=== PATIENT | female | born 1985 | race African-American/Black ===

== ENCOUNTER 2023-07-28 01:54 | Emergency (ER) | payer OTHER, MEDICAID, SELFPAY ==
[2023-07-28] VITALS (7 sets, daily range): BP systolic 102–127; BP diastolic 48–76; PULSE 58–95; RESP 14–16; TEMP 36.1–36.7; O2SAT 97–99; BMI 33.8
--- NOTE | 2023-07-28 | ECG_ITS ---
Test Reason : CHEST PAIN Blood Pressure : / mmHG Vent. Rate : 074 BPM Atrial Rate : 074 BPM P-R Int : 162 ms QRS Dur : 078 ms QT Int : 360 ms P-R-T Axes : 026 006 041 degrees QTc Int : 399 ms Normal sinus rhythm with sinus arrhythmia Cannot rule out Anterior infarct , age undetermined Abnormal ECG No previous ECGs available Referred By: Britt Lei Electronically Signed By:DANO MONTES
--- NOTE | ~2023-07-28 | XR_ITS ---
EXAMINATION: XR CHEST CLINICAL INFORMATION: Chest pain, shortness of breath COMPARISON: None available. TECHNIQUE: Frontal view of the chest was obtained. FINDINGS: The lungs are clear with no focal consolidation. No evidence of pneumothorax, pulmonary edema, or pleural effusions. The cardiomediastinal silhouette is unremarkable. No acute osseous findings. XR/XR chest 1V IMPRESSION: No acute cardiopulmonary findings.
--- OUTSIDE RECORDS SUMMARY | 2023-07-28 03:55 | XMS_ITS | Continuity of Care Document ---
Author Name Unknown Organization [facility] Adult Address [address] [place] [address]- Care Team Providers Care Heavy Equipment Sales Manager Name Role Phone Katie NOVOA, Alanis Primary Care Physician Encounter [facility] [place] Date(s): 06/07/21 - 07/07/[address] [address]- Allergies, Adverse Reactions, Alerts Substance Reaction Severity Status vancomycin pruritus Active RisperDAL Active Immunizations Given and Recorded Vaccine Date Status Refusal Reason SARS-CoV-2 (COVID-19) mRNA BNT-162b2 vac 04/15/21 Recorded SARS-CoV-2 (COVID-19) mRNA BNT-162b2 vac 03/25/21 Recorded influenza virus vaccine, inactivated 06/22/20 Francisco J rded influenza virus vaccine, inactivated 06/18/18 Francisco J rded influenza virus vaccine, inactivated 1 06/08/17 Gi kinsey influenza virus vaccine, inactivated 06/06/17 Francisco J rded influenza virus vaccine, inactivated 2 07/26/16 Gi kinsey influenza virus vaccine, inactivated 3 08/21/15 Re corded influenza virus vaccine, inactivated 4 05/25/14 Gi kinsey Influenza Virus Vaccine (oldterm) 06/08/20 Recorde d tetanus/diphtheria/pertussis, acel(Tdap) 09/03/17 Given hepatitis B adult vaccine 11/22/11 Recorded Hepatitis A Adult Vaccine 11/22/11 Recorded Human Papillomavirus Vaccine 07/27/08 Recorded tetanus-diphtheria toxoids (Td) 5 08/04/07 Given tetanus-diphtheria toxoids (Td) 6 07/28/98 Given hepatitis B pediatric vaccine 7 02/16/03 Given hepatitis B pediatric vaccine 8 07/22/00 Given hepatitis B pediatric vaccine 9 07/28/98 Given 1Admin Note: work 2[facility] Note: [facility] 3Result Comment: [09/18/2015] work 4Result Comment: wrong pt/tm 5Admin Note: VIS 6Admin Note: Given by nurse 7Admin Note: given by another practices. 8Admin Note: given by another practices. 9Admin Note: given by another practices. Medications ibuprofen 400 mg oral tablet 1, tablet, By Mouth, 2 times a day, PRN, # 60 tablet, Refills 1, Tot. Refills 0, Acute, NEEDED FOR MODERATE PAIN, 02/26/21 11:05:00 EDT, Route to Pharmacy Electronically, [facility], 162.5, cm, 01/15/21 9:10:00 EDT, Height Start Date: 02/26/21 Status: Ordered pantoprazole 40 mg oral delayed release tablet 1 tablet = 40 mg, By Mouth, Daily, # 30 tablet, 1 Refills, Maintenance, 05/03/21 15:46:00 EDT, EC Tablet, 162.5, cm, 05/03/21 13:05:00 EDT, Height Start Date: 05/03/21 Status: Ordered ZyrTEC 10 mg oral tablet 1 tablet = 10 mg, By Mouth, Daily, # 90 tablet, 3 Refills, Maintenance, 09/13/20 13:21:00 EST, Tablet, [facility] [place] [place] - [id number], 162.5, cm, 09/01/20 7:39:00 EST, Height, 109.5, kg, 10/20/18 21:30:00 EST, Dry Weight Start Date: 09/13/20 Stop Date: 09/08/21 Status: Ordered Problem List Condition Effective Dates Status Health Status Inform ant Bipolar disorder(Confirmed) Active Migraine headache(Confirmed) Active PCOS - Polycystic ovarian syndrome(Confirmed) 05/02/09 Active Prediabetes(Confirmed) Active Social History Social History Type Response Smoking Status 5-9 cigarettes (betw een 1/4 to 1/2 pack)/day in last 30 days entered on: 12/05/20 Sex
--- OUTSIDE RECORDS SUMMARY | 2023-07-28 03:55 | XMS_ITS | Continuity of Care Document ---
Author Name Unknown Organization [facility] ter Address [address] [place] [address]- Care Team Providers Care Chili Maker Name Role Phone Katie NOVOA, Alanis Primary Care Physician Encounter [facility] [place] Date(s): 06/07/21 - 06/07/[address] [address]- Discharge Disposition: A-D/C Home Attending Physician: Kris Quinn MD Admitting Physician: Kris Quinn MD Referring Physician: Not on Staff, Referring MD Allergies, Adverse Reactions, Alerts Substance Reaction Severity [...] Given 1Admin Note: work 2Admin Note: [facility] 3Result Comment: [09/18/2015] work 4Result Comment: wrong pt/tm 5Admin Note: VIS 6Admin Note: Given by nurse 7Admin Note: given by another practices. 8Admin Note: given by another practices. 9Admin Note: given by another practices. Medications hydrOXYzine pamoate 25 mg oral capsule 1 capsule = 25 mg, By Mouth, 3 times a day, PRN for anxiety, for 14 days, # 42 capsule, 0 Refills, Acute 06/18/21 11:15:00 EDT, 06/04/21 11:15:00 EDT, Capsule, [id number], Partial fill upon patient request if the prescription is for a... Start Date: 06/04/21 Stop Date: 06/18/21 Status: Ordered ibuprofen 400 mg oral tablet 1, tablet, By Mouth, 2 times a day, PRN, # 60 tablet, Refills 1, Tot. Refills 0, Acute, NEEDED FOR MODERATE PAIN, 02/26/21 11:05:00 EDT, Route to Pharmacy Electronically, [facility], 162.5, cm, 01/15/21 9:10:00 EDT, Height Start [...] 3 Refills, Maintenance, 09/13/20 13:21:00 EST, Tablet, [facility] [place], [place] - [phone], 162.5, cm, 09/01/20 7:39:00 EST, Height, 109.5, kg, 10/20/18 21:30:00 EST, Dry Weight Start Date: 09/13/20 Stop Date: 09/08/21 Status: Ordered Problem List Condition Effective Dates Status Health Status Inform ant Bipolar disorder(Confirmed) Active Migraine headache(Confirmed) Active PCOS - Polycystic ovarian syndrome(Confirmed) 05/02/09 Active Prediabetes(Confirmed) Active Vital Signs Most recent to oldest [Reference Range]: 1 2 3 Oxygen Saturation [94-100 %] 98 % (06/07/21 12:04 PM) 99 % (06/07/21 10:11 AM) 97 % (06/07/21 10:05 AM) Pulse Rate [55-90 bpm] 71 bpm (06/07/21 12:04 PM) 85 bpm (06/07/21 10:11 AM) 87 bpm (06/07/21 10:05 AM) Blood Pressure [90-138/55-84 mm Hg] 114/55mm Hg (06/07/21 12:04 PM) 176/73mm Hg *H* (06/07/21 10:11 AM) Respiratory Rate [16-30 br/min] 19 br/min (06/07/21 12:04 PM) 18 br/min (06/07/21 10:11 AM) Temperature [96.8-100.4 DegF] 97.4 DegF (06/07/21 10:11 AM) Mode of Delivery (Oxygen) Room air (06/07/21 12:04 PM) Room air (06/07/21 10:11 AM) Room air (06/07/21 10:05 AM) Temperature Route Oral (06/07/21 10:11 AM) Social History Social History Type Response Smoking Status 5-9 cigarettes (betw een 1/4 to 1/2 pack)/day in last 30 days entered on: 12/05/20 Sex
--- OUTSIDE RECORDS SUMMARY | 2023-07-28 03:55 | XMS_ITS | Continuity of Care Document ---
Author Name Unknown Organization [facility] Adult Address [address] [place] [address]- Care Team Providers Care Roller Skater Name Role Phone Alanis Wilson MD Primary Care Physician Encounter [facility] [place] Date(s): 10/14/19 - 02/11/20 [facility] [address] [place] [phone]- [facility] Attending Physician: Alanis Wilson MD Allergies, Adverse Reactions, Alerts Substance Reaction Severity Status vancomycin pruritus Active RisperDAL Active Immunizations Given and Recorded Vaccine Date Status Refusal Reason tetanus/diphtheria/pertussis, acel(Tdap) 09/03/17 Given influenza virus vaccine, inactivated 1 06/08/17 Gi kinsey influenza virus vaccine, inactivated 2 07/26/16 Gi kinsey influenza virus vaccine, inactivated 3 08/21/15 Re corded influenza virus vaccine, inactivated 4 05/25/14 Gi kinsey tetanus-diphtheria toxoids (Td) 5 08/04/07 Given tetanus-diphtheria [...] 9Admin Note: given by another practices. Medications Ativan 0.5 mg oral tablet 1 tablet = 0.5 mg, By Mouth, Daily, PRN as needed for anxiety, # 30 tablet, 0 Refills, Maintenance,04/01/20 12:57:00 EDT, [place], [place] -, 162.5, cm, 10/07/19 14:20:00 EST, Height, 109.5, kg, 10/20/18 21:30:00 EST, Dry Weight Start Date: 11/24/19 Stop Date: 12/24/19 Status: Ordered busPIRone 10 mg oral tablet 10 mg, 1, tablet, By Mouth, 2 times a day, # 60 tablet, Refills 11, Tot. Refills 11, Maintenance, 12/11/18 17:10:41 EDT, Route to Pharmacy Electronically, [id number], [facility] Start Date: 12/11/18 Stop Date: 12/06/19 Status: Ordered cholecalciferol 1000 intl units oral capsule 1 capsule = 1,000 International_Units, By Mouth, Daily, # 30 capsule, 11 Refills, Maintenance, 12/16/17 12:10:54 EDT, Capsule Start Date: 12/16/17 Status: Ordered famotidine 20 mg oral tablet 20 mg, 1, tablet, By Mouth, 2 times a day, # 60 tablet, Refills 2, Tot. Refills 2, Maintenance, 08/10/19 13:50:44 EST, Route to Pharmacy Electronically, [place], [place] -, 162.5, cm, 04/07/19 11:09:30 EDT, Height, 109.5, kg, 10/20/18... Start Date: 08/10/19 Status: Ordered ibuprofen 400 mg oral tablet 400 mg, 1, tablet, By Mouth, 2 times a day, PRN, # 90 tablet, Refills 1, Tot. Refills 1, Maintenance, Pain , Moderate, 02/09/20 11:30:00 EDT, Route to Pharmacy Electronically, [place], [place] -, 162.5, cm, 01/24/20 9:06:00 EDT, [facility]... Start Date: 02/09/20 Status: Ordered MetFORMIN (Eqv-Glucophage XR) 500 mg oral tablet, extended release 1 tablet = 500 mg, By Mouth, Daily, # 90 tablet, 3 Refills, Maintenance, 01/26/20 22:25:00 EDT, [place], [place] -, 162.5, cm, 01/24/20 9:06:00 EDT, Height, 109.5, kg, 10/20/18 21:30:00 EST, Dry Weight Start Date: 01/26/20 Status: Ordered metFORMIN 500 mg oral tablet 1 tablet = 500 mg, By Mouth, 2 times a day, # 60 tablet, 11 Refills, Maintenance, 12/16/17 12:12:09EDT, Tablet Start Date: 12/16/17 Stop Date: 12/11/18 Status: Ordered metFORMIN 500 mg oral tablet, extended release 1 tablet = 500 mg, By Mouth, Daily, # 90 tablet, 3 Refills, Maintenance, 01/26/20 22:22:00 EDT, ER Tablet, [place], [place] -, 162.5, cm, 01/24/20 9:06:00 EDT, Height, 109.5, kg, 10/20/18 21:30:00 EST, Dry Weight Start Date: 01/26/20 Status: Ordered omeprazole 20 mg oral enteric coated capsule 1 capsule = 20 mg, By Mouth, Daily, # 30 capsule, 2 Refills, Maintenance, 01/21/20 11:11:00 EDT, ECCapsule, [place], [place] -, 162.5, cm, 01/13/20 11:04:00 EDT, Height, 109.5, kg, 10/20/18 21:30:00 EST, Dry Weight Start Date: 01/21/20 Status: Ordered Wellbutrin SR 150 mg/12 hours oral tablet, extended release 1 tablet = 150 mg, By Mouth, 2 times a day, # 60 tablet, 3 Refills, Maintenance, 10/21/18 15:03:19 EST, ER Tablet Start Date: 10/21/18 Stop Date: 02/18/19 Status: Ordered ZyrTEC 10 mg oral tablet 1 tablet = 10 mg, By Mouth, Daily, # 30 tablet, 0 Refills, Maintenance, 04/07/19 15:46:52 EDT, Tablet Start Date: 04/07/19 Status: Ordered Problem List Condition Effective Dates Status Health Status Inform ant Bipolar disorder, curr episo de depressed, severe, w/psychotic features(Confirmed) 05/10/09 Active Migraine headache(Confirmed) Active PCOS - Polycystic ovarian syndrome(Confirmed) 05/02/09 Active Severe obesity(Confirmed) Active Social History Social History Type Response Smoking Status Former smoker; Type: Cigarettes; Other: quit 4 years ago; entered on: 10/28/17 Sex
--- OUTSIDE RECORDS SUMMARY | 2023-07-28 03:55 | XMS_ITS | Continuity of Care Document ---
Author Name Unknown Organization [facility] Adult Address [address] [place] [address]- Care Team Providers Care Spraying Machine Operator Name Role Phone Katie NOVOA, Alanis Primary Care Physician Encounter [facility] Date(s): 06/07/21 - 07/07/[address] [address]- Allergies, Adverse Reactions, Alerts Substance Reaction Severity [...] 02/26/21 11:05:00 EDT, Route to Pharmacy Electronically, [facility], 162.5, cm, 01/15/21 9:10:00 EDT, Height [...] 3 Refills, Maintenance, 09/13/20 13:21:00 EST, Tablet, [facility] [place], [place] - [id number], 162.5, cm, 09/01/20 7:39:00 EST, Height, 109.5, [...]
--- OUTSIDE RECORDS SUMMARY | 2023-07-28 03:55 | XMS_ITS | Continuity of Care Document ---
Author Name Unknown Organization [facility] ter Address [address] [place] [address]- Care Team Providers Care Behavior Analyst Name Role Phone Alanis Wilson MD Primary Care Physician [phone] Encounter [facility] [place] Date(s): 01/06/21 - 01/07/[address] [address]- Encounter Diagnosis Chest pain(Final) - 01/07/21 Discharge Disposition: A-D/C Home Attending Physician: Kory Carroll MD Admitting Physician: Kory Carroll MD Referring Physician: Not on Staff, Referring MD Allergies, Adverse Reactions, Alerts Substance Reaction Severity Status vancomycin pruritus Active RisperDAL Active Immunizations Given and Recorded Vaccine Date Status Refusal Reason Influenza Virus Vaccine (oldterm) 06/08/20 Recorde d tetanus/diphtheria/pertussis, acel(Tdap) 09/03/17 Given influenza virus vaccine, [...] for anxiety, # 30 tablet, 0 Refills, Maintenance,08/24/20 17:36:00 EST, [facility] #[id number], 162.5, cm, 08/01/20 15:54:00 EST, Height, 109.5, kg, 10/20/18 21:30:00 EST, Dry Weight Start Date: 08/24/20 Status: Ordered ibuprofen 400 mg oral tablet 400 mg, 1, tablet, By Mouth, 2 times a day, PRN, # 90 tablet, Refills 1, Tot. Refills 1, Maintenance, Pain , Moderate, 02/09/20 11:30:00 EDT, Route to Pharmacy Electronically, [place], [place] -, 162.5, cm, 01/24/20 9:06:00 EDT, [facility]... Start Date: 02/09/20 Status: Ordered omeprazole 20 mg oral enteric coated capsule 1 capsule = 20 mg, By Mouth, Daily, # 30 capsule, 2 Refills, Maintenance, 12/21/20 15:26:00 EDT, ECCapsule, [facility] #[id number], 162.5, cm, 12/05/20 12:55:00 EDT, Height Start Date: 12/21/20 Status: Ordered ZyrTEC 10 mg oral tablet 1 tablet = 10 mg, By Mouth, Daily, # 90 tablet, 3 Refills, Maintenance, 09/13/20 13:21:00 EST, Tablet, [place], [place] - [phone], 162.5, cm, 09/01/20 7:39:00 EST, Height, 109.5, kg, 10/20/18 21:30:00 EST, Dry Weight Start Date: 09/13/20 Stop Date: 09/08/21 Status: Ordered Problem List Condition Effective Dates Status Health Status Inform ant Bipolar disorder(Confirmed) Active Migraine headache(Confirmed) Active PCOS - Polycystic ovarian syndrome(Confirmed) 05/02/09 Active Vital Signs Most recent to oldest [Reference Range]: 1 2 Oxygen Saturation [94-100 %] 96 % (01/07/21 12:58 AM) 100 % (01/06/21 9:15 PM) Pulse Rate [55-90 bpm] 81 bpm (01/07/21 12:58 AM) 105 bpm *H* (01/06/21 9:15 PM) Blood Pressure [90-138/55-84 mm Hg] 115/ 71mm Hg (01/07/21 12:58 AM) 127/83mm Hg (01/06/21 9:15 PM) Respiratory Rate [16-30 br/min] 16 br/mi n (01/07/21 12:58 AM) 19 br/min (01/06/21 9:15 PM) Temperature [96.8-100.4 DegF] 98.1 DegF (01/07/21 12:58 AM) 99.3 DegF (01/06/21 9:15 PM) Mode of Delivery (Oxygen) Room air (01/07/21 12:58 AM) Room air (01/06/21 9:15 PM) Blood pressure sites Arm, left (01/07/21 12:58 AM) Arm, right (01/06/21 9:15 PM) Temperature Route Oral (01/07/21 12:58 AM) Oral (01/06/21 9:15 PM) Social History Social History Type Response Smoking Status 5-9 cigarettes (betw een 1/4 to 1/2 pack)/day in last 30 days entered on: 12/05/20 Sex
--- OUTSIDE RECORDS SUMMARY | 2023-07-28 03:55 | XMS_ITS | Continuity of Care Document ---
Author Name Unknown Organization [facility] Adult Address [address] [place] [address]- Care Team Providers Care Animal Laboratory Technician Name Role Phone Katie NOVOA, Alanis Primary Care Physician En[place] [facility] [place] Date(s): 12/05/20 - 12/12/20 [facility] [address] [place] [address]- Encounter Diagnosis Well adult exam(Discharge Diagnosis) - 12/05/20 Medicare annual wellness visit, subsequent(Discharge Diagnosis) - 12/05/20 Bipolar disorder(Discharge Diagnosis) - 12/06/20 Migraine headache(Discharge Diagnosis) - 12/06/20 Attending Physician: Alanis Wilson MD Allergies, Adverse [...] 30 tablet, 0 Refills, Maintenance,08/24/20 17:36:00 EST, [id number], 162.5, cm, 08/01/20 15:54:00 EST, Height, 109.5, kg, 10/20/18 21:30:00 EST, Dry Weight Start Date: 08/24/20 Status: Ordered ibuprofen 400 mg oral tablet 400 mg, 1, tablet, By Mouth, 2 times a day, PRN, # 90 tablet, Refills 1, Tot. Refills 1, Maintenance, Pain , Moderate, 02/09/20 11:30:00 EDT, Route to Pharmacy Electronically, [place], [place] -, 162.5, cm, 01/24/20 9:06:00 EDT, Joy... Start Date: 02/09/20 Status: Ordered omeprazole 20 mg oral enteric coated capsule 1 capsule = 20 mg, By Mouth, Daily, # 30 capsule, 2 Refills, Maintenance, 10/04/20 14:06:00 EST, ECCapsule, [facility][id number], 162.5, cm, 09/01/20 7:39:00 EST, Height, 109.5, kg, 10/20/18 21:30:00 EST, Dry Weight Start Date: 10/04/20 Status: Ordered ZyrTEC 10 mg oral tablet 1 tablet = 10 mg, By Mouth, Daily, # 90 tablet, 3 Refills, Maintenance, 09/13/20 13:21:00 EST, Tablet, [place], [place] - [id number], 162.5, cm, 09/01/20 7:39:00 EST, Height, 109.5, kg, 10/20/18 21:30:00 EST, Dry Weight Start Date: 09/13/20 Stop Date: 09/08/21 Status: Ordered Problem List Condition Effective Dates Status Health Status Inform ant Bipolar disorder(Confirmed) Active Migraine headache(Confirmed) Active PCOS - Polycystic ovarian syndrome(Confirmed) 05/02/09 Active Diagnosis Diagnosis Type Effective Dates Health Status Clinical Service Informant Well adult exam Discharge Diagnosis 12/05/20 Medicare annual wellness visit, subsequent Discharge Diagnosis 12/05/20 Bipolar disorder Discharge Diagnosis 12/06/20 Migraine headache Discharge Diagnosis 12/06/20 Vital Signs Most recent to oldest [Reference Range]: 1 Height 162.5 cm (12/05/20 12:55 PM) Weight 103.2 kg (12/05/20 12:55 PM) Oxygen Saturation [94-100 %] 97 % (12/05/20 12:55 PM) Pulse Rate [55-90 bpm] 95 bpm *H* (12/05/20 12:55 PM) Body Mass Index [18.5-24.99] 39.08 *>HHI* (12/05/20 12:55 PM) Blood Pressure [90-138/55-84 mm Hg] 92/6 2mm Hg (12/05/20 12:55 PM) Mode of Delivery (Oxygen) Room air (12/05/20 12:55 PM) Blood pressure sites Arm, left (12/05/20 12:55 PM) Weight Obtained Via Standing scale (12/05/20 12:55 PM) Social History Social History Type Response Smoking Status 5-9 cigarettes (betw een 1/4 to 1/2 pack)/day in last 30 days entered on: 12/05/20 Sex
--- OUTSIDE RECORDS SUMMARY | 2023-07-28 03:55 | XMS_ITS | Continuity of Care Document ---
Author Name Unknown Organization [facility] Adult Address [address] [place] [address]- Care Team Providers Care Small Business Sales Representative Name Role Phone Katie NOVOA, Alanis Primary Care Physician [phone] En[place] [facility] [place] 11/10/20 - 11/17/20 [facility] [address] [place] [address]- Encounter Diagnosis Migraine headache(Discharge Diagnosis) - 11/10/20 Dizziness(Discharge Diagnosis) - 11/10/20 Attending Physician: Gabriela Kumar NP Allergies, Adverse Reactions, Alerts Substance Reaction Severity [...] 30 tablet, 0 Refills, Maintenance,08/24/20 17:36:00 EST, [facility] #[id number], 162.5, cm, 08/01/20 15:54:00 EST, Height, 109.5, kg, 10/20/18 21:30:00 EST, Dry Weight Start Date: 08/24/20 Status: Ordered ibuprofen 400 mg oral tablet 400 mg, 1, tablet, By Mouth, 2 times a day, PRN, # 90 tablet, Refills 1, Tot. Refills 1, Maintenance, Pain , Moderate, 02/09/20 11:30:00 EDT, Route to Pharmacy Electronically, [place], [place] -, 162.5, cm, 01/24/20 9:06:00 EDT, Joy... Start Date: 02/09/20 Status: Ordered omeprazole 20 mg oral enteric coated capsule 1 capsule = 20 mg, By Mouth, Daily, # 30 capsule, 2 Refills, Maintenance, 10/04/20 14:06:00 EST, ECCapsule, [facility] #[id number], 162.5, cm, 09/01/20 7:39:00 EST, Height, 109.5, kg, 10/20/18 21:30:00 EST, Dry Weight Start Date: 10/04/20 Status: Ordered ZyrTEC 10 mg oral tablet 1 tablet = 10 mg, By Mouth, Daily, # 90 tablet, 3 Refills, Maintenance, 09/13/20 13:21:00 EST, Tablet, [place], [place] - [id number], 162.5, cm, 09/01/20 7:39:00 EST, Height, 109.5, kg, 10/20/18 21:30:00 EST, Dry Weight Start Date: 09/13/20 Stop Date: 09/08/21 Status: Ordered Problem List Condition Effective Dates Status Health Status Inform ant Bipolar disorder(Confirmed) Active Migraine headache(Confirmed) Active PCOS - Polycystic ovarian syndrome(Confirmed) 05/02/09 Active Diagnosis Diagnosis Type Effective Dates Health Status Cl inical Service Informant Migraine headache Discharge Diagnosis 11/10/20 Dizziness Discharge Diagnosis 11/10/20 Vital Signs Most recent to oldest [Reference Range]: 1 Height 162.5 cm (11/10/20 9:40 AM) Weight 102.2 kg (11/10/20 9:40 AM) Body Mass Index [18.5-24.99] 38.7 *>HHI* (11/10/20 9:40 AM) Weight Obtained Via Patient/family state d (11/10/20 9:40 AM) Social History Social History Type Response Smoking Status Former smoker; Type: Cigarettes; Other: quit 4 years ago; entered on: 10/28/17 Sex
--- OUTSIDE RECORDS SUMMARY | 2023-07-28 03:55 | XMS_ITS | Continuity of Care Document ---
Author Name Unknown Organization [facility] Adult Address [address] [place] [address]- Care Team Providers Care Representative Personal Service Name Role Phone Alanis Wilson MD Primary Care Physician En[place] [facility] [place](s): 11/11/20 - 12/11/20 [facility] [address] [place] [address]- Allergies, Adverse Reactions, Alerts Substance Reaction Severity [...] 30 tablet, 0 Refills, Maintenance,08/24/20 17:36:00 EST, [facility] #[id number], 162.5, cm, 08/01/20 15:54:00 EST, Height, 109.5, kg, 10/20/18 21:30:00 EST, Dry Weight Start Date: 08/24/20 Status: Ordered ibuprofen 400 mg oral tablet 400 mg, 1, tablet, By Mouth, 2 times a day, PRN, # 90 tablet, Refills 1, Tot. Refills 1, Maintenance, Pain , Moderate, 02/09/20 11:30:00 EDT, Route to Pharmacy Electronically, [place], [place] -, 162.5, cm, 01/24/20 9:06:00 EDT, .. Start Date: 02/09/20 Status: Ordered omeprazole 20 mg oral enteric coated capsule 1 capsule = 20 mg, By Mouth, Daily, # 30 capsule, 2 Refills, Maintenance, 10/04/20 14:06:00 EST, ECCapsule, [facility] #[id number], 162.5, cm, 09/01/20 7:39:00 EST, Height, 109.5, kg, 10/20/18 21:30:00 EST, Dry Weight Start Date: 10/04/20 Status: Ordered ZyrTEC 10 mg oral tablet 1 tablet = 10 mg, By Mouth, Daily, # 90 tablet, 3 Refills, Maintenance, 09/13/20 13:21:00 EST, Tablet, [place], [place] - [id number], 162.5, cm, 09/01/20 7:39:00 EST, Height, 109.5, kg, 10/20/18 21:30:00 EST, Dry Weight Start Date: 09/13/20 Stop Date: 09/08/21 Status: Ordered Problem List Condition Effective Dates Status Health Status Inform ant Bipolar disorder(Confirmed) Active Migraine headache(Confirmed) Active PCOS - Polycystic ovarian syndrome(Confirmed) 05/02/09 Active Social History Social History Type Response Smoking Status 5-9 cigarettes (betw een 1/4 to 1/2 pack)/day in last 30 days entered on: 12/05/20 Sex
--- OUTSIDE RECORDS SUMMARY | 2023-07-28 03:55 | XMS_ITS | Continuity of Care Document ---
Author Name Unknown Organization [facility] Adult Address [address] [place] [address]- Care Team Providers Care Physical Design Engineer Name Role Phone Alanis Wilson MD Primary Care Physician Encounter [facility] [place] Date(s): 09/01/20 - 10/01/20 [facility] Adult [address] [place] [address]- Attending Physician: Danish Harris Admitting Physician: AdmtrDanish Referring Physician: Admtr, Danish Allergies, Adverse Reactions, Alerts Substance Reaction Severity [...] 30 tablet, 0 Refills, Maintenance,08/24/20 17:36:00 EST, [facility] #[id number], 162.5, cm, 08/01/20 15:54:00 EST, Height, 109.5, kg, 10/20/18 21:30:00 EST, Dry Weight Start Date: 08/24/20 Status: Ordered ibuprofen 400 mg oral tablet 400 mg, 1, tablet, By Mouth, 2 times a day, PRN, # 90 tablet, Refills 1, Tot. Refills 1, Maintenance, Pain , Moderate, 02/09/20 11:30:00 EDT, Route to Pharmacy Electronically, [place], [place] -, 162.5, cm, 01/24/20 9:06:00 EDT, [facility]... Start Date: 02/09/20 Status: Ordered omeprazole 20 mg oral enteric coated capsule 1 capsule = 20 mg, By Mouth, Daily, # 30 capsule, 2 Refills, Maintenance, 05/04/20 9:38:00 EDT, EC Capsule, [facility] #[id number], 162.5, cm, 04/27/20 11:13:00 EDT, Height, 109.5, kg, 10/20/18 21:30:00 EST, Dry Weight Start Date: 05/04/20 Status: Ordered ZyrTEC 10 mg oral tablet 1 tablet = 10 mg, By Mouth, Daily, # 90 tablet, 3 Refills, Maintenance, 09/13/20 13:21:00 EST, Tablet, [place], [place] - [id number], 162.5, cm, 09/01/20 7:39:00 EST, Height, 109.5, [...]
--- OUTSIDE RECORDS SUMMARY | 2023-07-28 03:55 | XMS_ITS | Continuity of Care Document ---
Author Name Unknown Organization [facility] Address [address] [place] [address]- Care Team Providers Care Eyeletter Name Role Phone Alanis Wilson MD Primary Care Physician [phone] Encounter [facility] [place] Date(s): 05/24/21 - 07/07/21 [facility] [address] [place] [address]- Attending Physician: Gino Mcgrath MD Admitting Physician: Gino Mcgrath MD Referring Physician: Alanis Wilson MD Allergies, Adverse Reactions, [...] 02/26/21 11:05:00 EDT, Route to Pharmacy Electronically, [facility], 162.5, cm, 01/15/21 9:10:00 EDT, [...] 3 Refills, Maintenance, 09/13/20 13:21:00 EST, Tablet, [facility] - [place], [place] - [id number], 162.5, cm, 09/01/20 7:39:00 EST, Height, 109.5, [...]
--- OUTSIDE RECORDS SUMMARY | 2023-07-28 03:55 | XMS_ITS | Continuity of Care Document ---
Author Name Unknown Organization [facility] Adult Address [address] [place] [address]- Care Team Providers Care Restoration Silversmith Name Role Phone Alanis Wilson MD Primary Care Physician Encounter [facility] [place] Date(s): 09/01/20 - 09/08/20 [facility] Adult [address] [place] [address]- Encounter Diagnosis High creatinine(Discharge Diagnosis) - 09/01/20 Bipolar disorder(Discharge Diagnosis) - 09/01/20 Attending Physician: Alanis Wilson MD Allergies, Adverse [...] 30 tablet, 0 Refills, Maintenance,08/24/20 17:36:00 EST, [facility] #[id number], 162.5, cm, 08/01/20 15:54:00 EST, Height, 109.5, kg, 10/20/18 21:30:00 EST, Dry Weight Start Date: 08/24/20 Status: Ordered ibuprofen 400 mg oral tablet 400 mg, 1, tablet, By Mouth, 2 times a day, PRN, # 90 tablet, Refills 1, Tot. Refills 1, Maintenance, Pain , Moderate, 02/09/20 11:30:00 EDT, Route to Pharmacy Electronically, [place], [place] -, 162.5, cm, 01/24/20 9:06:00 EDT, [facility]... Start Date: 02/09/20 Status: Ordered omeprazole 20 mg oral enteric coated capsule 1 capsule = 20 mg, By Mouth, Daily, # 30 capsule, 2 Refills, Maintenance, 05/04/20 9:38:00 EDT, EC Capsule, [facility] #[id number], 162.5, cm, 04/27/20 11:13:00 EDT, Height, 109.5, kg, 10/20/18 21:30:00 EST, Dry Weight Start Date: 05/04/20 Status: Ordered Problem List Condition Effective Dates Status Health Status Inform ant Bipolar disorder(Confirmed) Active Migraine headache(Confirmed) Active PCOS - Polycystic ovarian syndrome(Confirmed) 05/02/09 Active Diagnosis Diagnosis Type Effective Dates Health Status Clinical Service Informant High creatinine Discharge Diagnosis 09/01/20 Bipolar disorder Discharge Diagnosis 09/01/20 Vital Signs Most recent to oldest [Reference Range]: 1 Height 162.5 cm (09/01/20 7:39 AM) Social History Social History Type Response Smoking Status Former smoker; Type: Cigarettes; Other: quit 4 years ago; entered on: 10/28/17 Sex
--- OUTSIDE RECORDS SUMMARY | 2023-07-28 03:55 | XMS_ITS | Continuity of Care Document ---
Author Name Unknown Organization [facility] Adult Address [address] [place] [address]- Care Team Providers Care International Representative Name Role Phone Alanis Wilson MD Primary Care Physician En[place] [facility] [place] Date(s): 08/24/20 - 09/23/20 [facility] [address] [place] [address]- Allergies, Adverse Reactions, Alerts Substance Reaction Severity [...] 30 tablet, 0 Refills, Maintenance,08/24/20 17:36:00 EST, [id number], 162.5, cm, 08/01/20 15:54:00 EST, Height, 109.5, kg, 10/20/18 21:30:00 EST, Dry Weight Start Date: 08/24/20 Status: Ordered ibuprofen 400 mg oral tablet 400 mg, 1, tablet, By Mouth, 2 times a day, PRN, # 90 tablet, Refills 1, Tot. Refills 1, Maintenance, Pain , Moderate, 02/09/20 11:30:00 EDT, Route to Pharmacy Electronically, [place], [place] -, 162.5, cm, 01/24/20 9:06:00 EDT, [facility]... Start Date: 02/09/20 Status: Ordered omeprazole 20 mg oral enteric coated capsule 1 capsule = 20 mg, By Mouth, Daily, # 30 capsule, 2 Refills, Maintenance, 05/04/20 9:38:00 EDT, EC Capsule, [facility] #[id number], 162.5, cm, 04/27/20 11:13:00 EDT, Height, 109.5, kg, 10/20/18 21:30:00 EST, Dry Weight Start Date: 05/04/20 Status: Ordered ZyrTEC 10 mg oral tablet 1 tablet = 10 mg, By Mouth, Daily, # 90 tablet, 3 Refills, Maintenance, 09/13/20 13:21:00 EST, Tablet, [place], [place] - [id number], 162.5, cm, 09/01/20 7:39:00 EST, Height, 109.5, [...]
--- OUTSIDE RECORDS SUMMARY | 2023-07-28 03:55 | XMS_ITS | Continuity of Care Document ---
Author Name Unknown Organization [facility] Adult Address [address] [place] [address]- Care Team Providers Care Dinkey Locomotive Operator Name Role Phone Alanis Wilson MD Primary Care Physician [place] [facility] [place]10[place] - 06/09/20 [facility] Adult [address] [place] [address]- [facility] Allergies, Adverse Reactions, Alerts Substance Reaction Severity [...] for anxiety, # 30 tablet, 0 Refills, Maintenance,11/24/19 12:57:00 EDT, [place], [place] -, 162.5, cm, 10/07/19 14:20:00 EST, Height, 109.5, kg, 10/20/18 21:30:00 EST, Dry Weight Start Date: 11/24/19 Stop Date: 12/24/19 Status: Ordered cholecalciferol 1000 intl units oral capsule 1 capsule = 1,000 International_Units, By Mouth, Daily, # 30 capsule, 11 Refills, Maintenance, 12/16/17 12:10:54 EDT, Capsule Start Date: 12/16/17 Status: Ordered famotidine 20 mg oral tablet 20 mg, 1, tablet, By Mouth, 2 times a day, # 60 tablet, Refills 2, Tot. Refills 2, Maintenance, 08/10/19 13:50:44 EST, Route to Pharmacy Electronically, [place], [place] -, 162.5, cm, 04/07/19 11:09:30 EDT, Height, 109.5, kg, 10/20/18... Start Date: 08/10/19 Status: Ordered ibuprofen 400 mg oral tablet 400 mg, 1, tablet, By Mouth, 2 times a day, PRN, # 90 tablet, Refills 1, Tot. Refills 1, Maintenance, Pain , Moderate, 02/09/20 11:30:00 EDT, Route to Pharmacy Electronically, [place], [place] -, 162.5, cm, 01/24/20 9:06:00 EDT, Joy... Start Date: 02/09/20 Status: Ordered MetFORMIN (Eqv-Glucophage XR) 500 mg oral tablet, extended release 1 tablet = 500 mg, By Mouth, Daily, # 90 tablet, 3 Refills, Maintenance, 01/26/20 22:25:00 EDT, [place], [place] -, 162.5, cm, 01/24/20 9:06:00 EDT, [...] Refills, Maintenance, 01/26/20 22:22:00 EDT, ER Tablet, [place], [place] -, 162.5, cm, 01/24/20 9:06:00 EDT, Height, 109.5, kg, 10/20/18 21:30:00 EST, Dry Weight Start Date: 01/26/20 Status: Ordered omeprazole 20 mg oral enteric coated capsule 1 capsule = 20 mg, By Mouth, Daily, # 30 capsule, 2 Refills, Maintenance, 05/04/20 9:38:00 EDT, EC Capsule, [facility] #[id number], 162.5, cm, 04/27/20 11:13:00 EDT, Height, 109.5, kg, 10/20/18 21:30:00 EST, Dry Weight Start Date: 05/04/20 Status: Ordered sertraline 100 mg oral tablet 1 tablet = 100 mg, By Mouth, Daily, # 7 tablet, 0 Refills, Maintenance, 04/07/20 13:06:00 EDT, [facility] #[id number], 162.5, cm, 04/07/20 10:29:00 EDT, Height, 109.5, kg, 10/20/18 21:30:00 EST,Dry Weight Start Date: 04/07/20 Stop Date: 04/14/20 Status: Ordered sertraline 100 mg oral tablet 1.5 tablet = 150 mg, By Mouth, Daily, # 45 tablet, 0 Refills, Maintenance, 04/14/20 13:10:00 EDT, [facility] #[id number], 162.5, cm, 04/07/20 10:29:00 EDT, Height, 109.5, kg, 10/20/18 21:30:00 EST, Dry Weight Start Date: 04/14/20 Stop Date: 05/14/20 Status: Ordered ZyrTEC 10 mg oral tablet [...]
--- OUTSIDE RECORDS SUMMARY | 2023-07-28 03:55 | XMS_ITS | Continuity of Care Document ---
Author Name Unknown Organization [facility] Adult Address [address] [place] [address]- Care Team Providers Care Contact Lens Assistant Name Role Phone Katie NOVOA, Alanis Primary Care Physician [place] [facility] [place] - 07/07/[address] [address]- Attending Physician: Alanis Wilson MD Allergies, Adverse [...] 02/26/21 11:05:00 EDT, Route to Pharmacy Electronically, [facility], 162.5, cm, 01/15/21 9:10:00 EDT, [...] 3 Refills, Maintenance, 09/13/20 13:21:00 EST, Tablet, [facility] - [place], [place] - [id number], 162.5, cm, 09/01/20 7:39:00 EST, Height, 109.5, kg, 10/20/18 21:30:00 EST, Dry Weight Start Date: 09/13/20 Stop Date: 09/08/21 Status: Ordered Problem List Condition Effective Dates Status Health Status Inform ant Bipolar disorder(Confirmed) Active Migraine headache(Confirmed) Active PCOS - Polycystic ovarian syndrome(Confirmed) 05/02/09 Active Prediabetes(Confirmed) Active Vital Signs Most recent to oldest [Reference Range]: 1 Height 162 cm (06/07/21 8:36 AM) Weight 97.52 kg (06/07/21 8:36 AM) Body Mass Index [18.5-24.99] 37.16 *>HHI* (06/07/21 8:36 AM) Weight Obtained Via Patient/family state d (06/07/21 8:36 AM) Social History Social History Type Response Smoking Status 5-9 cigarettes (kerryw een 1/4 to 1/2 pack)/day in last 30 days entered on: 12/05/20 Sex
--- OUTSIDE RECORDS SUMMARY | 2023-07-28 03:55 | XMS_ITS | Continuity of Care Document ---
Author Name Unknown Organization [facility] Adult Address [address] [place] [address]- Care Team Providers Care Energy Efficiency Finance Manager Name Role Phone Katie NOVOA, Alanis Primary Care Physician Encounter [facility] Date(s): 05/16/21 - 06/15/[address] [address]- Allergies, Adverse Reactions, Alerts Substance Reaction Severity [...] 06/18/21 11:15:00 EDT, 06/04/21 11:15:00 EDT, Capsule, [facility] #[id number], Partial fill upon patient request if the prescription is for a... Start Date: 06/04/21 Stop Date: 06/18/21 Status: Ordered ibuprofen 400 mg oral tablet 1, tablet, By Mouth, 2 times a day, PRN, # 60 tablet, Refills 1, Tot. Refills 0, Acute, NEEDED FOR MODERATE PAIN, 02/26/21 11:05:00 EDT, Route to Pharmacy Electronically, [facility], 162.5, cm, 01/15/21 9:10:00 EDT, [...] 3 Refills, Maintenance, 09/13/20 13:21:00 EST, Tablet, [facility] - [place], [place] - [id number], 162.5, cm, 09/01/20 7:39:00 EST, Height, 109.5, [...]
--- OUTSIDE RECORDS SUMMARY | 2023-07-28 03:55 | XMS_ITS | Continuity of Care Document ---
Author Name Unknown Organization [facility] Adult Address [address] [place] [address]- Care Team Providers Care Mems Process Engineer Name Role Phone Katie NOVOA, Alanis Primary Care Physician [place] [facility] [place] 04/24[place] - 05/24/21 [facility] [address] [place] [address]- Attending Physician: Gabriela Kumar NP Allergies, Adverse [...] 02/16/03 Given hepatitis B pediatric vaccine 8 11/28/00 Given hepatitis B pediatric vaccine 9 07/28/98 [...] Daily, PRN as needed for anxiety, # 15 tablet, 0 Refills, Maintenance,05/04/21 9:36:00 EDT, [facility] [id number], 162.5, cm, 05/03/21 13:05:00 EDT, Height Start Date: 05/04/21 Status: Ordered ibuprofen 400 mg oral tablet 1, tablet, By Mouth, 2 times a day, PRN, # 60 tablet, Refills 1, Tot. Refills 0, Acute, NEEDED FOR MODERATE PAIN, 02/26/21 11:05:00 EDT, Route to Pharmacy Electronically, [facility], 162.5, cm, 01/15/21 9:10:00 EDT, Height [...] 3 Refills, Maintenance, 09/13/20 13:21:00 EST, Tablet, [facility], [place] - [id number], 162.5, cm, 09/01/20 7:39:00 EST, Height, 109.5, [...]
--- OUTSIDE RECORDS SUMMARY | 2023-07-28 03:55 | XMS_ITS | Continuity of Care Document ---
Author Name Unknown Organization [facility] Adult Address [address] [place] [address]- Care Team Providers Care Flat Lock Machine Operator Name Role Phone Katie NOVOA, Alanis Primary Care Physician Encounter [facility] [place] Date(s): 09/06/21 - 10/06/[address] [address]- Allergies, Adverse Reactions, Alerts Substance Reaction Severity Status vancomycin pruritus Active RisperDAL Active Immunizations Given and Recorded Vaccine Date Status Refusal Reason influenza virus vaccine, inactivated 06/20/21 Francisco J rded influenza virus vaccine, inactivated 06/22/20 Francisco J rded influenza virus vaccine, inactivated 06/18/18 Francisco J rded influenza virus vaccine, inactivated 1 06/08/17 Gi kinsey influenza virus vaccine, inactivated 06/06/17 Francisco J rded influenza virus vaccine, inactivated 2 07/26/16 Gi kinsey influenza virus vaccine, inactivated 3 08/21/15 Re corded influenza virus vaccine, inactivated 4 05/25/14 Gi kinsey SARS-CoV-2 (COVID-19) mRNA BNT-162b2 vac 04/15/21 Recorded SARS-CoV-2 (COVID-19) mRNA BNT-162b2 vac 03/25/21 Recorded Influenza Virus Vaccine (oldterm) 06/08/20 Recorde d tetanus/diphtheria/pertussis, acel(Tdap) 09/03/17 Given hepatitis B adult vaccine 11/22/11 Recorded Hepatitis A Adult Vaccine 11/22/11 Recorded Human Papillomavirus Vaccine 07/27/08 Recorded tetanus-diphtheria toxoids (Td) 5 08/04/07 Given tetanus-diphtheria toxoids (Td) 6 07/28/98 Given hepatitis B pediatric vaccine 7 6/25/03 Given hepatitis B pediatric vaccine 8 07/22/00 [...] 02/26/21 11:05:00 EDT, Route to Pharmacy Electronically, [facility], 162.5, cm, 01/15/21 9:10:00 EDT, [...] 3 Refills, Maintenance, 09/13/20 13:21:00 EST, Tablet, [facility] [place], [place] - [id number], 162.5, cm, 09/01/20 7:39:00 EST, Height, 109.5, [...]
--- OUTSIDE RECORDS SUMMARY | 2023-07-28 03:55 | XMS_ITS | Continuity of Care Document ---
Author Name Unknown Organization [facility] Address [address] [place] [address]- Care Team Providers Care Cytology Supervisor Name Role Phone Katie NOVOA, Alanis Primary Care Physician Encounter [facility] Date(s): 02/13/21 - 03/25/[address] [address] Attending Physician: Gabriela Kumar NP Admitting Physician: Gabriela Kumar NP Referring Physician: Gabriela Kumar NP Allergies, Adverse Reactions, [...] 30 tablet, 0 Refills, Maintenance,08/24/20 17:36:00 EST, [facility] #[id number], 162.5, cm, 08/01/20 15:54:00 EST, Height, 109.5, kg, 10/20/18 21:30:00 EST, Dry Weight Start Date: 08/24/20 Status: Ordered ibuprofen 400 mg oral tablet 1, tablet, By Mouth, 2 times a day, PRN, # 60 tablet, Refills 1, Tot. Refills 0, Acute, NEEDED FOR MODERATE PAIN, 02/26/21 11:05:00 EDT, Route to Pharmacy Electronically, [facility], 162.5, cm, 01/15/21 9:10:00 EDT, Height Start Date: 02/26/21 Status: Ordered omeprazole 20 mg oral enteric coated capsule 1 capsule, By Mouth, Daily, # 30 capsule, 2 Refills, Maintenance, 02/26/21 11:05:00 EDT, [facility], 162.5, cm, 01/15/21 9:10:00 EDT, Height Start Date: 02/26/21 Status: Ordered ZyrTEC 10 mg oral tablet 1 tablet = 10 mg, By Mouth, Daily, # 90 tablet, 3 Refills, Maintenance, 09/13/20 13:21:00 EST, Tablet, [place], [place] - [id number], 162.5, cm, 09/01/20 7:39:00 EST, Height, 109.5, [...]
--- OUTSIDE RECORDS SUMMARY | 2023-07-28 03:55 | XMS_ITS | Continuity of Care Document ---
Author Name Unknown Organization [facility] Adult Address [address] [place] [address]- Care Team Providers Care Director Trade Name Role Phone Not on Staff, PCP Primary Care Physician Unavail able Encounter [facility] Date(s): 11/16/21 - 12/16/21 [facility] [address] [place] [id number] Attending Physician: Danish Harris Admitting Physician: AdmDanish hudson Referring Physician: AdmtrDanish Allergies, Adverse Reactions, Alerts Substance Reaction Severity [...] 02/26/21 11:05:00 EDT, Route to Pharmacy Electronically, [facility], 162.5, cm, 01/15/21 9:10:00 EDT, [...] 3 Refills, Maintenance, 09/13/20 13:21:00 EST, Tablet, [facility] [place], [place] - [id number], 162.5, cm, 09/01/20 7:39:00 EST, Height, 109.5, [...]
--- OUTSIDE RECORDS SUMMARY | 2023-07-28 03:55 | XMS_ITS | Continuity of Care Document ---
Author Name Unknown Organization [facility] Adult Address [address] [place] [address]- Care Team Providers Care Health And Wellness Instructor Name Role Phone Alanis Wilson MD Primary Care Physician [phone] [place] [facility] [place] 05/30/20 - 06/29/[address] [facility] Adult [address] [place] [address]- Allergies, Adverse Reactions, Alerts Substance Reaction Severity [...] 30 tablet, 0 Refills, Maintenance,11/24/19 12:57:00 EDT, [place], [place] -, 162.5, cm, 10/07/19 14:20:00 EST, [...] 08/10/19 13:50:44 EST, Route to Pharmacy Electronically, [place], [place] -, 162.5, cm, 04/07/19 11:09:30 EDT, Height, 109.5, kg, 10/20/18... Start Date: 08/10/19 Status: Ordered ibuprofen 400 mg oral tablet 400 mg, 1, tablet, By Mouth, 2 times a day, PRN, # 90 tablet, Refills 1, Tot. Refills 1, Maintenance, Pain , Moderate, 02/09/20 11:30:00 EDT, Route to Pharmacy Electronically, [place], [place] -, 162.5, cm, 01/24/20 9:06:00 EDT, Joy... Start Date: 02/09/20 Status: Ordered MetFORMIN (Eqv-Glucophage XR) 500 mg oral tablet, extended release 1 tablet = 500 mg, By Mouth, Daily, # 90 tablet, 3 Refills, Maintenance, 01/26/20 22:25:00 EDT, [place], [place] -, 162.5, cm, 01/24/20 9:06:00 EDT, [...] Refills, Maintenance, 01/26/20 22:22:00 EDT, ER Tablet, [place], [place] -, 162.5, cm, 01/24/20 9:06:00 EDT, Height, 109.5, kg, 10/20/18 21:30:00 EST, Dry Weight Start Date: 01/26/20 Status: Ordered omeprazole 20 mg oral enteric coated capsule 1 capsule = 20 mg, By Mouth, Daily, # 30 capsule, 2 Refills, Maintenance, 05/04/20 9:38:00 EDT, EC Capsule, [facility] #[id number], 162.5, cm, 04/27/20 11:13:00 EDT, Height, 109.5, kg, 10/20/18 21:30:00 EST, Dry Weight Start Date: 05/04/20 Status: Ordered sertraline 100 mg oral tablet 1 tablet = 100 mg, By Mouth, Daily, # 7 tablet, 0 Refills, Maintenance, 04/07/20 13:06:00 EDT, [facility] #[id number], 162.5, cm, 04/07/20 10:29:00 EDT, Height, 109.5, kg, 10/20/18 21:30:00 EST,Dry Weight Start Date: 04/07/20 Stop Date: 04/14/20 Status: Ordered sertraline 100 mg oral tablet 1.5 tablet = 150 mg, By Mouth, Daily, # 45 tablet, 0 Refills, Maintenance, 04/14/20 13:10:00 EDT, [facility] #[id number], 162.5, cm, 04/07/20 10:29:00 EDT, Height, 109.5, [...]
--- OUTSIDE RECORDS SUMMARY | 2023-07-28 03:55 | XMS_ITS | Continuity of Care Document ---
Author Name Unknown Organization [facility] Address [address] [place] [address]- Care Team Providers Care Financial Analyst Accountant Name Role Phone Katie NOVOA, Alanis Primary Care Physician [facility] Date(s): 06/18/21 - 07/18/21 [facility] [address] [place], [place] [address] Allergies, Adverse Reactions, Alerts Substance Reaction Severity [...] 02/26/21 11:05:00 EDT, Route to Pharmacy Electronically, [facility], 162.5, cm, 01/15/21 9:10:00 EDT, Height [...] 3 Refills, Maintenance, 09/13/20 13:21:00 EST, Tablet, [facility] - [place], [place] - [id number], 162.5, cm, 09/01/20 7:39:00 EST, Height, 109.5, [...]
--- OUTSIDE RECORDS SUMMARY | 2023-07-28 03:55 | XMS_ITS | Continuity of Care Document ---
Author Name Unknown Organization [facility] Adult Address [address] [place] [address]- Care Team Providers Care Communication Spec Name Role Phone Alanis Wilson MD Primary Care Physician [phone] Encounter [facility] [place] Date(s): 05/03/21 - 06/02/21 [facility] Adult [address] [place] [address]- Attending Physician: Danish Harris Admitting Physician: AdmDanish hudson Referring Physician: Admtr, Danish Allergies, Adverse Reactions, [...] 15 tablet, 0 Refills, Maintenance,05/04/21 9:36:00 EDT, [place], [place] - [id number], 162.5, cm, 05/03/21 13:05:00 EDT, Height Start Date: 05/04/21 Status: Ordered ibuprofen 400 mg oral tablet 1, tablet, By Mouth, 2 times a day, PRN, # 60 tablet, Refills 1, Tot. Refills 0, Acute, NEEDED FOR MODERATE PAIN, 02/26/21 11:05:00 EDT, Route to Pharmacy Electronically, [facility], 162.5, cm, 01/15/21 9:10:00 EDT, Height Start [...] 3 Refills, Maintenance, 09/13/20 13:21:00 EST, Tablet, [place], [place] - [id number], 162.5, cm, 09/01/20 7:39:00 EST, Height, 109.5, [...]
--- OUTSIDE RECORDS SUMMARY | 2023-07-28 03:56 | XMS_ITS | Continuity of Care Document ---
Author Name Unknown Organization [facility] Adult Address [address] [place] [address]- Care Team Providers Care Software Packager Name Role Phone Not on Staff, PCP Primary Care Physician Unavail able Encounter [facility] Date(s): 11/06/21 - 12/06/21 [facility] Adult [address] [place] [id number] Allergies, Adverse Reactions, Alerts Substance Reaction Severity [...] 02/26/21 11:05:00 EDT, Route to Pharmacy Electronically, [facility], 162.5, cm, 01/15/21 9:10:00 EDT, [...] 3 Refills, Maintenance, 09/13/20 13:21:00 EST, Tablet, [facility] - [place], [place] - [id number], 162.5, cm, 09/01/20 7:39:00 EST, Height, 109.5, [...]
--- OUTSIDE RECORDS SUMMARY | 2023-07-28 03:56 | XMS_ITS | Continuity of Care Document ---
Author Name Unknown Organization [facility] Adult Address [address] [place] [address]- Care Team Providers Care Bingo Usher Name Role Phone Katie NOVOA, Alanis Primary Care Physician Encounter [facility] [place] Date(s): 02/01/21 - 03/03/21 [facility] Adult [address] [place] [id number]- Allergies, Adverse Reactions, Alerts Substance Reaction Severity [...] 30 tablet, 0 Refills, Maintenance,08/24/20 17:36:00 EST, [facility][id number], 162.5, cm, 08/01/20 15:54:00 EST, Height, 109.5, kg, 10/20/18 21:30:00 EST, Dry Weight Start Date: 08/24/20 Status: Ordered ibuprofen 400 mg oral tablet 1, tablet, By Mouth, 2 times a day, PRN, # 60 tablet, Refills 1, Tot. Refills 0, Acute, NEEDED FOR MODERATE PAIN, 02/26/21 11:05:00 EDT, Route to Pharmacy Electronically, [facility], 162.5, cm, 01/15/21 9:10:00 EDT, Height Start Date: 02/26/21 Status: Ordered omeprazole 20 mg oral enteric coated capsule 1 capsule, By Mouth, Daily, # 30 capsule, 2 Refills, Maintenance, 02/26/21 11:05:00 EDT, [facility], 162.5, cm, 01/15/21 9:10:00 EDT, Height Start Date: 02/26/21 Status: Ordered ZyrTEC 10 mg oral tablet 1 tablet = 10 mg, By Mouth, Daily, # 90 tablet, 3 Refills, Maintenance, 09/13/20 13:21:00 EST, Tablet, [facility] [place], [place] - [id number], 162.5, cm, 09/01/20 7:39:00 EST, Height, 109.5, [...]
--- OUTSIDE RECORDS SUMMARY | 2023-07-28 03:56 | XMS_ITS | Continuity of Care Document ---
Author Name Unknown Organization [facility] ter Address [address] [place] [id number]- Care Team Providers Care Beet Topper Name Role Phone Franco Beard MD Primary Care Physician [place] [facility] [place] - 12/27/[address] [address]- Discharge Disposition: A-D/C Home Attending Physician: Arthur Blake DO Admitting Physician: Arthur Blake DO Referring Physician: Not on Staff, Referring MD [...] a day, PRN, # 60 tablet, Refills 0, NEEDED FOR MODERATE PAIN, [facility] Electronically, [facility], 162, cm, 10/02/21 11:18:00 EST, Height Start Date: 02/01/22 Status: Ordered LORazepam 0.5 mg oral tablet 1 tablet = 0.5 mg, By Mouth, Daily, PRN as needed for anxiety, # 15 tablet, 0 Refills, Maintenance,02/11/22 9:03:00 EDT, [place], [place] - [id number], 162, cm, 10/02/21 11:18:00 EST, Height Start Date: 02/11/22 Status: Ordered pantoprazole 40 mg oral delayed release tablet 1 tablet, By Mouth, Daily, # 30 tablet, 0 Refills, 162, cm, 10/02/21 11:18:00 EST, Height Start Date: 02/01/22 Status: Ordered propranolol 10 mg oral tablet 1, tablet, By Mouth, 2 times a day, PRN, # 60 tablet, Refills 0, Maintenance, NEEDED FOR PALPITATIONS, 10/24/22 13:13:00 EST, Route to Pharmacy Electronically, [id number], 162, cm, 09/25/22 8:57:00 EST, Height Start Date: 10/24/22 Status: Ordered sertraline 25 mg oral tablet 1 tablet = 25 mg, By Mouth, Daily, # 30 tablet, 2 Refills, Maintenance, 12/27/21 12:18:00 EDT, Tablet, [facility] #[id number], 162, cm, 10/02/21 11:18:00 EST, Height Start Date: 12/27/21 Status: Ordered ZyrTEC 10 mg oral tablet 1 tablet = 10 mg, By Mouth, Daily, # 90 tablet, 3 Refills, Maintenance, 09/13/20 13:21:00 EST, Tablet, [facility] [place], [place] - [id number], 162.5, cm, 09/01/20 7:39:00 EST, Height, 109.5, kg, 10/20/18 21:30:00 EST, Dry Weight Start Date: 09/13/20 Stop Date: 09/08/21 Status: Ordered Problem List Condition Confirmation Course Effective Dates Status Health St [facility] Informant Bipolar disorder Confirmed Active Dizziness Confirmed Active Generalized anxiety disorder with panic attacks Confirmed Active Menorrhagia Confirmed Active Delayed menses Confirmed Active Migraine headache Confirmed Active PCOS - Polycystic ovarian syndrome Confirmed 05/02/09 Active Prediabetes Confirmed Active Premenstrual dysphoric syndrome Confirmed Active Elevated serum creatinine Confirmed Active Severe obesity (BMI 35.0-39.9) with comorbidity Confirmed Active Results Radiology Reports * Exam Date Time Procedure Performing Provider Status 12/26/22 8:27 PM Chest 2 Views Frontal and Lat Kris Hernandez; Madan (Verified) Notes: (Chest 2 Views Frontal and Lat) Reason For Exam: Chest Pain;Other: RESULT: Chest 2 Views Frontal and Lat Chest 2 Views Frontal and Lat Hx of Present Illness: left sided chest discomfort radiaiting to upper back started 30 mins ago, ongoing frequently since 3 weeks, dizziness lightheadedness. left side sore to touch- at times chest feels lumpy- symtpoms will subsided in a couple hours. takes propanolol prn; Reason: Other:; Chest Sana n; Clinical Question(s): Other: COMPARISON: x-ray 10/20/2018. FINDINGS: LINES AND TUBES: None. LUNGS AND PLEURA: Clear lungs. Normal pulmonary vascularity. No pleural effusion. No pneumothorax. HEART, MEDIASTINUM AND ISABELLA: Heart is normal in size. Normal mediastinal and hilar contour. BONES AND SOFT TISSUES: No acute abnormality. IMPRESSION: No radiographic evidence of acute cardiopulmonary pathology. WSN: [id number] Ordering Physician: Maged Barton MD Dictated By: Pasha Santiago MD Dictated Date/Time: 12/26/22 8:37 pm Reviewed By: Pasha Santiago MD Signed By: Pasha Santiago MD Signed Date/Time: 12/26/22 8:37 pm Transcribed By: RORY Transcribed Date/Time: 12/26/22 8:33 pm Vital Signs Most recent to oldest [Reference Range]: 1 2 3 Oxygen Saturation [94-100 %] 98 % (12/26/22 11:13 PM) 100 % (12/26/22 9:08 PM) 100 % (12/26/22 7:29 PM) Pulse Rate [55-90 bpm] 56 bpm (12/26/22 11:13 PM) 74 bpm (12/26/22 9:08 PM) 66 bpm (12/26/22 7:29 PM) Blood Pressure [90-138/55-84 mm Hg] 117/71mm Hg (12/26/22 11:13 PM) 130/82mm Hg (12/26/22 9:08 PM) 143/83mm Hg *H* (12/26/22 7:29 PM) Respiratory Rate [16-30 br/min] 20 br/min (12/26/22 9:08 PM) 20 br/min (12/26/22 7:29 PM) Temperature [96.8-100.4 DegF] 97.7 DegF (12/26/22 11:13 PM) 97.5 DegF (12/26/22 7:29 PM) Mode of Delivery (Oxygen) Room air (12/26/22 11:13 PM) Room air (12/26/22 9:08 PM) Room air (12/26/22 7:29 PM) Blood pressure sites Arm, right (12/26/22 11:13 PM) Arm, left (12/26/22 9:08 PM) Arm, left (12/26/22 7:29 PM) Temperature Route Oral (12/26/22 11:13 PM) Oral (12/26/22 7:29 PM) Social History Social History Type Response Smoking Status Former smoker, quit more than 30 days ago; Other: Quit 2020; entered on: 09/19/22 Sex EKG study * Event Display: EKG Authored Date: [id number] Note * Arthur Blake DO: SIGN, VERIFY, PERFORM Event Display: Patient Education Handout Authored Date: [id number] * Arthur Blake DO: PERFORM Event Display: Patient Education Leaflets Authored Date: [id number] Heart Palpitations ?? [id number] Heart Palpitations Palpitations are the feeling that your heart is beating hard, fast, or irregular. Some describe it as pounding, flip-flopping in the chest, or skipped beats. Palpitations may occur in someone with heart disease. But they can also occur in a healthy person. Heart-related causes: ??? Heart rhythm problem (arrhythmia) ??? Heart valve disease ??? Disease of the heart muscle (cardiomyopathy) ??? Coronary artery disease ??? High blood pressure [facility]-arqpy-bagvejr causes: ??? Certain medicines such as asthma inhalers and decongestants ??? Some herbal supplements, energydrinks and pills, and weight loss pills ??? Illegal stimulant drugs such as cocaine, crank, methamphetamine, PCP, and ecstasy ??? Caffeine, alcohol, and tobacco ??? Health conditions such as thyroid disease, anemia, anxiety, and panic disorder Sometimes the cause can't be found. Home care Follow these home care tips: ??? Don't use too much caffeine, alcohol, or tobacco, or any stimulantdrugs. ??? Tell your doctor about any prescription or xomc-bqg-aulnxik or herbal medicines you take. ?? Follow-up care ??? Follow up with your doctor, or as advised. ?? Call 911 This is the fastest and safest way to get to the emergency department. The paramedics can also start treatment on the way to the hospital, if needed. Don't wait until your symptoms are severe to call 911. These are reasons to call 911: ??? Chest pain ??? Shortness of breath ??? Feeling lightheaded, faint, or dizzy, or losing consciousness ??? Veryirregular heartbeat ??? Rapid heartbeat that makes you uncomfortable ??? Slower than usual heart rate along with symptoms ??? Chest pain with weakness, dizziness,??heavy sweating, nausea, or vomiting??? Extreme drowsiness, confusion, or weakness ??? Weakness of an arm or leg, or on one side of theface ??? Trouble with speech or vision ?? When to seek medical advice Call your healthcare provider right away if you have palpitations that last longer than normal, or are different from your past palpitations. ?? Last Reviewed Date: 2021 ?? [id number] [employer]. All rights reserved. This information is not intended as a substitute for professional medical care. Always follow your healthcare professional's instructions. ?? Laboratory * [facility] , [facility] S: TRANSCRIBE Pasha Santiago MD: VERIFY Event Display: Result: Authored Date: Chest 2 Views Frontal and Lat Hx of Present Illness: left sided chest discomfort radiaiting to upper back started 30 mins ago, ongoing frequently since 3 weeks, dizziness lightheadedness. left side sore to touch- at times chest feels lumpy- symtpoms will subsided in a couple hours. takes propanolol prn; Reason: Other:; Chest Sana n; Clinical Question(s): Other: COMPARISON: x-ray 10/20/2018. FINDINGS: LINES AND TUBES: None. LUNGS AND PLEURA: Clear lungs. Normal pulmonary vascularity. No pleural effusion. No pneumothorax. HEART, MEDIASTINUM AND ISABELLA: Heart is normal in size. Normal mediastinal and hilar contour. BONES AND SOFT TISSUES: No acute abnormality. IMPRESSION: No radiographic evidence of acute cardiopulmonary pathology. WSN: [id number] Ordering Physician: Maged Barton MD Dictated By: Pasha Santiago MD Dictated Date/Time: 12/26/22 8:37 pm Reviewed By: Pasha Santiago MD Signed By: Pasha Santiago MD Signed Date/Time: 12/26/22 8:37 pm Transcribed By: RORY Transcribed Date/Time: 12/26/22 8:33 pm Patient Care team information Care Team Personnel Name: Svetlana Akhtar MD Position: [facility] MACHINE TECH Member Role: Lifetime MACHINE TECH Physician Address: Address: [address] [place] [address] [address]- Name: Franco Beard MD Position: [facility] Primary Care Physician Member Role: PCP Address: Address: [address] [place] [address], [address] [place] [address]- Name: Arthur Blake DO Position: [facility] ED Medicine MD Member Role: ED Attending Physician Address: Address: [address] [place] [address] [place] [address]- Care Team Related Persons Name: SENG ARSH Address: [place] [address] Name: TAMERA SPENCER Address: home [address] [place] [address] Name: MELISSA EDWARDS Address: home [address] [place] [id number]
--- OUTSIDE RECORDS SUMMARY | 2023-07-28 03:56 | XMS_ITS | Continuity of Care Document ---
Author Name Unknown Organization [facility] Adult Address [address] [place] [address]- Care Team Providers Care Top Polisher Name Role Phone Alanis Wilson MD Primary Care Physician [place] [facility] [place]20 [facility] [address] [place] [address]- [facility] Allergies, Adverse Reactions, Alerts Substance Reaction [...] 30 tablet, 0 Refills, Maintenance,11/24/19 12:57:00 EDT, [place], [place] -, 162.5, cm, 10/07/19 14:20:00 EST, [...] 08/10/19 13:50:44 EST, Route to Pharmacy Electronically, [place], [place] -, 162.5, cm, 04/07/19 11:09:30 EDT, Height, 109.5, kg, 10/20/18... Start Date: 08/10/19 Status: Ordered ibuprofen 400 mg oral tablet 400 mg, 1, tablet, By Mouth, 2 times a day, PRN, # 90 tablet, Refills 1, Tot. Refills 1, Maintenance, Pain , Moderate, 02/09/20 11:30:00 EDT, Route to Pharmacy Electronically, [place], [place] -, 162.5, cm, 01/24/20 9:06:00 EDT, [facility]... Start Date: 02/09/20 Status: Ordered MetFORMIN (Eqv-Glucophage XR) 500 mg oral tablet, extended release 1 tablet = 500 mg, By Mouth, Daily, # 90 tablet, 3 Refills, Maintenance, 01/26/20 22:25:00 EDT, [place], [place] -, 162.5, cm, 01/24/20 9:06:00 EDT, [...] Refills, Maintenance, 01/26/20 22:22:00 EDT, ER Tablet, [place], [place] -, 162.5, cm, 01/24/20 9:06:00 EDT, Height, 109.5, kg, 10/20/18 21:30:00 EST, Dry Weight Start Date: 01/26/20 Status: Ordered omeprazole 20 mg oral enteric coated capsule 1 capsule = 20 mg, By Mouth, Daily, # 30 capsule, 2 Refills, Maintenance, 05/04/20 9:38:00 EDT, EC Capsule, [facility] #[id number], 162.5, cm, 04/27/20 11:13:00 EDT, Height, 109.5, kg, 10/20/18 21:30:00 EST, Dry Weight Start Date: 05/04/20 Status: Ordered sertraline 100 mg oral tablet 1 tablet = 100 mg, By Mouth, Daily, # 7 tablet, 0 Refills, Maintenance, 04/07/20 13:06:00 EDT, [facility] #[id number], 162.5, cm, 04/07/20 10:29:00 EDT, Height, 109.5, kg, 10/20/18 21:30:00 EST,Dry Weight Start Date: 04/07/20 Stop Date: 04/14/20 Status: Ordered sertraline 100 mg oral tablet 1.5 tablet = 150 mg, By Mouth, Daily, # 45 tablet, 0 Refills, Maintenance, 04/14/20 13:10:00 EDT, [facility] #[id number], 162.5, cm, 04/07/20 10:29:00 EDT, Height, 109.5, [...]
--- OUTSIDE RECORDS SUMMARY | 2023-07-28 03:56 | XMS_ITS | Continuity of Care Document ---
Author Name Unknown Organization [facility] Adult Address [address] [place] [address]- Care Team Providers Care Active Directory Architect Name Role Phone Katie NOVOA, Alanis Primary Care Physician Encounter [facility] [place] Date(s): 06/06/21 - 07/06/[address] [address]- Allergies, Adverse Reactions, Alerts Substance Reaction Severity [...] Route to Pharmacy Electronically, [facility], 162.5, cm, 01/15/21 9:10:00 [...] 3 Refills, Maintenance, 09/13/20 13:21:00 EST, Tablet, [facility] [place], [place] - [id number], 162.5, cm, 09/01/20 7:39:00 EST, Height, 109.5, [...]
--- OUTSIDE RECORDS SUMMARY | 2023-07-28 03:56 | XMS_ITS | Continuity of Care Document ---
Author Name Unknown Organization [facility] ter Address [address] [place] [address]- Care Team Providers Care Food Service Substitute Name Role Phone Franco Beard MD Primary Care Physician [phone] Encounter [facility] Date(s): 06/12/23 - 06/12/[address] [address]- Discharge Disposition: A-D/C Home Attending Physician: José Miguel Hagan MD Admitting Physician: José Miguel Hagan MD Referring Physician: Not on Staff, Referring MD Allergies, Adverse Reactions, Alerts Substance Reaction Severity Status vancomycin pruritus Active morphine Active RisperDAL Active Immunizations Given and Recorded [...] virus vaccine, inactivated 3 08/21/15 Re corded SARS-CoV-2 (COVID-19) mRNA BNT-162b2 vac 04/15/21 Recorded SARS-CoV-2 (COVID-19) mRNA BNT-162b2 vac 03/25/21 Recorded Influenza Virus Vaccine (oldterm) 06/08/20 Recorde d tetanus/diphtheria/pertussis, acel(Tdap) 09/03/17 Given hepatitis B adult vaccine 11/22/11 Recorded Hepatitis A Adult Vaccine 11/22/11 Recorded Human Papillomavirus Vaccine 07/27/08 Recorded tetanus-diphtheria toxoids (Td) 4 08/04/07 Given tetanus-diphtheria toxoids (Td) 5 07/28/98 Given hepatitis B pediatric vaccine 6 02/16/03 Given hepatitis B pediatric vaccine 7 07/22/00 Given hepatitis B pediatric vaccine 8 07/28/98 Given 1Admin Note: work 2Admin Note: pérez cuevas 3Result Comment: [09/18/2015] work 4Admin Note: VIS 5Admin Note: Given by nurse 6Admin Note: given by another practices. 7Admin Note: given by another practices. 8Admin Note: given by another practices. Medications ibuprofen 400 mg oral tablet 1, tablet, By Mouth, 2 times a day, PRN, # 60 tablet, Refills 0, NEEDED FOR MODERATE PAIN, [facility], [facility], 162, cm, 10/02/21 11:18:00 EST, Height Start Date: 02/01/22 Status: Ordered LORazepam 0.5 mg oral tablet 1 tablet = 0.5 mg, By Mouth, Daily, PRN as needed for anxiety, # 15 tablet, 0 Refills, Maintenance,02/11/22 9:03:00 EDT, [place], [place] - [id number], 162, cm, 10/02/21 11:18:00 EST, Height Start [...] 10/24/22 13:13:00 EST, Route to Pharmacy Electronically, [id number], 162, cm, 09/25/22 8:57:00 EST, Height Start Date: 10/24/22 Status: Ordered sertraline 25 mg oral tablet 1 tablet = 25 mg, By Mouth, Daily, # 30 tablet, 2 Refills, Maintenance, 12/27/21 12:18:00 EDT, Tablet, [facility] #[id number], 162, cm, 10/02/21 11:18:00 EST, Height Start Date: 12/27/21 Status: Ordered ZyrTEC 10 mg oral tablet 1 tablet = 10 mg, By Mouth, Daily, # 90 tablet, 3 Refills, Maintenance, 09/13/20 13:21:00 EST, Tablet, [facility] [place] [place] - [id number], 162.5, cm, 09/01/20 7:39:00 EST, Height, 109.5, [...] Exam Date Time Procedure Performing Provider Status 06/12/23 4:[address] Head/Brain W/O Contrast Kalyani Garcia; Auth (Verified) Notes: (CT Head/Brain W/O Contrast) Reason For Exam: Headache(s) RESULT: CT Head/Brain W/O Contrast CT Head/Brain W/O Contrast INDICATION: Hx of Present Illness: Pt. reports dizziness since 1030 am today.; Reason: Headache(s);Clinical Question(s): Subarachnoid Hemorrhage; Order Comment: TECHNIQUE: Noncontrast head CT using axial technique and reconstructed in axial and coronal planes.Iterative reconstruction techniques are used to optimize dose and image quality. CTDIvol Head: 48.10 mGy, DLP Head: 773 mGy*cm. COMPARISON: None. FINDINGS: Patient Registration Manager view findings, lines and tubes: None. BRAIN AND EXTRA-AXIAL SPACES: No parenchymal hemorrhage, midline shift, or mass effect. Lin-white matter differentiation is wellpreserved. No acute infarct. Negative insular ribbon and hyperdense vessel signs. Ventricles, sulci, and basilar cisterns are normal. No white matter lesions. No subarachnoid hemorrhage. No subdural or epidural collection. CALVARIUM, SKULL BASE, AND SOFT TISSUES: No fractures or suspicious bony lesions. The paranasal sinuses and mastoid air cells are clear. Visualized orbits and globes are intact. The extracranial soft tissues are unremarkable. IMPRESSION: No acute intracranial pathology. WSN: [id number] Ordering Physician: José Miguel Hagan Dictated By: Pasha Holland MD Dictated Date/Time: 06/12/23 5:01 pm Reviewed By: Pasha Holland MD Signed By: Pasha Holland MD Signed Date/Time: 06/12/23 5:01 pm Transcribed By: RORY Transcribed Date/Time: 06/12/23 4:59 pm * Exam Date Time Procedure Performing Provider Status 06/12/23 12:53 PM Chest 2 Views Frontal and Lat Brant Irwin; Auth (Verified) Notes: (Chest 2 Views Frontal and Lat) Reason For Exam: Chest Pain;Other: RESULT: Chest 2 Views Frontal and Lat Chest 2 Views Frontal and Lat Hx of Present Illness: Pt. reports dizziness since 1030 am today.; Reason: Other:; Chest Pain; Clinical Question(s): Other: COMPARISON: Multiple prior chest radiographs with the most recent dated 12/26/2022. FINDINGS: LINES AND TUBES: None. LUNGS AND PLEURA: Clear lungs. Normal pulmonary vascularity. No pleural effusion. No pneumothorax. HEART, MEDIASTINUM AND ISABELLA: Heart is normal in size. Normal mediastinal and hilar contour. BONES AND SOFT TISSUES: No acute abnormality. IMPRESSION: No acute abnormality. WSN: [id number] Ordering Physician: Meek Mcgill Dictated By: Mohsen Junior MD, V Dictated Date/Time: 06/12/23 12:58 p Reviewed By: Mohsen Junior MD, V Signed By: Mohsen Junior MD, V Signed Date/Time: 06/12/23 12:58 pm Transcribed By: RORY Transcribed Date/Time: 06/12/23 12:57 pm Vital Signs Most recent to oldest [Reference Range]: 1 2 3 Height 165 cm (06/12/23 11:58 AM) 165 cm (06/12/23 11:53 AM) Weight 85 kg (06/12/23 11:58 AM) Oxygen Saturation [94-100 %] 98 % (06/12/23 4:44 PM) 99 % (06/12/23 2:22 PM) 100 % (06/12/23 12:52 PM) Pulse Rate [55-90 bpm] 88 bpm (06/12/23 4:44 PM) 97 bpm *H* (06/12/23 2:22 PM) 87 bpm (06/12/23 12:52 PM) Blood Pressure [90-138/55-84 mm Hg] 122/82mm Hg (06/12/23 4:44 PM) 123/76mm Hg (06/12/23 2:22 PM) 126/81mm Hg (06/12/23 12:52 PM) Respiratory Rate [16-30 br/min] 17 br/min (06/12/23 4:44 PM) 18 br/min (06/12/23 2:22 PM) 18 br/min (06/12/23 12:52 PM) Temperature [96.8-100.4 DegF] 98.2 DegF (06/12/23 4:44 PM) 97.7 DegF (06/12/23 2:22 PM) 97.7 DegF (06/12/23 12:52 PM) Mode of Delivery (Oxygen) Room air (06/12/23 4:44 PM) Room air (06/12/23 2:22 PM) Room air (06/12/23 12:52 PM) Blood pressure sites Arm, right (06/12/23 4:44 PM) Arm, right (06/12/23 2:22 PM) Arm, right (06/12/23 12:52 PM) Temperature Route Oral (06/12/23 4:44 PM) Oral (06/12/23 2:22 PM) Oral (06/12/23 12:52 PM) Dry Weight 85 kg (06/12/23 11:58 AM) 85 kg (06/12/23 11:53 AM) Social History Social History Type Response Smoking Status Former smoker, quit more than 30 days ago; Other: Quit 2020; entered on: 09/19/22 Sex EKG study * Event Display: ECG 12-Lead Authored Date: Please click on pdf link to open report * Event Display: ECG 12-Lead Authored Date: Ventricular Rate: 96 BPM Atrial Rate: 96 BPM P-R Interval: 156 ms QRS Duration: 80 ms Q-T Interval: 342 ms QTC Calculation(Bazett): 432 ms P [place]: 54 degrees R [place]: 50 degrees T [place]: 63 degrees Normal sinus rhythm Probably normal ekg When compared with ECG of 26-DEC-2022 19:49, No significant change was found Confirmed by DIANNE YBARRA ([id number]) on 06/12/2023 3:07:48 PM [place]: DIANNE YBARRA Note * Jessica Tenorio: PERFORM Event Display: Patient Education Leaflets Authored Date: [id number] Headache, Unspecified ?? [id number] Headache, Unspecified A number of things can cause headaches. The cause of your headache isn???t clear. But it doesn???t seem to be a sign of any serious illness. Headache affects almost everyone at some time. It's the most common reason people miss days from work or school. A physical and nervous system exam can help rule out any serious causes of headache. Sometimes you may need more testing. This could include blood work or imaging tests of the head, such as a CAT scan or MRI. You could have a tension headache or a migraine headache. Stress can cause a tension headache. This can happen if you tense the muscles of your shoulders, neck, and scalp without knowing it. If this stress lasts long enough, you may develop a tension headache. It's not clear why migraines occur, but certain things called triggers can raise the risk of havinga migraine attack. Migraine triggers may include emotional stress or depression, or by hormone changes during the menstrual cycle. Other triggers include control pills and other medicines, alcohol or caffeine, foods with tyramine, such as aged cheese or wine, eyestrain, weather changes, missed meals, and lack of sleep or oversleeping. Other causes of headache include: ??? Viral illness with high fever ??? Head injury with concussion ??? Sinus, ear, or throat infection ??? Dental pain and jaw joint (TMJ) pain More serious but less common causes of headache include stroke, brain hemorrhage, brain tumor, meningitis, and encephalitis. Home care Follow these tips when taking care of yourself at home: ??? Don???t drive yourself home if you weregiven pain medicine for your headache. Instead, have someone else drive you home. Try to sleep whenyou get home. You should feel much better when you wake up. ??? Apply heat to the back of your neckto ease a neck muscle spasm. Take care of a migraine headache by putting an ice pack on your forehead or at the base of your skull. ??? If you have nausea or vomiting, eat a light diet until your headache eases. ??? If you have a migraine headache, use sunglasses when in the daylight or around bright indoor lighting until your symptoms get better. Bright glaring light can make this type of headache worse. ?? Follow-up care Follow up with your healthcare provider, or as advised. Talk with your provider if you have frequent headaches. They can help figure out a treatment plan. By knowing the earliest signs of headache, and starting treatment right away, you may be able to stop the pain yourself. ?? When to get medical advice Call your healthcare provider right away??if any of the following occur: ??? Your head pain suddenly gets worse after sexual intercourse or strenuous activity ??? Your head pain doesn???t get better within 24 hours ??? You have new symptoms ??? You aren???t able to keep liquids down (repeated vomiting) ??? Fever of 100.4??F (38??C) or higher, or as directed by your healthcare provider ??? Stiff neck ??? Extreme drowsiness, confusion, or fainting ??? Dizziness or dizziness with spinning sensation (vertigo) ??? Weakness in an arm or leg or one side of your face ??? You have trouble talking or seeing ?? Last Reviewed Date: 2022 ?? [id number] [employer]. All rights reserved. This information is not intended as a substitute for professional medical care. Always follow your healthcare professional's instructions. ?? Patient Care team information Care Team Personnel Name: Svetlana Akhtar MD Position: [facility] WINK CUTTER OPERATOR MD Member Role: Lifetime WINK CUTTER OPERATOR Physician Address: Address: [address] [place] [address] [facility], [place] [address]- Name: Franco Beard MD Position: [facility] Physician - Primary Care Member Role: PCP Address: Address: [address] [place] [address], [address] [place] [address]- Name: Jessica Tenorio Position: [facility] Associate Professional Member Role: ED Physician Pants Maker Address: Address: [address] [place] [address]- Name: José Miguel Hagan MD R Position: [facility] ED Medicine MD Member Role: Admitting Physician Address: Address: [address] [place] [address] Name: Nova Contreras RN Position: [facility] ED RN W/OE and Tasks Member Role: Patient Care Provider Name: Sharona Roper Position: [facility] ED TA [facility] Care Team Related Persons Name: ELLSWORTH, ARSH Address: [place] [address] Name: TAMERA SPENCER Address: home [address] [place] [address] Name: MELISSA EDWARDS Address: home [address] [place] [id number]
--- OUTSIDE RECORDS SUMMARY | 2023-07-28 03:56 | XMS_ITS | Continuity of Care Document ---
Author Name Unknown Organization [facility] Adult Address [address] [place] [address]- Care Team Providers Care Medical Microbiologist Name Role Phone Alanis Wilson MD Primary Care Physician [phone] [place] [facility] [place] 04/[place]/20 [facility] Adult [address] [place] [address]- [facility] Allergies, Adverse Reactions, Alerts Substance Reaction Severity [...] 30 tablet, 0 Refills, Maintenance,11/24/19 12:57:00 EDT, [place], [place] -, 162.5, cm, 10/07/19 14:20:00 EST, [...] 08/10/19 13:50:44 EST, Route to Pharmacy Electronically, [place], [place] -, 162.5, cm, 04/07/19 11:09:30 EDT, Height, 109.5, kg, 10/20/18... Start Date: 08/10/19 Status: Ordered ibuprofen 400 mg oral tablet 400 mg, 1, tablet, By Mouth, 2 times a day, PRN, # 90 tablet, Refills 1, Tot. Refills 1, Maintenance, Pain , Moderate, 02/09/20 11:30:00 EDT, Route to Pharmacy Electronically, [place], [place] -, 162.5, cm, 01/24/20 9:06:00 EDT, [facility]... Start Date: 02/09/20 Status: Ordered MetFORMIN (Eqv-Glucophage XR) 500 mg oral tablet, extended release 1 tablet = 500 mg, By Mouth, Daily, # 90 tablet, 3 Refills, Maintenance, 01/26/20 22:25:00 EDT, [place], [place] -, 162.5, cm, 01/24/20 9:06:00 EDT, [...] Refills, Maintenance, 01/26/20 22:22:00 EDT, ER Tablet, [place], [place] -, 162.5, cm, 01/24/20 9:06:00 EDT, Height, 109.5, kg, 10/20/18 21:30:00 EST, Dry Weight Start Date: 01/26/20 Status: Ordered omeprazole 20 mg oral enteric coated capsule 1 capsule = 20 mg, By Mouth, Daily, # 30 capsule, 2 Refills, Maintenance, 01/21/20 11:11:00 EDT, [facility], [place], [place] -, 162.5, cm, 01/13/20 11:04:00 EDT, Height, 109.5, kg, 10/20/18 21:30:00 EST, Dry Weight Start Date: 01/21/20 Status: Ordered sertraline 100 mg oral tablet 1 tablet = 100 mg, By Mouth, Daily, # 7 tablet, 0 Refills, Maintenance, 04/07/20 13:06:00 EDT, [facility] #[id number], 162.5, cm, 04/07/20 10:29:00 EDT, Height, 109.5, kg, 10/20/18 21:30:00 EST,Dry Weight Start Date: 04/07/20 Stop Date: 04/14/20 Status: Ordered sertraline 100 mg oral tablet 1.5 tablet = 150 mg, By Mouth, Daily, # 45 tablet, 0 Refills, Maintenance, 04/14/20 13:10:00 EDT, [facility] #[id number], 162.5, cm, 04/07/20 10:29:00 EDT, Height, 109.5, [...]
--- OUTSIDE RECORDS SUMMARY | 2023-07-28 03:56 | XMS_ITS | Continuity of Care Document ---
Author Name Unknown Organization [facility] Adult Address [address] [place] [address]- Care Team Providers Care Tempering Oven Operator Name Role Phone Alanis Wilson MD Primary Care Physician [phone] Encounter [facility] [place] Date(s): 04/27/20 - 05/04/20 [facility] Adult [address] [place] [address]- [facility] Encounter Diagnosis Bipolar disorder, curr episode depressed, severe, w/psychotic features(Discharge Diagnosis) - 04/27/20 Attending Physician: Alanis Wilson MD Allergies, Adverse [...] 30 tablet, 0 Refills, Maintenance,11/24/19 12:57:00 EDT, [place], [place] -, 162.5, cm, 10/07/19 14:20:00 EST, [...] 08/10/19 13:50:44 EST, Route to Pharmacy Electronically, [place], [place] -, 162.5, cm, 04/07/19 11:09:30 EDT, Height, 109.5, kg, 10/20/18... Start Date: 08/10/19 Status: Ordered ibuprofen 400 mg oral tablet 400 mg, 1, tablet, By Mouth, 2 times a day, PRN, # 90 tablet, Refills 1, Tot. Refills 1, Maintenance, Pain , Moderate, 02/09/20 11:30:00 EDT, Route to Pharmacy Electronically, [place], [place] -, 162.5, cm, 01/24/20 9:06:00 EDT, [facility]... Start Date: 02/09/20 Status: Ordered MetFORMIN (Eqv-Glucophage XR) 500 mg oral tablet, extended release 1 tablet = 500 mg, By Mouth, Daily, # 90 tablet, 3 Refills, Maintenance, 01/26/20 22:25:00 EDT, [place], [place] -, 162.5, cm, 01/24/20 9:06:00 EDT, [...] Refills, Maintenance, 01/26/20 22:22:00 EDT, ER Tablet, [place], [place] -, 162.5, cm, 01/24/20 9:06:00 EDT, Height, 109.5, kg, 10/20/18 21:30:00 EST, Dry Weight Start Date: 01/26/20 Status: Ordered omeprazole 20 mg oral enteric coated capsule 1 capsule = 20 mg, By Mouth, Daily, # 30 capsule, 2 Refills, Maintenance, 05/04/20 9:38:00 EDT, EC Capsule, [facility] #[id number], 162.5, cm, 04/27/20 11:13:00 EDT, Height, 109.5, kg, 10/20/18 21:30:00 EST, Dry Weight Start Date: 05/04/20 Status: Ordered sertraline 100 mg oral tablet 1 tablet = 100 mg, By Mouth, Daily, # 7 tablet, 0 Refills, Maintenance, 04/07/20 13:06:00 EDT, [facility] #[id number], 162.5, cm, 04/07/20 10:29:00 EDT, Height, 109.5, kg, 10/20/18 21:30:00 EST,Dry Weight Start Date: 04/07/20 Stop Date: 04/14/20 Status: Ordered sertraline 100 mg oral tablet 1.5 tablet = 150 mg, By Mouth, Daily, # 45 tablet, 0 Refills, Maintenance, 04/14/20 13:10:00 EDT, [facility] #[id number], 162.5, cm, 04/07/20 10:29:00 EDT, Height, 109.5, [...] ovarian syndrome(Confirmed) 05/02/09 Active Severe obesity(Confirmed) Active Diagnosis Diagnosis Type Effective Dates Health Status Cl inical Service Informant Bipolar disorder, curr episode depressed, severe, w/psychotic features Discharge Diagnosis 04/27/20 Vital Signs Most recent to oldest [Reference Range]: 1 Height 162.5 cm (04/27/20 11:13 AM) Social History Social History Type Response Smoking Status Former smoker; Type: Cigarettes; Other: quit 4 years ago; entered on: 10/28/17 Sex
--- OUTSIDE RECORDS SUMMARY | 2023-07-28 03:56 | XMS_ITS | Continuity of Care Document ---
Author Name Unknown Organization [facility] Adult Address [address] [place] [address]- Care Team Providers Care Film Processing Utility Worker Name Role Phone Alanis Wilson MD Primary Care Physician [place] [facility] [place](s): 09/21/20 - 10/21/20 [facility] Adult [address] [place] [address]- Allergies, Adverse Reactions, Alerts Substance Reaction Severity [...] 30 tablet, 0 Refills, Maintenance,08/24/20 17:36:00 EST, [facility] #[id number], 162.5, cm, 08/01/20 15:54:00 EST, Height, 109.5, kg, 10/20/18 21:30:00 EST, Dry Weight Start Date: 08/24/20 Status: Ordered ibuprofen 400 mg oral tablet 400 mg, 1, tablet, By Mouth, 2 times a day, PRN, # 90 tablet, Refills 1, Tot. Refills 1, Maintenance, Pain , Moderate, 02/09/20 11:30:00 EDT, Route to Pharmacy Electronically, [place], [place] -, 162.5, cm, 01/24/20 9:06:00 EDT, [facility]. Start Date: 02/09/20 Status: Ordered omeprazole 20 mg oral enteric coated capsule 1 capsule = 20 mg, By Mouth, Daily, # 30 capsule, 2 Refills, Maintenance, 10/04/20 14:06:00 EST, ECCapsule, [facility] #[id number], 162.5, cm, 09/01/20 7:39:00 EST, Height, 109.5, kg, 10/20/18 21:30:00 EST, Dry Weight Start Date: 10/04/20 Status: Ordered ZyrTEC 10 mg oral tablet 1 tablet = 10 mg, By Mouth, Daily, # 90 tablet, 3 Refills, Maintenance, 09/13/20 13:21:00 EST, Tablet, [place], [place] - [id number], 162.5, cm, 09/01/20 7:39:00 EST, Height, 109.5, [...]
--- OUTSIDE RECORDS SUMMARY | 2023-07-28 03:56 | XMS_ITS | Continuity of Care Document ---
Author Name Unknown Organization [facility] Adult Address [address] [place] [address]- Care Team Providers Care Line Walker Name Role Phone Katie NOVOA, Alanis Primary Care Physician Encounter [facility] [place] Date(s): 03/07/21 - 07/05/[address] [address]- Attending Physician: Alanis Wilson MD Allergies, Adverse [...] 02/26/21 11:05:00 EDT, Route to Pharmacy Electronically, [facility], 162.5, cm, 01/15/21 9:10:00 [...] 3 Refills, Maintenance, 09/13/20 13:21:00 EST, Tablet, [facility] - [place], [place] - [id number], 162.5, cm, 09/01/20 7:39:00 EST, Height, 109.5, [...]
--- OUTSIDE RECORDS SUMMARY | 2023-07-28 03:56 | XMS_ITS | Continuity of Care Document ---
Author Name Unknown Organization [facility] Adult Address [address] [place] [address]- Care Team Providers Care Surgical Technology Instructor Name Role Phone Alanis Wilson MD Primary Care Physician [place] [facility] [place] 06/21/21 - 07/21/21 [facility] Adult [address] [place] [address]- Attending Physician: Danish Harris Admitting Physician: AdmDanish [...] 02/26/21 11:05:00 EDT, Route to Pharmacy Electronically, [facility], 162.5, cm, 01/15/21 9:10:00 EDT, Height [...] 3 Refills, Maintenance, 09/13/20 13:21:00 EST, Tablet, [facility] - [place], [place] - [id number], 162.5, cm, 09/01/20 7:39:00 EST, Height, 109.5, [...]
--- OUTSIDE RECORDS SUMMARY | 2023-07-28 03:56 | XMS_ITS | Continuity of Care Document ---
Author Name Unknown Organization [facility] Adult Address [address] [place] [address]- Care Team Providers Care Occupational Health Nursing Director Name Role Phone Katie NOVOA, Alanis Primary Care Physician [phone] Encounter [facility] Date(s): 02/14/21 - 03/16/[address] [facility] Adult [address] [place] [id number] Allergies, Adverse Reactions, Alerts Substance Reaction Severity [...] 30 tablet, 0 Refills, Maintenance,08/24/20 17:36:00 EST, [facility] #[id number], 162.5, cm, 08/01/20 15:54:00 EST, Height, 109.5, [...] capsule, 2 Refills, Maintenance, 02/26/21 11:05:00 EDT, [facility], 162.5, cm, 01/15/21 9:10:00 EDT, Height Start Date: 02/26/21 Status: Ordered ZyrTEC 10 mg oral tablet 1 tablet = 10 mg, By Mouth, Daily, # 90 tablet, 3 Refills, Maintenance, 09/13/20 13:21:00 EST, Tablet, [facility] - [place], [place] - [id number], 162.5, cm, 09/01/20 7:39:00 EST, Height, 109.5, [...]
--- OUTSIDE RECORDS SUMMARY | 2023-07-28 03:56 | XMS_ITS | Continuity of Care Document ---
Author Name Unknown Organization [facility] Adult Address [address] [place] [address]- Care Team Providers Care Human Resource Assistant Name Role Phone Alanis Wilson MD Primary Care Physician Encounter [facility] [place] Date(s): 11/14/20 - 11/21/20 [facility] Adult [address] [place] [address]- Encounter Diagnosis Migraine headache(Discharge Diagnosis) - 11/14/20 Attending Physician: Alanis Wilson MD Allergies, Adverse [...] 30 tablet, 0 Refills, Maintenance,08/24/20 17:36:00 EST, [id number], 162.5, cm, 08/01/20 15:54:00 EST, Height, 109.5, kg, 10/20/18 21:30:00 EST, Dry Weight Start Date: 08/24/20 Status: Ordered ibuprofen 400 mg oral tablet 400 mg, 1, tablet, By Mouth, 2 times a day, PRN, # 90 tablet, Refills 1, Tot. Refills 1, Maintenance, Pain , Moderate, 02/09/20 11:30:00 EDT, Route to Pharmacy Electronically, [place], [place] -, 162.5, cm, 01/24/20 9:06:00 EDT, [facility]... Start Date: 02/09/20 Status: Ordered omeprazole 20 mg oral enteric coated capsule 1 capsule = 20 mg, By Mouth, Daily, # 30 capsule, 2 Refills, Maintenance, 10/04/20 14:06:00 EST, ECCapsule, [facility] #[id number], 162.5, cm, 09/01/20 7:39:00 EST, Height, 109.5, kg, 10/20/18 21:30:00 EST, Dry Weight Start Date: 10/04/20 Status: Ordered ZyrTEC 10 mg oral tablet 1 tablet = 10 mg, By Mouth, Daily, # 90 tablet, 3 Refills, Maintenance, 09/13/20 13:21:00 EST, Tablet, [place], [place] - [id number], 162.5, cm, 09/01/20 7:39:00 EST, Height, 109.5, kg, 10/20/18 21:30:00 EST, Dry Weight Start Date: 09/13/20 Stop Date: 09/08/21 Status: Ordered Problem List Condition Effective Dates Status Health Status Inform ant Bipolar disorder(Confirmed) Active Migraine headache(Confirmed) Active PCOS - Polycystic ovarian syndrome(Confirmed) 05/02/09 Active Diagnosis Diagnosis Type Effective Dates Health Status Cl inical Service Informant Migraine headache Discharge Diagnosis 11/14/20 Vital Signs Most recent to oldest [Reference Range]: 1 Height 162.5 cm (11/14/20 3:25 PM) Weight 102.4 kg (11/14/20 3:25 PM) Oxygen Saturation [94-100 %] 97 % (11/14/20 3:25 PM) Pulse Rate [55-90 bpm] 102 bpm *H* (11/14/20 3:25 PM) Body Mass Index [18.5-24.99] 38.78 *>HHI* (11/14/20 3:25 PM) Blood Pressure [90-138/55-84 mm Hg] 104/ 70mm Hg (11/14/20 3:25 PM) Respiratory Rate [16-30 br/min] 18 br/mi n (11/14/20 3:25 PM) Mode of Delivery (Oxygen) Room air (11/14/20 3:25 PM) Blood pressure sites Arm, right (11/14/20 3:25 PM) Weight Obtained Via Standing scale (11/14/20 3:25 PM) Social History Social History Type Response Smoking Status Former smoker; Type: Cigarettes; Other: quit 4 years ago; entered on: 10/28/17 Sex
--- OUTSIDE RECORDS SUMMARY | 2023-07-28 03:56 | XMS_ITS | Continuity of Care Document ---
Author Name Unknown Organization [facility] Adult Address [address] [place] [address]- Care Team Providers Care Pot Builder Name Role Phone Katie NOVOA, Alanis Primary Care Physician [phone] Encounter [facility] Date(s): 10/10/21 - 11/09/21 [facility] Adult [address] [place] [address]- Allergies, Adverse Reactions, Alerts Substance Reaction Severity [...] 02/26/21 11:05:00 EDT, Route to Pharmacy Electronically, [facility], 162.5, cm, 01/15/21 9:10:00 EDT, [...] 3 Refills, Maintenance, 09/13/20 13:21:00 EST, Tablet, [facility] [place], [place] - [id number], 162.5, cm, 09/01/20 7:39:00 EST, Height, 109.5, [...]
--- OUTSIDE RECORDS SUMMARY | 2023-07-28 03:56 | XMS_ITS | Continuity of Care Document ---
Author Name Unknown Organization [facility] Adult Address [address] [place] [address]- Care Team Providers Care Boilermaker Apprentice Name Role Phone Alanis Wilson MD Primary Care Physician [phone] [place] [facility] Date(s): 08/28/20 - 09/04/20 [facility] Adult [address] [place] [address]- Encounter Diagnosis Chest pain, atypical(Discharge Diagnosis) - 08/28/20 Attending Physician: Alanis Wilson MD Allergies, Adverse [...] 30 tablet, 0 Refills, Maintenance,08/24/20 17:36:00 EST, [facility] #[id number], 162.5, cm, 08/01/20 15:54:00 EST, Height, 109.5, kg, 10/20/18 21:30:00 EST, Dry Weight Start Date: 08/24/20 Status: Ordered ibuprofen 400 mg oral tablet 400 mg, 1, tablet, By Mouth, 2 times a day, PRN, # 90 tablet, Refills 1, Tot. Refills 1, Maintenance, Pain , Moderate, 02/09/20 11:30:00 EDT, Route to Pharmacy Electronically, [facility] [place], [place] -, 162.5, cm, 01/24/20 9:06:00 EDT, Joy... Start Date: 02/09/20 Status: Ordered omeprazole 20 mg oral enteric coated capsule 1 capsule = 20 mg, By Mouth, Daily, # 30 capsule, 2 Refills, Maintenance, 05/04/20 9:38:00 EDT, EC Capsule, [facility] #[id number], 162.5, cm, 04/27/20 11:13:00 EDT, Height, 109.5, kg, 10/20/18 21:30:00 EST, Dry Weight Start Date: 05/04/20 Status: Ordered Problem List Condition Effective Dates Status Health Status Inform ant Bipolar disorder(Confirmed) Active Migraine headache(Confirmed) Active PCOS - Polycystic ovarian syndrome(Confirmed) 05/02/09 Active Diagnosis Diagnosis Type Effective Dates Health Status Cl inical Service Informant Chest pain, atypical Discharge Diagnosis 08/28/20 Vital Signs Most recent to oldest [Reference Range]: 1 Height 162.5 cm (08/28/20 11:43 AM) Weight 103.5 kg (08/28/20 11:43 AM) Oxygen Saturation [94-100 %] 98 % (08/28/20 11:43 AM) Pulse Rate [55-90 bpm] 95 bpm *H* (08/28/20 11:43 AM) Body Mass Index [18.5-24.99] 39.2 *>HHI* (08/28/20 11:43 AM) Blood Pressure [90-138/55-84 mm Hg] 102/ 66mm Hg (08/28/20 11:43 AM) Respiratory Rate [16-30 br/min] 18 br/mi n (08/28/20 11:43 AM) Mode of Delivery (Oxygen) Room air (08/28/20 11:43 AM) Blood pressure sites Arm, left (08/28/20 11:43 AM) Weight Obtained Via Standing scale (08/28/20 11:43 AM) Social History Social History Type Response Smoking Status Former smoker; Type: Cigarettes; Other: quit 4 years ago; entered on: 10/28/17 Sex
--- OUTSIDE RECORDS SUMMARY | 2023-07-28 03:56 | XMS_ITS | Continuity of Care Document ---
Author Name Unknown Organization [facility] Adult Address [address] [place] [address]- Care Team Providers Care Mill Operator Name Role Phone Alanis Wilson MD Primary Care Physician [phone] Encounter [facility] [place] Date(s): 04/04/20 - 05/04/20 [facility] Adult [address] [place] [address]- [facility] Allergies, Adverse Reactions, Alerts Substance Reaction Severity [...] 30 tablet, 0 Refills, Maintenance,11/24/19 12:57:00 EDT, [place], [place] -, 162.5, cm, 10/07/19 14:20:00 EST, [...] 08/10/19 13:50:44 EST, Route to Pharmacy Electronically, [place], [place] -, 162.5, cm, 04/07/19 11:09:30 EDT, Height, 109.5, kg, 10/20/18... Start Date: 08/10/19 Status: Ordered ibuprofen 400 mg oral tablet 400 mg, 1, tablet, By Mouth, 2 times a day, PRN, # 90 tablet, Refills 1, Tot. Refills 1, Maintenance, Pain , Moderate, 02/09/20 11:30:00 EDT, Route to Pharmacy Electronically, [place], [place] -, 162.5, cm, 01/24/20 9:06:00 EDT, Joy... Start Date: 02/09/20 Status: Ordered MetFORMIN (Eqv-Glucophage XR) 500 mg oral tablet, extended release 1 tablet = 500 mg, By Mouth, Daily, # 90 tablet, 3 Refills, Maintenance, 01/26/20 22:25:00 EDT, [place], [place] -, 162.5, cm, 01/24/20 9:06:00 EDT, [...] Refills, Maintenance, 01/26/20 22:22:00 EDT, ER Tablet, [place], [place] -, 162.5, cm, 01/24/20 9:06:00 EDT, Height, 109.5, kg, 10/20/18 21:30:00 EST, Dry Weight Start Date: 01/26/20 Status: Ordered omeprazole 20 mg oral enteric coated capsule 1 capsule = 20 mg, By Mouth, Daily, # 30 capsule, 2 Refills, Maintenance, 05/04/20 9:38:00 EDT, EC Capsule, [facility] #[id number], 162.5, cm, 04/27/20 11:13:00 EDT, Height, 109.5, kg, 10/20/18 21:30:00 EST, Dry Weight Start Date: 05/04/20 Status: Ordered sertraline 100 mg oral tablet 1 tablet = 100 mg, By Mouth, Daily, # 7 tablet, 0 Refills, Maintenance, 04/07/20 13:06:00 EDT, [facility] #[id number], 162.5, cm, 04/07/20 10:29:00 EDT, Height, 109.5, kg, 10/20/18 21:30:00 EST,Dry Weight Start Date: 04/07/20 Stop Date: 04/14/20 Status: Ordered sertraline 100 mg oral tablet 1.5 tablet = 150 mg, By Mouth, Daily, # 45 tablet, 0 Refills, Maintenance, 04/14/20 13:10:00 EDT, [facility] #[id number], 162.5, cm, 04/07/20 10:29:00 EDT, Height, 109.5, [...]
--- OUTSIDE RECORDS SUMMARY | 2023-07-28 03:56 | XMS_ITS | Continuity of Care Document ---
Author Name Unknown Organization [facility] Adult Address [address] [place] [address]- Care Team Providers Care Computer Forensics Investigator Name Role Phone Katie NOOVA, Alanis Primary Care Physician Encounter [facility] [place] Date(s): 01/15/21 - 02/14/21 [facility] Adult [address] [place] [address]- Attending Physician: Danish Harris Admitting Physician: Danish Harris Referring Physician: AdmtrDanish Allergies, Adverse Reactions, Alerts [...] 30 tablet, 0 Refills, Maintenance,08/24/20 17:36:00 EST, [id number], 162.5, cm, 08/01/20 15:54:00 EST, Height, 109.5, kg, 10/20/18 21:30:00 EST, Dry Weight Start Date: 08/24/20 Status: Ordered ibuprofen 400 mg oral tablet 400 mg, 1, tablet, By Mouth, 2 times a day, PRN, # 90 tablet, Refills 1, Tot. Refills 1, Maintenance, Pain , Moderate, 02/09/20 11:30:00 EDT, Route to Pharmacy Electronically, [place], [place] -, 162.5, cm, 01/24/20 9:06:00 EDT, Joy... Start Date: 02/09/20 Status: Ordered omeprazole 20 mg oral enteric coated capsule 1 capsule = 20 mg, By Mouth, Daily, # 30 capsule, 2 Refills, Maintenance, 12/21/20 15:26:00 EDT, ECCapsule, [facility] #[id number], 162.5, cm, 12/05/20 12:55:00 EDT, Height Start Date: 12/21/20 Status: Ordered ZyrTEC 10 mg oral tablet 1 tablet = 10 mg, By Mouth, Daily, # 90 tablet, 3 Refills, Maintenance, 09/13/20 13:21:00 EST, Tablet, [place], [place] - [id number], 162.5, cm, 09/01/20 7:39:00 EST, Height, 109.5, [...]
--- OUTSIDE RECORDS SUMMARY | 2023-07-28 03:56 | XMS_ITS | Continuity of Care Document ---
Author Name Unknown Organization [facility] Adult Address [address] [place] [address]- Care Team Providers Care In Class Special Education Teacher Name Role Phone Alanis Wilson MD Primary Care Physician Encounter [facility] [place] Date(s): 04/05/20 - 05/05/20 [facility] Adult [address] [place] [address]- [facility] Allergies, Adverse Reactions, Alerts Substance [...] 30 tablet, 0 Refills, Maintenance,11/24/19 12:57:00 EDT, [place], [place] -, 162.5, cm, 10/07/19 14:20:00 EST, [...] 08/10/19 13:50:44 EST, Route to Pharmacy Electronically, [place], [place] -, 162.5, cm, 04/07/19 11:09:30 EDT, Height, 109.5, kg, 10/20/18... Start Date: 08/10/19 Status: Ordered ibuprofen 400 mg oral tablet 400 mg, 1, tablet, By Mouth, 2 times a day, PRN, # 90 tablet, Refills 1, Tot. Refills 1, Maintenance, Pain , Moderate, 02/09/20 11:30:00 EDT, Route to Pharmacy Electronically, [place], [place] -, 162.5, cm, 01/24/20 9:06:00 EDT, Joy... Start Date: 02/09/20 Status: Ordered MetFORMIN (Eqv-Glucophage XR) 500 mg oral tablet, extended release 1 tablet = 500 mg, By Mouth, Daily, # 90 tablet, 3 Refills, Maintenance, 01/26/20 22:25:00 EDT, [place], [place] -, 162.5, cm, 01/24/20 9:06:00 EDT, [...] Refills, Maintenance, 01/26/20 22:22:00 EDT, ER Tablet, [place], [place] -, 162.5, cm, 01/24/20 9:06:00 EDT, Height, 109.5, kg, 10/20/18 21:30:00 EST, Dry Weight Start Date: 01/26/20 Status: Ordered omeprazole 20 mg oral enteric coated capsule 1 capsule = 20 mg, By Mouth, Daily, # 30 capsule, 2 Refills, Maintenance, 05/04/20 9:38:00 EDT, EC Capsule, [facility] #[id number], 162.5, cm, 04/27/20 11:13:00 EDT, Height, 109.5, kg, 10/20/18 21:30:00 EST, Dry Weight Start Date: 05/04/20 Status: Ordered sertraline 100 mg oral tablet 1 tablet = 100 mg, By Mouth, Daily, # 7 tablet, 0 Refills, Maintenance, 04/07/20 13:06:00 EDT, [facility] #[id number], 162.5, cm, 04/07/20 10:29:00 EDT, Height, 109.5, kg, 10/20/18 21:30:00 EST,Dry Weight Start Date: 04/07/20 Stop Date: 04/14/20 Status: Ordered sertraline 100 mg oral tablet 1.5 tablet = 150 mg, By Mouth, Daily, # 45 tablet, 0 Refills, Maintenance, 04/14/20 13:10:00 EDT, [facility] #[id number], 162.5, cm, 04/07/20 10:29:00 EDT, Height, 109.5, [...]
--- OUTSIDE RECORDS SUMMARY | 2023-07-28 03:56 | XMS_ITS | Continuity of Care Document ---
Author Name Unknown Organization [facility] Adult Address [address] [place] [address]- Care Team Providers Care Polishing Wheel Setter Name Role Phone Alanis Wilson MD Primary Care Physician [phone] Encounter [facility] [place] Date(s): 04/24/21 - 05/24/21 [facility] Adult [address] [place] [address]- Allergies, Adverse Reactions, Alerts Substance Reaction Severity [...] 07/22/00 Given hepatitis B pediatric vaccine 9 12/4/98 Given 1Admin Note: work 2Admin Note: rite [...] 15 tablet, 0 Refills, Maintenance,05/04/21 9:36:00 EDT, [facility] [id number], 162.5, cm, 05/03/21 13:05:00 EDT, Height Start Date: 05/04/21 Status: Ordered ibuprofen 400 mg oral tablet 1, tablet, By Mouth, 2 times a day, PRN, # 60 tablet, Refills 1, Tot. Refills 0, Acute, NEEDED FOR MODERATE PAIN, 02/26/21 11:05:00 EDT, Route to Pharmacy Electronically, [facility], 162.5, cm, 01/15/21 9:10:00 EDT, Height Start [...] 3 Refills, Maintenance, 09/13/20 13:21:00 EST, Tablet, [facility], [place] - [id number], 162.5, cm, 09/01/20 7:39:00 EST, Height, 109.5, [...]
--- OUTSIDE RECORDS SUMMARY | 2023-07-28 03:56 | XMS_ITS | Continuity of Care Document ---
Author Name Unknown Organization [facility] ter Address [address] [place] [address]- Care Team Providers Care Department Clerk Name Role Phone Katie NOVOA, Alanis Primary Care Physician [phone] Encounter [facility] Date(s): 01/21/21 - 03/02/[address] [address] Attending Physician: Gabriela Kumar NP [...] 30 tablet, 0 Refills, Maintenance,08/24/20 17:36:00 EST, [facility] #[id number], 162.5, cm, 08/01/20 15:54:00 EST, Height, 109.5, kg, 10/20/18 21:30:00 EST, Dry Weight Start Date: 08/24/20 Status: Ordered ibuprofen 400 mg oral tablet 1, tablet, By Mouth, 2 times a day, PRN, # 60 tablet, Refills 1, Tot. Refills 0, Acute, NEEDED FOR MODERATE PAIN, 02/26/21 11:05:00 EDT, Route to Pharmacy Electronically, [facility], 162.5, cm, 01/15/21 9:10:00 EDT, Height Start Date: 02/26/21 Status: Ordered omeprazole 20 mg oral enteric coated capsule 1 capsule, By Mouth, Daily, # 30 capsule, 2 Refills, Maintenance, 02/26/21 11:05:00 EDT, [facility], 162.5, cm, 01/15/21 9:10:00 EDT, Height Start Date: 02/26/21 Status: Ordered ZyrTEC 10 mg oral tablet 1 tablet = 10 mg, By Mouth, Daily, # 90 tablet, 3 Refills, Maintenance, 09/13/20 13:21:00 EST, Tablet, [facility] [place], [place] - [id number], 162.5, cm, 09/01/20 7:39:00 EST, Height, 109.5, [...]
--- OUTSIDE RECORDS SUMMARY | 2023-07-28 03:56 | XMS_ITS | Continuity of Care Document ---
Author Name Unknown Organization [facility] ter Address [address] [place] [address]- Care Team Providers Care Hydrochloric Area Supervisor Name Role Phone Alanis Wilson MD Primary Care Physician Encounter [facility] Date(s): 06/01/21 - 06/02/[address] [address]- Discharge Disposition: A-D/C Walkout Attending Physician: Not on Staff, Attending MD Admitting Physician: Not on Staff, Admitting MD Referring Physician: Not on Staff, Referring [...] 15 tablet, 0 Refills, Maintenance,05/04/21 9:36:00 EDT, [facility] [id number], 162.5, cm, 05/03/21 13:05:00 EDT, Height Start Date: 05/04/21 Status: Ordered ibuprofen 400 mg oral tablet 1, tablet, By Mouth, 2 times a day, PRN, # 60 tablet, Refills 1, Tot. Refills 0, Acute, NEEDED FOR MODERATE PAIN, 02/26/21 11:05:00 EDT, Route to Pharmacy Electronically, [facility], 162.5, cm, 01/15/21 9:10:00 EDT, Height [...] 3 Refills, Maintenance, 09/13/20 13:21:00 EST, Tablet, [facility] [id number], 162.5, cm, 09/01/20 7:39:00 EST, Height, 109.5, kg, 10/20/18 21:30:00 EST, Dry Weight Start Date: 09/13/20 Stop Date: 1/15/22 Status: Ordered Problem List Condition Effective Dates Status Health Status Inform ant Bipolar disorder(Confirmed) Active Migraine headache(Confirmed) Active PCOS - Polycystic ovarian syndrome(Confirmed) 05/02/09 Active Prediabetes(Confirmed) Active Vital Signs Most recent to oldest [Reference Range]: 1 Oxygen Saturation [94-100 %] 100 % (06/01/21 8:23 PM) Pulse Rate [55-90 bpm] 87 bpm (06/01/21 8:23 PM) Blood Pressure [90-138/55-84 mm Hg] 128/ 66mm Hg (06/01/21 8:23 PM) Respiratory Rate [16-30 br/min] 18 br/mi n (06/01/21 8:23 PM) Temperature [96.8-100.4 DegF] 98.4 DegF (06/01/21 8:23 PM) Mode of Delivery (Oxygen) Room air (06/01/21 8:23 PM) Blood pressure sites Arm, right (06/01/21 8:23 PM) Temperature Route Oral (06/01/21 8:23 PM) Social History Social History Type Response Smoking Status 5-9 cigarettes (betw een 1/4 to 1/2 pack)/day in last 30 days entered on: 12/05/20 Sex
--- OUTSIDE RECORDS SUMMARY | 2023-07-28 03:56 | XMS_ITS | Continuity of Care Document ---
Author Name Unknown Organization [facility] Adult Address [address] [place] [address]- Care Team Providers Care Packaging Clerk Name Role Phone Alanis Wilson MD Primary Care Physician Encounter [facility] [place] Date(s): 05/03/21 - 06/02/21 [facility] Adult [address] [place] [address]- Allergies, Adverse Reactions, Alerts Substance Reaction Severity [...] 15 tablet, 0 Refills, Maintenance,05/04/21 9:36:00 EDT, [facility] [id number], 162.5, cm, 05/03/21 13:05:00 EDT, Height Start Date: 05/04/21 Status: Ordered ibuprofen 400 mg oral tablet 1, tablet, By Mouth, 2 times a day, PRN, # 60 tablet, Refills 1, Tot. Refills 0, Acute, NEEDED FOR MODERATE PAIN, 02/26/21 11:05:00 EDT, Route to Pharmacy Electronically, [facility], 162.5, cm, 01/15/21 9:10:00 EDT, Height [...] Refills, Maintenance, 09/13/20 13:21:00 EST, Tablet, [facility], [place] - [id number], 162.5, cm, 09/01/20 7:39:00 EST, Height, 109.5, [...]
--- OUTSIDE RECORDS SUMMARY | 2023-07-28 03:56 | XMS_ITS | Continuity of Care Document ---
Author Name Unknown Organization [facility] Adult Address [address] [place] [address]- Care Team Providers Care Senior Chemical Engineer Name Role Phone Alanis Wilson MD Primary Care Physician [phone] Encounter [facility] [place] Date(s): 03/24/20 - 04/23/20 [facility] Adult [address] [place] [address]- [facility] Allergies, Adverse Reactions, Alerts Substance Reaction [...] 30 tablet, 0 Refills, Maintenance,11/24/19 12:57:00 EDT, [place], [place] -, 162.5, cm, 10/07/19 14:20:00 EST, [...] 08/10/19 13:50:44 EST, Route to Pharmacy Electronically, [place], [place] -, 162.5, cm, 04/07/19 11:09:30 EDT, Height, 109.5, kg, 10/20/18... Start Date: 08/10/19 Status: Ordered ibuprofen 400 mg oral tablet 400 mg, 1, tablet, By Mouth, 2 times a day, PRN, # 90 tablet, Refills 1, Tot. Refills 1, Maintenance, Pain , Moderate, 02/09/20 11:30:00 EDT, Route to Pharmacy Electronically, [place], [place] -, 162.5, cm, 01/24/20 9:06:00 EDT, Joy... Start Date: 02/09/20 Status: Ordered MetFORMIN (Eqv-Glucophage XR) 500 mg oral tablet, extended release 1 tablet = 500 mg, By Mouth, Daily, # 90 tablet, 3 Refills, Maintenance, 01/26/20 22:25:00 EDT, [place], [place] -, 162.5, cm, 01/24/20 9:06:00 EDT, [...] Refills, Maintenance, 01/26/20 22:22:00 EDT, ER Tablet, [place], [place] -, 162.5, cm, 01/24/20 9:06:00 EDT, Height, 109.5, kg, 10/20/18 21:30:00 EST, Dry Weight Start Date: 01/26/20 Status: Ordered omeprazole 20 mg oral enteric coated capsule 1 capsule = 20 mg, By Mouth, Daily, # 30 capsule, 2 Refills, Maintenance, 01/21/20 11:11:00 EDT, [facility]CCapsule, [place], [place] -, 162.5, cm, 01/13/20 11:04:00 EDT, Height, 109.5, kg, 10/20/18 21:30:00 EST, Dry Weight Start Date: 01/21/20 Status: Ordered sertraline 100 mg oral tablet 1 tablet = 100 mg, By Mouth, Daily, # 7 tablet, 0 Refills, Maintenance, 04/07/20 13:06:00 EDT, [facility] #[id number], 162.5, cm, 04/07/20 10:29:00 EDT, Height, 109.5, kg, 10/20/18 21:30:00 EST,Dry Weight Start Date: 04/07/20 Stop Date: 04/14/20 Status: Ordered sertraline 100 mg oral tablet 1.5 tablet = 150 mg, By Mouth, Daily, # 45 tablet, 0 Refills, Maintenance, 04/14/20 13:10:00 EDT, [facility] #[id number], 162.5, cm, 04/07/20 10:29:00 EDT, Height, 109.5, [...]
--- OUTSIDE RECORDS SUMMARY | 2023-07-28 03:56 | XMS_ITS | Continuity of Care Document ---
Author Name Unknown Organization [facility] Address [address] [place] [address]- Care Team Providers Care Pharmacy Teacher Name Role Phone Alanis Wilson MD Primary Care Physician [phone] [facility] Date(s): 05/04/21 - 06/03/21 [facility] [address] [place] [address]- [place] Allergies, Adverse Reactions, Alerts Substance Reaction Severity [...] 15 tablet, 0 Refills, Maintenance,05/04/21 9:36:00 EDT, [place], [place] - [id number], 162.5, cm, 05/03/21 13:05:00 EDT, Height Start Date: 05/04/21 Status: Ordered ibuprofen 400 mg oral tablet 1, tablet, By Mouth, 2 times a day, PRN, # 60 tablet, Refills 1, Tot. Refills 0, Acute, NEEDED FOR MODERATE PAIN, 02/26/21 11:05:00 EDT, Route to Pharmacy Electronically, [facility], 162.5, cm, 01/15/21 9:10:00 EDT, Height [...] 3 Refills, Maintenance, 09/13/20 13:21:00 EST, Tablet, [place], [place] - [id number], 162.5, cm, 09/01/20 7:39:00 EST, Height, 109.5, [...]
--- OUTSIDE RECORDS SUMMARY | 2023-07-28 03:57 | XMS_ITS | Continuity of Care Document ---
Author Name Unknown Organization [facility] Adult Address [address] [place] [address]- Care Team Providers Care Contract Associate Manager Name Role Phone Alanis Wilson MD Primary Care Physician En[place] [facility] [place] Date(s): 08/16/20 - 09/15/20 [facility] Adult [address] [place] [address]- Allergies, Adverse Reactions, Alerts Substance Reaction Severity [...] 30 tablet, 0 Refills, Maintenance,08/24/20 17:36:00 EST, [id number], 162.5, cm, 08/01/20 15:54:00 EST, Height, 109.5, kg, 10/20/18 21:30:00 EST, Dry Weight Start Date: 08/24/20 Status: Ordered ibuprofen 400 mg oral tablet 400 mg, 1, tablet, By Mouth, 2 times a day, PRN, # 90 tablet, Refills 1, Tot. Refills 1, Maintenance, Pain , Moderate, 02/09/20 11:30:00 EDT, Route to Pharmacy Electronically, [place], [place] -, 162.5, cm, 01/24/20 9:06:00 EDT, [facility]... Start Date: 02/09/20 Status: Ordered omeprazole 20 mg oral enteric coated capsule 1 capsule = 20 mg, By Mouth, Daily, # 30 capsule, 2 Refills, Maintenance, 05/04/20 9:38:00 EDT, EC Capsule, [facility] #[id number], 162.5, cm, 04/27/20 11:13:00 EDT, Height, 109.5, kg, 10/20/18 21:30:00 EST, Dry Weight Start Date: 05/04/20 Status: Ordered ZyrTEC 10 mg oral tablet 1 tablet = 10 mg, By Mouth, Daily, # 90 tablet, 3 Refills, Maintenance, 09/13/20 13:21:00 EST, Tablet, [place], [place] - [id number], 162.5, cm, 09/01/20 7:39:00 EST, Height, 109.5, [...]
--- OUTSIDE RECORDS SUMMARY | 2023-07-28 03:57 | XMS_ITS | Continuity of Care Document ---
Author Name Unknown Organization [facility] Adult Address [address] [place] [address]- Care Team Providers Care Pit Shovel Operator Name Role Phone Katie NOVOA, Alanis Primary Care Physician [phone] Encounter [facility] [place] Date(s): 01/15/21 - 01/22/21 [facility] Adult [address] [place] [address]- Encounter Diagnosis Migraine headache(Discharge Diagnosis) - 01/15/21 Attending Physician: Alanis Wilson MD Allergies, Adverse [...] 30 tablet, 0 Refills, Maintenance,08/24/20 17:36:00 EST, [id number], 162.5, cm, 08/01/20 15:54:00 EST, Height, 109.5, kg, 10/20/18 21:30:00 EST, Dry Weight Start Date: 08/24/20 Status: Ordered ibuprofen 400 mg oral tablet 400 mg, 1, tablet, By Mouth, 2 times a day, PRN, # 90 tablet, Refills 1, Tot. Refills 1, Maintenance, Pain , Moderate, 02/09/20 11:30:00 EDT, Route to Pharmacy Electronically, [place], [place] -, 162.5, cm, 01/24/20 9:06:00 EDT, Joy... Start Date: 02/09/20 Status: Ordered omeprazole 20 mg oral enteric coated capsule 1 capsule = 20 mg, By Mouth, Daily, # 30 capsule, 2 Refills, Maintenance, 12/21/20 15:26:00 EDT, ECCapsule, [facility] #[id number], 162.5, cm, 12/05/20 12:55:00 EDT, Height Start Date: 12/21/20 Status: Ordered ZyrTEC 10 mg oral tablet 1 tablet = 10 mg, By Mouth, Daily, # 90 tablet, 3 Refills, Maintenance, 09/13/20 13:21:00 EST, Tablet, [place], [place] - [id number], 162.5, cm, 09/01/20 7:39:00 EST, Height, 109.5, kg, 10/20/18 21:30:00 EST, Dry Weight Start Date: 09/13/20 Stop Date: 09/08/21 Status: Ordered Problem List Condition Effective Dates Status Health Status Inform ant Bipolar disorder(Confirmed) Active Migraine headache(Confirmed) Active PCOS - Polycystic ovarian syndrome(Confirmed) 05/02/09 Active Prediabetes(Confirmed) Active Diagnosis Diagnosis Type Effective Dates Health Status Cl inical Service Informant Migraine headache Discharge Diagnosis 01/15/21 Vital Signs Most recent to oldest [Reference Range]: 1 Height 162.5 cm (01/15/21 9:10 AM) Weight 102.05 kg (01/15/21 9:10 AM) Body Mass Index [18.5-24.99] 38.65 *>HHI* (01/15/21 9:10 AM) Weight Obtained Via Patient/family state d (01/15/21 9:10 AM) Social History Social History Type Response Smoking Status 5-9 cigarettes (betw een 1/4 to 1/2 pack)/day in last 30 days entered on: 12/05/20 Sex
--- OUTSIDE RECORDS SUMMARY | 2023-07-28 03:57 | XMS_ITS | Continuity of Care Document ---
Author Name Unknown Organization [facility] Adult Address [address] [place] [address]- Care Team Providers Care Academic Interventionist Name Role Phone Katie NOVOA, Alanis Primary Care Physician [phone] Encounter [facility] [place] Date(s): 05/16/21 - 06/15/[address] [address]- Allergies, Adverse Reactions, Alerts Substance Reaction Severity [...] 06/18/21 11:15:00 EDT, 06/04/21 11:15:00 EDT, Capsule, [email or web address] #[id number], Partial fill upon patient request if the prescription is for a... Start Date: 06/04/21 Stop Date: 06/18/21 Status: Ordered ibuprofen 400 mg oral tablet 1, tablet, By Mouth, 2 times a day, PRN, # 60 tablet, Refills 1, Tot. Refills 0, Acute, NEEDED FOR MODERATE PAIN, 02/26/21 11:05:00 EDT, Route to Pharmacy Electronically, [facility], 162.5, cm, 01/15/21 9:10:00 [...] 3 Refills, Maintenance, 09/13/20 13:21:00 EST, Tablet, [facility] - [place], [place] - [id number], 162.5, cm, 09/01/20 7:39:00 EST, Height, 109.5, [...]
--- OUTSIDE RECORDS SUMMARY | 2023-07-28 03:57 | XMS_ITS | Continuity of Care Document ---
Author Name Unknown Organization [facility] Adult Address [address] [place] [address]- Care Team Providers Care Tool Lapper Hand Name Role Phone Alanis Wilson MD Primary Care Physician Encounter [facility] [place] Date(s): 03/31/20 - 04/07/20 [facility] Adult [address] [place] [address]- [facility] Encounter Diagnosis Bipolar disorder, curr episode depressed, severe, w/psychotic features(Discharge Diagnosis) - 04/01/20 Attending Physician: Alanis Wilson MD Allergies, Adverse [...] 30 tablet, 0 Refills, Maintenance,11/24/19 12:57:00 EDT, [place], [place] -, 162.5, cm, 10/07/19 14:20:00 EST, [...] 08/10/19 13:50:44 EST, Route to Pharmacy Electronically, [place], [place] -, 162.5, cm, 04/07/19 11:09:30 EDT, Height, 109.5, kg, 10/20/18... Start Date: 08/10/19 Status: Ordered ibuprofen 400 mg oral tablet 400 mg, 1, tablet, By Mouth, 2 times a day, PRN, # 90 tablet, Refills 1, Tot. Refills 1, Maintenance, Pain , Moderate, 02/09/20 11:30:00 EDT, Route to Pharmacy Electronically, [place], [place] -, 162.5, cm, 01/24/20 9:06:00 EDT, Joy... Start Date: 02/09/20 Status: Ordered MetFORMIN (Eqv-Glucophage XR) 500 mg oral tablet, extended release 1 tablet = 500 mg, By Mouth, Daily, # 90 tablet, 3 Refills, Maintenance, 01/26/20 22:25:00 EDT, [place], [place] -, 162.5, cm, 01/24/20 9:06:00 EDT, [...] Refills, Maintenance, 01/26/20 22:22:00 EDT, ER Tablet, [place], [place] -, 162.5, cm, 01/24/20 9:06:00 EDT, Height, 109.5, kg, 10/20/18 21:30:00 EST, Dry Weight Start Date: 01/26/20 Status: Ordered omeprazole 20 mg oral enteric coated capsule 1 capsule = 20 mg, By Mouth, Daily, # 30 capsule, 2 Refills, Maintenance, 01/21/20 11:11:00 EDT, ECCapsule, [place], [place] -, 162.5, cm, 01/13/20 11:04:00 EDT, Height, 109.5, kg, 10/20/18 21:30:00 EST, Dry Weight Start Date: 01/21/20 Status: Ordered sertraline 100 mg oral tablet 1 tablet = 100 mg, By Mouth, Daily, # 7 tablet, 0 Refills, Maintenance, 04/07/20 13:06:00 EDT, [facility] #[id number], 162.5, cm, 04/07/20 10:29:00 EDT, Height, 109.5, kg, 10/20/18 21:30:00 EST,Dry Weight Start Date: 04/07/20 Stop Date: 04/14/20 Status: Ordered sertraline 100 mg oral tablet 1.5 tablet = 150 mg, By Mouth, Daily, # 45 tablet, 0 Refills, Maintenance, 04/14/20 13:10:00 EDT, [facility] #[id number], 162.5, cm, 04/07/20 10:29:00 EDT, Height, 109.5, [...] episode depressed, severe, w/psychotic features Discharge Diagnosis 04/01/20 Vital Signs Most recent to oldest [Reference Range]: 1 Height 162.5 cm (03/31/20 1:46 PM) Weight 103.7 kg (03/31/20 1:46 PM) Oxygen Saturation [94-100 %] 97 % (03/31/20 1:46 PM) Pulse Rate [55-90 bpm] 88 bpm (03/31/20 1:46 PM) Body Mass Index [18.5-24.99] 39.27 *>HHI* (03/31/20 1:46 PM) Blood Pressure [90-138/55-84 mm Hg] 102/ 60mm Hg (03/31/20 1:46 PM) Respiratory Rate [16-30 br/min] 18 br/mi n (03/31/20 1:46 PM) Mode of Delivery (Oxygen) Room air (03/31/20 1:46 PM) Blood pressure sites Arm, right (03/31/20 1:46 PM) Social History Social History Type Response Smoking Status Former smoker; Type: Cigarettes; Other: quit 4 years ago; entered on: 10/28/17 Sex
--- OUTSIDE RECORDS SUMMARY | 2023-07-28 03:57 | XMS_ITS | Continuity of Care Document ---
Author Name Unknown Organization [facility] Adult Address [address] [place] [address]- Care Team Providers Care Chief Cook Name Role Phone Katie NOVOA, Alanis Primary Care Physician [phone] Encounter [facility] [place] Date(s): 09/21/21 - 10/21/[address] [address]- Allergies, Adverse Reactions, Alerts Substance Reaction Severity [...] 02/26/21 11:05:00 EDT, Route to Pharmacy Electronically, [facility], 162.5, cm, 01/15/21 9:10:00 EDT, [...] 3 Refills, Maintenance, 09/13/20 13:21:00 EST, Tablet, [facility] - [place], [place] - [id number], 162.5, cm, 09/01/20 7:39:00 EST, Height, 109.5, [...]
--- OUTSIDE RECORDS SUMMARY | 2023-07-28 03:57 | XMS_ITS | Continuity of Care Document ---
Author Name Unknown Organization [facility] Adult Address [address] [place] [address]- Care Team Providers Care Letterpress Printing Machinist Name Role Phone Katie NOVOA, Alanis Primary Care Physician Encounter [facility] Date(s): 01/25/21 - 02/24/21 [facility] Adult [address] [place] [id number] Allergies, Adverse Reactions, Alerts Substance [...] Refills, Maintenance,08/24/20 17:36:00 EST, [facility] #[id number], 162.5, cm, 08/01/20 15:54:00 EST, Height, 109.5, kg, 10/20/18 21:30:00 EST, Dry Weight Start Date: 08/24/20 Status: Ordered ibuprofen 400 mg oral tablet 400 mg, 1, tablet, By Mouth, 2 times a day, PRN, # 90 tablet, Refills 1, Tot. Refills 1, Maintenance, Pain , Moderate, 02/09/20 11:30:00 EDT, Route to Pharmacy Electronically, [place], [place] -, 162.5, cm, 01/24/20 9:06:00 EDT, Joy... Start Date: 02/09/20 Status: Ordered omeprazole 20 mg oral enteric coated capsule 1 capsule = 20 mg, By Mouth, Daily, # 30 capsule, 2 Refills, Maintenance, 12/21/20 15:26:00 EDT, ECCapsule, [facility] #[id number], 162.5, cm, 12/05/20 12:55:00 EDT, Height Start Date: 12/21/20 Status: Ordered ZyrTEC 10 mg oral tablet 1 tablet = 10 mg, By Mouth, Daily, # 90 tablet, 3 Refills, Maintenance, 09/13/20 13:21:00 EST, Tablet, [place], [place] - [id number], 162.5, cm, 09/01/20 7:39:00 EST, Height, 109.5, [...]
--- OUTSIDE RECORDS SUMMARY | 2023-07-28 03:57 | XMS_ITS | Continuity of Care Document ---
Author Name Unknown Organization [facility] Adult Address [address] [place] [address]- Care Team Providers Care Oracle Pl Sql Developer Name Role Phone Katie NOVOA, Alanis Primary Care Physician [phone] Encounter [facility] [place] Date(s): 10/07/19 - 10/14/19 [facility] Adult [address] [place] [address]- [facility] Encounter Diagnosis Pharyngitis(Discharge Diagnosis) - 10/07/19 GERD (gastroesophageal reflux disease)(Discharge Diagnosis) - 10/07/19 Attending Physician: Alanis Wilson MD Allergies, Adverse [...] 9Admin Note: given by another practices. Medications busPIRone 10 mg oral tablet 10 mg, 1, tablet, By Mouth, 2 times a day, # 60 tablet, Refills 11, Tot. Refills 11, Maintenance, 12/11/18 17:10:41 EDT, Route to Pharmacy Electronically, [id number], [facility] Start Date: 12/11/18 Stop Date: 12/06/19 [...] 08/10/19 13:50:44 EST, Route to Pharmacy Electronically, [place], [place] -, 162.5, cm, 04/07/19 11:09:30 EDT, Height, 109.5, kg, 10/20/18... Start Date: 08/10/19 Status: Ordered ibuprofen 400 mg oral tablet 400 mg, 1, tablet, By Mouth, 2 times a day, PRN, # 30 tablet, Refills 0, Tot. Refills 0, Maintenance, Pain , Moderate, 10/07/19 14:41:00 EST, Route to Pharmacy Electronically, [place], [place] -, 162.5, cm, 10/07/19 14:20:00 EST, [facility]... Start Date: 10/07/19 Status: Ordered metFORMIN 500 mg oral tablet 1 tablet = 500 mg, By Mouth, 2 times a day, # 60 tablet, 11 Refills, Maintenance, 12/16/17 12:12:09EDT, Tablet Start Date: 12/16/17 Stop Date: 12/11/18 Status: Ordered omeprazole 20 mg oral enteric coated capsule 1 capsule = 20 mg, By Mouth, Daily, # 30 capsule, 1 Refills, Maintenance, 10/07/19 14:36:00 EST, ECCapsule, [place], [place] -, 162.5, cm, 10/07/19 14:20:00 EST, Height, 109.5, kg, 10/20/18 21:30:00 EST, Dry Weight Start Date: 10/07/19 Status: Ordered Wellbutrin SR 150 mg/12 hours [...] Effective Dates Status Health Status Inform ant Allergic rhinitis(Confirmed) 05/10/09 Active Bipolar disorder, curr episo de depressed, severe, w/psychotic features(Confirmed) 05/10/09 Active Dyspepsia(Confirmed) Active Insomnia(Confirmed) 02/22/09 Active Migraine headache(Confirmed) Active 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) 10/29/10 Active PCOS - Polycystic ovarian syndrome(Confirmed) 05/02/09 Active Seasonal affective disorder(Confirmed) Active Diagnosis Diagnosis Type Effective Dates Health Status Clinical Service Informant Pharyngitis Discharge Diagnosis 10/07/19 GERD (gastroesophageal reflux disease) Discharge Diagnosis 10/07/19 Vital Signs Most recent to oldest [Reference Range]: 1 Height 162.5 cm (10/07/19 2:20 PM) Weight 107.3 kg (10/07/19 2:20 PM) Oxygen Saturation [94-100 %] 95 % (10/07/19 2:20 PM) Pulse Rate [55-90 bpm] 81 bpm (10/07/19 2:20 PM) Body Mass Index [18.5-24.99] 40.63 *>HHI* (10/07/19 2:20 PM) Blood Pressure [90-138/55-84 mm Hg] 98/6 4mm Hg (10/07/19 2:20 PM) Temperature [96.8-100.4 DegF] 98 DegF (10/07/19 2:20 PM) Blood pressure sites Arm, left (10/07/19 2:20 PM) Temperature Route Oral (10/07/19 2:20 PM) Weight Obtained Via Standing scale (10/07/19 2:20 PM) Social History Social History Type Response Smoking Status Former smoker; Type: Cigarettes; Other: quit 4 years ago; entered on: 10/28/17 Sex
--- OUTSIDE RECORDS SUMMARY | 2023-07-28 03:57 | XMS_ITS | Continuity of Care Document ---
Author Name Unknown Organization [facility] Adult Address [address] [place] [address]- Care Team Providers Care Hammer Operator Name Role Phone Not on Staff, PCP Primary Care Physician Unavail able Encounter [facility] Date(s): 11/13/21 - 12/13/[address] [facility] Adult [address] [place] [id number] Allergies, Adverse Reactions, Alerts Substance Reaction [...] Route to Pharmacy Electronically, [facility], 162.5, cm, 01/15/21 9:10:00 EDT, [...] 3 Refills, Maintenance, 09/13/20 13:21:00 EST, Tablet, [facility] [place], [place] - [id number], 162.5, cm, 09/01/20 7:39:00 EST, Height, 109.5, [...]
--- OUTSIDE RECORDS SUMMARY | 2023-07-28 03:57 | XMS_ITS | Continuity of Care Document ---
Author Name Unknown Organization [facility] Adult Address [address] [place] [address]- Care Team Providers Care Desizing Machine Operator Head End Name Role Phone Katie NOVOA, [facility]kettering [facility] Primary Care Physician [place] [facility] [place]): [place] 05/10/21 [facility] Adult [address] [place] [address]- Encounter Diagnosis Bipolar disorder(Discharge Diagnosis) - 05/03/21 Attending Physician: Not on Staff, Attending MD Allergies, Adverse Reactions, Alerts Substance Reaction [...] 15 tablet, 0 Refills, Maintenance,05/04/21 9:36:00 EDT, [facility] [id number], 162.5, cm, 05/03/21 13:05:00 EDT, Height Start Date: 05/04/21 Status: Ordered ibuprofen 400 mg oral tablet 1, tablet, By Mouth, 2 times a day, PRN, # 60 tablet, Refills 1, Tot. Refills 0, Acute, NEEDED FOR MODERATE PAIN, 02/26/21 11:05:00 EDT, Route to Pharmacy Electronically, [facility], 162.5, cm, 01/15/21 9:10:00 EDT, Height [...] 3 Refills, Maintenance, 09/13/20 13:21:00 EST, Tablet, [place], [place] - [id number], 162.5, cm, 09/01/20 7:39:00 EST, Height, 109.5, kg, 10/20/18 21:30:00 EST, Dry Weight Start Date: 09/13/20 Stop Date: 09/08/21 Status: Ordered Problem List Condition Effective Dates Status Health Status Inform ant Bipolar disorder(Confirmed) Active Migraine headache(Confirmed) Active PCOS - Polycystic ovarian syndrome(Confirmed) 05/02/09 Active Prediabetes(Confirmed) Active Diagnosis Diagnosis Type Effective Dates Health Status inical Service Informant Bipolar disorder Discharge Diagnosis 05/03/21 Vital Signs Most recent to oldest [Reference Range]: 1 Height 162.5 cm (05/03/21 1:05 PM) Social History Social History Type Response Smoking Status 5-9 cigarettes (betw een 1/4 to 1/2 pack)/day in last 30 days entered on: 12/05/20 Sex
--- OUTSIDE RECORDS SUMMARY | 2023-07-28 03:57 | XMS_ITS | Continuity of Care Document ---
Author Name Unknown Organization [facility] Adult Address [address] [place] [address]- Care Team Providers Care Rail Car Welder Name Role Phone Alanis Wilson MD Primary Care Physician En[place] [facility] [place] Date(s): 09/07/21 - 09/14/21 [facility] Adult [address] [place] [address]- Attending Physician: Alanis Wilson MD Allergies, Adverse [...] 02/26/21 11:05:00 EDT, Route to Pharmacy Electronically, [facility], 162.5, cm, 01/15/21 9:10:00 EDT, [...] 3 Refills, Maintenance, 09/13/20 13:21:00 EST, Tablet, [facility] [place], [place] - [id number], 162.5, cm, 09/01/20 7:39:00 EST, Height, 109.5, kg, 10/20/18 21:30:00 EST, Dry Weight Start Date: 09/13/20 Stop Date: 09/08/21 Status: Ordered Problem List Condition Effective Dates Status Health Status Inform ant Bipolar disorder(Confirmed) Active Migraine headache(Confirmed) Active PCOS - Polycystic ovarian syndrome(Confirmed) 05/02/09 Active Prediabetes(Confirmed) Active Vital Signs Most recent to oldest [Reference Range]: 1 Height 162 cm (09/07/21 8:47 AM) Weight Obtained Via Patient/family state d (09/07/21 8:47 AM) Social History Social History Type Response Smoking Status 5-9 cigarettes (betw een 1/4 to 1/2 pack)/day in last 30 days entered on: 12/05/20 Sex
--- OUTSIDE RECORDS SUMMARY | 2023-07-28 03:57 | XMS_ITS | Continuity of Care Document ---
Author Name Unknown Organization [facility] Adult Address [address] [place] [address]- Care Team Providers Care Medical Health Researcher Name Role Phone Katie NOVOA, [facility] Primary Care Physician Encounter [facility] [place] Date(s): 09/05/21 - 10/05/[address] [address]- Allergies, Adverse Reactions, Alerts Substance Reaction Severity [...] 02/26/21 11:05:00 EDT, Route to Pharmacy Electronically, [facility], 162.5, cm, 01/15/21 9:10:00 [...] 3 Refills, Maintenance, 09/13/20 13:21:00 EST, Tablet, [facility] - [place], [place] - [id number], 162.5, cm, 09/01/20 7:39:00 EST, Height, 109.5, [...]
--- OUTSIDE RECORDS SUMMARY | 2023-07-28 03:57 | XMS_ITS | Continuity of Care Document ---
Author Name Unknown Organization [facility] Adult Address [address] [place] [address]- Care Team Providers Care Rib Stiffener And Heel Dipper Name Role Phone Not on Staff, PCP Primary Care Physician Unavail able Encounter [facility] Date(s): 10/02/21 - 12/05/21 [facility] Adult [address] [place] [id number] Attending Physician: Katie NOVOA, Alanis Allergies, Adverse Reactions, Alerts Substance Reaction Severity [...] 02/26/21 11:05:00 EDT, Route to Pharmacy Electronically, [facility], 162.5, cm, 01/15/21 9:10:00 EDT, [...] 3 Refills, Maintenance, 09/13/20 13:21:00 EST, Tablet, [facility] - [place], [place] - [id number], 162.5, cm, 09/01/20 7:39:00 EST, Height, 109.5, [...]
--- OUTSIDE RECORDS SUMMARY | 2023-07-28 03:57 | XMS_ITS | Continuity of Care Document ---
Author Name Unknown Organization [facility] Adult Address [address] [place] [address]- Care Team Providers Care Visual Arts Teacher Name Role Phone Katie NOVOA, Alanis Primary Care Physician [place] [facility] [place] 09/07/20 [facility] Adult [address] [place] [address]- Attending Physician: Alanis Wilson MD Allergies, Adverse [...] 30 tablet, 0 Refills, Maintenance,08/24/20 17:36:00 EST, [facility] #[id number], 162.5, cm, 08/01/20 15:54:00 EST, Height, 109.5, kg, 10/20/18 21:30:00 EST, Dry Weight Start Date: 08/24/20 Status: Ordered ibuprofen 400 mg oral tablet 400 mg, 1, tablet, By Mouth, 2 times a day, PRN, # 90 tablet, Refills 1, Tot. Refills 1, Maintenance, Pain , Moderate, 02/09/20 11:30:00 EDT, Route to Pharmacy Electronically, [place], [place] -, 162.5, cm, 01/24/20 9:06:00 EDT, [facility] Start Date: 02/09/20 Status: Ordered omeprazole 20 mg oral enteric coated capsule 1 capsule = 20 mg, By Mouth, Daily, # 30 capsule, 2 Refills, Maintenance, 05/04/20 9:38:00 EDT, EC Capsule, [facility] #[id number], 162.5, cm, 04/27/20 11:13:00 EDT, Height, 109.5, [...]
--- OUTSIDE RECORDS SUMMARY | 2023-07-28 03:57 | XMS_ITS | Continuity of Care Document ---
Author Name Unknown Organization [facility] Adult Address [address] [place] [address]- Care Team Providers Care Rhic Systems Safety Engineer Name Role Phone Alanis Wilson MD Primary Care Physician [place] [facility] [place] [facility] [place] 03/27/20 - 04/26/20 [facility] Adult [address] [place] [address] [facility] Allergies, Adverse Reactions, Alerts Substance Reaction [...] 30 tablet, 0 Refills, Maintenance,11/24/19 12:57:00 EDT, [place], [place] -, 162.5, cm, 10/07/19 14:20:00 EST, [...] 08/10/19 13:50:44 EST, Route to Pharmacy Electronically, [place], [place] -, 162.5, cm, 04/07/19 11:09:30 EDT, Height, 109.5, kg, 10/20/18... Start Date: 08/10/19 Status: Ordered ibuprofen 400 mg oral tablet 400 mg, 1, tablet, By Mouth, 2 times a day, PRN, # 90 tablet, Refills 1, Tot. Refills 1, Maintenance, Pain , Moderate, 02/09/20 11:30:00 EDT, Route to Pharmacy Electronically, [place], [place] -, 162.5, cm, 01/24/20 9:06:00 EDT, [facility]... Start Date: 02/09/20 Status: Ordered MetFORMIN (Eqv-Glucophage XR) 500 mg oral tablet, extended release 1 tablet = 500 mg, By Mouth, Daily, # 90 tablet, 3 Refills, Maintenance, 01/26/20 22:25:00 EDT, [place], [place] -, 162.5, cm, 01/24/20 9:06:00 EDT, [...] Refills, Maintenance, 01/26/20 22:22:00 EDT, ER Tablet, [place], [place] -, 162.5, cm, 01/24/20 9:06:00 EDT, Height, 109.5, kg, 10/20/18 21:30:00 EST, Dry Weight Start Date: 01/26/20 Status: Ordered omeprazole 20 mg oral enteric coated capsule 1 capsule = 20 mg, By Mouth, Daily, # 30 capsule, 2 Refills, Maintenance, 01/21/20 11:11:00 EDT, [facility], [place], [place] -, 162.5, cm, 01/13/20 11:04:00 EDT, Height, 109.5, kg, 10/20/18 21:30:00 EST, Dry Weight Start Date: 01/21/20 Status: Ordered sertraline 100 mg oral tablet 1 tablet = 100 mg, By Mouth, Daily, # 7 tablet, 0 Refills, Maintenance, 04/07/20 13:06:00 EDT, [facility] #[id number], 162.5, cm, 04/07/20 10:29:00 EDT, Height, 109.5, kg, 10/20/18 21:30:00 EST,Dry Weight Start Date: 04/07/20 Stop Date: 04/14/20 Status: Ordered sertraline 100 mg oral tablet 1.5 tablet = 150 mg, By Mouth, Daily, # 45 tablet, 0 Refills, Maintenance, 04/14/20 13:10:00 EDT, [facility] #[id number], 162.5, cm, 04/07/20 10:29:00 EDT, Height, 109.5, [...]
--- OUTSIDE RECORDS SUMMARY | 2023-07-28 03:57 | XMS_ITS | Continuity of Care Document ---
Author Name Unknown Organization [facility] Adult Address [address] [place] [address]- Care Team Providers Care Computer Lab Para Professional Name Role Phone Katie NOVOA, Alanis Primary Care Physician [place] [facility] [place] 09/11/21 - 10/11/[address] [address]- Allergies, Adverse Reactions, Alerts Substance Reaction Severity [...] 02/26/21 11:05:00 EDT, Route to Pharmacy Electronically, [facility], 162.5, cm, 01/15/21 9:10:00 EDT, [...] Refills, Maintenance, 09/13/20 13:21:00 EST, Tablet, [facility] [place], [place] - [id number], 162.5, cm, 09/01/20 7:39:00 EST, Height, 109.5, [...]
--- OUTSIDE RECORDS SUMMARY | 2023-07-28 03:57 | XMS_ITS | Continuity of Care Document ---
Author Name Unknown Organization [facility] Adult Address [address] [place] [address]- Care Team Providers Care Field Evidence Technician Name Role Phone Alanis Wilson MD Primary Care Physician [phone] Encounter [facility] [place] Date(s): 11/13/20 - 12/13/20 [facility] Adult [address] [place] [address]- Allergies, Adverse Reactions, Alerts Substance Reaction Severity [...] 30 tablet, 0 Refills, Maintenance,08/24/20 17:36:00 EST, [facility] #[id number], 162.5, cm, 08/01/20 15:54:00 EST, Height, 109.5, kg, 10/20/18 21:30:00 EST, Dry Weight Start Date: 08/24/20 Status: Ordered ibuprofen 400 mg oral tablet 400 mg, 1, tablet, By Mouth, 2 times a day, PRN, # 90 tablet, Refills 1, Tot. Refills 1, Maintenance, Pain , Moderate, 02/09/20 11:30:00 EDT, Route to Pharmacy Electronically, [place], [place] -, 162.5, cm, 01/24/20 9:06:00 EDT, .. Start Date: 02/09/20 Status: Ordered omeprazole 20 mg oral enteric coated capsule 1 capsule = 20 mg, By Mouth, Daily, # 30 capsule, 2 Refills, Maintenance, 10/04/20 14:06:00 EST, ECCapsule, [facility] #[id number], 162.5, cm, 09/01/20 7:39:00 EST, Height, 109.5, kg, 10/20/18 21:30:00 EST, Dry Weight Start Date: 10/04/20 Status: Ordered ZyrTEC 10 mg oral tablet 1 tablet = 10 mg, By Mouth, Daily, # 90 tablet, 3 Refills, Maintenance, 09/13/20 13:21:00 EST, Tablet, [place], [place] - [id number], 162.5, cm, 09/01/20 7:39:00 EST, Height, 109.5, [...]
--- OUTSIDE RECORDS SUMMARY | 2023-07-28 03:57 | XMS_ITS | Continuity of Care Document ---
Author Name Unknown Organization [facility] Adult Address [address] [place] [address]- Care Team Providers Care Break Off Worker Name Role Phone Katie NOVOA, [facility] Primary Care Physician [phone] En[place] [facility] [place] Date(s): 09/05/21 - 10/05/[address] [address]- Allergies, Adverse Reactions, Alerts Substance Reaction Severity [...] 02/26/21 11:05:00 EDT, Route to Pharmacy Electronically, [facility], 162.5, cm, 01/15/21 9:10:00 [...] 3 Refills, Maintenance, 09/13/20 13:21:00 EST, Tablet, [facility] [place], [place] - [id number], 162.5, cm, 09/01/20 7:39:00 EST, Height, 109.5, [...]
--- OUTSIDE RECORDS SUMMARY | 2023-07-28 03:57 | XMS_ITS | Continuity of Care Document ---
Author Name Unknown Organization [facility] Adult Address [address] [place] [address]- Care Team Providers Care Cataloging Assistant Name Role Phone Alanis Wilson MD Primary Care Physician En[place] [facility] [place](s): 10/06/20 - 11/05/20 [facility] Adult [address] [place] [address]- Allergies, Adverse Reactions, Alerts Substance Reaction Severity [...] 30 tablet, 0 Refills, Maintenance,08/24/20 17:36:00 EST, [facility] #[id number], 162.5, cm, 08/01/20 15:54:00 EST, Height, 109.5, kg, 10/20/18 21:30:00 EST, Dry Weight Start Date: 08/24/20 Status: Ordered ibuprofen 400 mg oral tablet 400 mg, 1, tablet, By Mouth, 2 times a day, PRN, # 90 tablet, Refills 1, Tot. Refills 1, Maintenance, Pain , Moderate, 02/09/20 11:30:00 EDT, Route to Pharmacy Electronically, [place], [place] -, 162.5, cm, 01/24/20 9:06:00 EDT, [facility]. Start Date: 02/09/20 Status: Ordered omeprazole 20 mg oral enteric coated capsule 1 capsule = 20 mg, By Mouth, Daily, # 30 capsule, 2 Refills, Maintenance, 10/04/20 14:06:00 EST, ECCapsule, [facility] #[id number], 162.5, cm, 09/01/20 7:39:00 EST, Height, 109.5, kg, 10/20/18 21:30:00 EST, Dry Weight Start Date: 10/04/20 Status: Ordered ZyrTEC 10 mg oral tablet 1 tablet = 10 mg, By Mouth, Daily, # 90 tablet, 3 Refills, Maintenance, 09/13/20 13:21:00 EST, Tablet, [place], [place] - [id number], 162.5, cm, 09/01/20 7:39:00 EST, Height, 109.5, [...]
--- OUTSIDE RECORDS SUMMARY | 2023-07-28 03:57 | XMS_ITS | Continuity of Care Document ---
Author Name Unknown Organization [facility] Adult Address [address] [place] [address]- Care Team Providers Care Materials Specialist Name Role Phone Alanis Wilson MD Primary Care Physician [place] [facility] [place] 06/21/20 [facility] Adult [address] [place] [address]- [facility] Allergies, Adverse Reactions, Alerts Substance Reaction [...] 30 tablet, 0 Refills, Maintenance,11/24/19 12:57:00 EDT, [place], [place] -, 162.5, cm, 10/07/19 14:20:00 EST, [...] 08/10/19 13:50:44 EST, Route to Pharmacy Electronically, [place], [place] -, 162.5, cm, 04/07/19 11:09:30 EDT, Height, 109.5, kg, 10/20/18... Start Date: 08/10/19 Status: Ordered ibuprofen 400 mg oral tablet 400 mg, 1, tablet, By Mouth, 2 times a day, PRN, # 90 tablet, Refills 1, Tot. Refills 1, Maintenance, Pain , Moderate, 02/09/20 11:30:00 EDT, Route to Pharmacy Electronically, [place], [place] -, 162.5, cm, 01/24/20 9:06:00 EDT, [facility]... Start Date: 02/09/20 Status: Ordered MetFORMIN (Eqv-Glucophage XR) 500 mg oral tablet, extended release 1 tablet = 500 mg, By Mouth, Daily, # 90 tablet, 3 Refills, Maintenance, 01/26/20 22:25:00 EDT, [place], [place] -, 162.5, cm, 01/24/20 9:06:00 EDT, [...] Refills, Maintenance, 01/26/20 22:22:00 EDT, ER Tablet, [place], [place] -, 162.5, cm, 01/24/20 9:06:00 EDT, Height, 109.5, kg, 10/20/18 21:30:00 EST, Dry Weight Start Date: 01/26/20 Status: Ordered omeprazole 20 mg oral enteric coated capsule 1 capsule = 20 mg, By Mouth, Daily, # 30 capsule, 2 Refills, Maintenance, 05/04/20 9:38:00 EDT, EC Capsule, [facility] #[id number], 162.5, cm, 04/27/20 11:13:00 EDT, Height, 109.5, kg, 10/20/18 21:30:00 EST, Dry Weight Start Date: 05/04/20 Status: Ordered sertraline 100 mg oral tablet 1 tablet = 100 mg, By Mouth, Daily, # 7 tablet, 0 Refills, Maintenance, 04/07/20 13:06:00 EDT, [facility] #[id number], 162.5, cm, 04/07/20 10:29:00 EDT, Height, 109.5, kg, 10/20/18 21:30:00 EST,Dry Weight Start Date: 04/07/20 Stop Date: 04/14/20 Status: Ordered sertraline 100 mg oral tablet 1.5 tablet = 150 mg, By Mouth, Daily, # 45 tablet, 0 Refills, Maintenance, 04/14/20 13:10:00 EDT, [facility] #[id number], 162.5, cm, 04/07/20 10:29:00 EDT, Height, 109.5, [...]
--- OUTSIDE RECORDS SUMMARY | 2023-07-28 03:57 | XMS_ITS | Continuity of Care Document ---
Author Name Unknown Organization [facility] Adult Address [address] [place] [address]- Care Team Providers Care Juvenile Court Judge Name Role Phone Katie NOVOA, Alanis Primary Care Physician [phone] Encounter [facility] Date(s): 02/21/21 - 03/23/21 [facility] Adult [address] [place] [address]- Allergies, Adverse Reactions, Alerts Substance Reaction Severity [...] 30 tablet, 0 Refills, Maintenance,08/24/20 17:36:00 EST, [facility] #[id number], 162.5, cm, 08/01/20 15:54:00 EST, Height, 109.5, kg, 10/20/18 21:30:00 EST, Dry Weight Start Date: 08/24/20 Status: Ordered ibuprofen 400 mg oral tablet 1, tablet, By Mouth, 2 times a day, PRN, # 60 tablet, Refills 1, Tot. Refills 0, Acute, NEEDED FOR MODERATE PAIN, 02/26/21 11:05:00 EDT, Route to Pharmacy Electronically, [facility], 162.5, cm, 01/15/21 9:10:00 EDT, Height Start Date: 02/26/21 Status: Ordered omeprazole 20 mg oral enteric coated capsule 1 capsule, By Mouth, Daily, # 30 capsule, 2 Refills, Maintenance, 02/26/21 11:05:00 EDT, [facility], 162.5, cm, 01/15/21 9:10:00 EDT, Height Start Date: 02/26/21 Status: Ordered ZyrTEC 10 mg oral tablet 1 tablet = 10 mg, By Mouth, Daily, # 90 tablet, 3 Refills, Maintenance, 09/13/20 13:21:00 EST, Tablet, [facility] [place], [place] - [id number], 162.5, cm, 09/01/20 7:39:00 EST, Height, 109.5, [...]
--- OUTSIDE RECORDS SUMMARY | 2023-07-28 03:57 | XMS_ITS | Continuity of Care Document ---
Author Name Unknown Organization [facility] Adult Address [address] [place] [address]- Care Team Providers Care Security System Technician Name Role Phone Katie NOVOA, Alanis Primary Care Physician [phone] Encounter [facility] Date(s): 10/11/21 - 11/10/21 [facility] Adult [address] [place] [address]- Allergies, Adverse Reactions, Alerts Substance Reaction Severity [...] 02/26/21 11:05:00 EDT, Route to Pharmacy Electronically, [facility], 162.5, cm, 01/15/21 9:10:00 EDT, [...] Refills, Maintenance, 09/13/20 13:21:00 EST, Tablet, [facility] - [place], [place] - [id number], 162.5, cm, 09/01/20 7:39:00 EST, Height, 109.5, [...]
--- OUTSIDE RECORDS SUMMARY | 2023-07-28 03:57 | XMS_ITS | Continuity of Care Document ---
Author Name Unknown Organization [facility] ter Address [address] [place] [address]- Care Team Providers Care Assistant To The Vice President Name Role Phone Alanis Wilson MD Primary Care Physician [phone] En[place] [facility] [place] Date(s): 05/13/21 - 08/12/[address] [address] Attending Physician: Stevan ABRAHAM, Sharona Brock Admitting Physician: Stevan ABRAHAM, Sharona Brock Referring Physician: Stevan ABRAHAM, Sharona Brock Allergies, Adverse Reactions, Alerts Substance Reaction Severity [...] 02/26/21 11:05:00 EDT, Route to Pharmacy Electronically, [facility], 162.5, cm, 01/15/21 9:10:00 EDT, [...] 3 Refills, Maintenance, 09/13/20 13:21:00 EST, Tablet, [facility] [place], [place] - [id number], 162.5, cm, 09/01/20 7:39:00 EST, Height, 109.5, [...]
--- OUTSIDE RECORDS SUMMARY | 2023-07-28 03:57 | XMS_ITS | Continuity of Care Document ---
Author Name Unknown Organization [facility] ter Address [address] [place] [address]- Care Team Providers Care Rib Cloth Knitter Name Role Phone Alanis Wilson MD Primary Care Physician [phone] Encounter [facility] Date(s): 10/07/19 - 10/07/[address] [address]- [facility] Attending Physician: Alanis Wilson MD Allergies, Adverse [...] 12/11/18 17:10:41 EDT, Route to Pharmacy Electronically, [id number], [facility] Start Date: 12/11/18 Stop Date: 12/06/19 [...] 08/10/19 13:50:44 EST, Route to Pharmacy Electronically, [place], [place] -, 162.5, cm, 04/07/19 11:09:30 EDT, Height, 109.5, kg, 10/20/18... Start Date: 08/10/19 Status: Ordered ibuprofen 400 mg oral tablet 400 mg, 1, tablet, By Mouth, 2 times a day, PRN, # 30 tablet, Refills 0, Tot. Refills 0, Maintenance, Pain , Moderate, 10/07/19 14:41:00 EST, Route to Pharmacy Electronically, [place], [place] -, 162.5, cm, 10/07/19 14:20:00 EST, [...] 1 Refills, Maintenance, 10/07/19 14:36:00 EST, ECCapsule, [place], [place] -, 162.5, cm, 10/07/19 14:20:00 EST, [...] syndrome(Confirmed) 05/02/09 Active Seasonal affective disorder(Confirmed) Active Social History Social History Type Response Smoking Status Former smoker; Type: Cigarettes; Other: quit 4 years ago; entered on: 10/28/17 Sex
--- OUTSIDE RECORDS SUMMARY | 2023-07-28 03:57 | XMS_ITS | Continuity of Care Document ---
Author Name Unknown Organization [facility] Adult Address [address] [place] [address]- Care Team Providers Care Rendering Equipment Tender Name Role Phone Alanis Wilson MD Primary Care Physician En[place] [facility] [place](s): 10/04/20 - 11/03/20 [facility] Adult [address] [place] [address]- Allergies, Adverse Reactions, Alerts Substance Reaction Severity [...] 30 tablet, 0 Refills, Maintenance,08/24/20 17:36:00 EST, [facility] #[id number], 162.5, cm, 08/01/20 15:54:00 EST, Height, 109.5, kg, 10/20/18 21:30:00 EST, Dry Weight Start Date: 08/24/20 Status: Ordered ibuprofen 400 mg oral tablet 400 mg, 1, tablet, By Mouth, 2 times a day, PRN, # 90 tablet, Refills 1, Tot. Refills 1, Maintenance, Pain , Moderate, 02/09/20 11:30:00 EDT, Route to Pharmacy Electronically, [place], [place] -, 162.5, cm, 01/24/20 9:06:00 EDT, [facility]. Start Date: 02/09/20 Status: Ordered omeprazole 20 mg oral enteric coated capsule 1 capsule = 20 mg, By Mouth, Daily, # 30 capsule, 2 Refills, Maintenance, 10/04/20 14:06:00 EST, ECCapsule, [facility] #[id number], 162.5, cm, 09/01/20 7:39:00 EST, Height, 109.5, kg, 10/20/18 21:30:00 EST, Dry Weight Start Date: 10/04/20 Status: Ordered ZyrTEC 10 mg oral tablet 1 tablet = 10 mg, By Mouth, Daily, # 90 tablet, 3 Refills, Maintenance, 09/13/20 13:21:00 EST, Tablet, [place], [place] - [id number], 162.5, cm, 09/01/20 7:39:00 EST, Height, 109.5, [...]
--- OUTSIDE RECORDS SUMMARY | 2023-07-28 03:57 | XMS_ITS | Continuity of Care Document ---
Author Name Unknown Organization [facility] Adult Address [address] [place] [address]- Care Team Providers Care Transportation Manager Name Role Phone Katie NOVOA, Alanis Primary Care Physician [phone] [place] [facility] [place](s): 09/20/21 - 10/20/[address] [address]- Allergies, Adverse Reactions, Alerts Substance Reaction Severity [...] 02/26/21 11:05:00 EDT, Route to Pharmacy Electronically, [facility], 162.5, cm, 01/15/21 9:10:00 [...] 3 Refills, Maintenance, 09/13/20 13:21:00 EST, Tablet, [facility] [place], [place] - [id number], 162.5, cm, 09/01/20 7:39:00 EST, Height, 109.5, [...]
--- OUTSIDE RECORDS SUMMARY | 2023-07-28 03:57 | XMS_ITS | Continuity of Care Document ---
Author Name Unknown Organization [facility] Adult Address [address] [place] [address]- Care Team Providers Care Staff Nuclear Medicine Technologist Name Role Phone Katie NOVOA, Alanis Primary Care Physician [place] [facility] [place]s): 08/19/20 - 12/17/20 [facility] Adult [address] [place] [address]- Attending Physician: Alanis Wilson MD Allergies, Adverse [...] 30 tablet, 0 Refills, Maintenance,08/24/20 17:36:00 EST, [facility] #[id number], 162.5, cm, 08/01/20 15:54:00 EST, Height, 109.5, kg, 10/20/18 21:30:00 EST, Dry Weight Start Date: 08/24/20 Status: Ordered ibuprofen 400 mg oral tablet 400 mg, 1, tablet, By Mouth, 2 times a day, PRN, # 90 tablet, Refills 1, Tot. Refills 1, Maintenance, Pain , Moderate, 02/09/20 11:30:00 EDT, Route to Pharmacy Electronically, [place], [place] -, 162.5, cm, 01/24/20 9:06:00 EDT, [facility]. Start Date: 02/09/20 Status: Ordered omeprazole 20 mg oral enteric coated capsule 1 capsule = 20 mg, By Mouth, Daily, # 30 capsule, 2 Refills, Maintenance, 10/04/20 14:06:00 EST, ECCapsule, [facility] #[id number], 162.5, cm, 09/01/20 7:39:00 EST, Height, 109.5, kg, 10/20/18 21:30:00 EST, Dry Weight Start Date: 10/04/20 Status: Ordered ZyrTEC 10 mg oral tablet 1 tablet = 10 mg, By Mouth, Daily, # 90 tablet, 3 Refills, Maintenance, 09/13/20 13:21:00 EST, Tablet, [place], [place] - [id number], 162.5, cm, 09/01/20 7:39:00 EST, Height, 109.5, [...]
--- OUTSIDE RECORDS SUMMARY | 2023-07-28 03:57 | XMS_ITS | Continuity of Care Document ---
Author Name Unknown Organization [facility] Adult Address [address] [place] [address]- Care Team Providers Care Turf Farmer Name Role Phone Alanis Wilson MD Primary Care Physician [place] [facility] [place] 11/13/20 - 12/13/20 [facility] Adult [address] [place] [address]- Allergies, Adverse Reactions, Alerts Substance Reaction Severity [...] 30 tablet, 0 Refills, Maintenance,08/24/20 17:36:00 EST, [facility] #[id number], 162.5, cm, 08/01/20 15:54:00 EST, Height, 109.5, kg, 10/20/18 21:30:00 EST, Dry Weight Start Date: 08/24/20 Status: Ordered ibuprofen 400 mg oral tablet 400 mg, 1, tablet, By Mouth, 2 times a day, PRN, # 90 tablet, Refills 1, Tot. Refills 1, Maintenance, Pain , Moderate, 02/09/20 11:30:00 EDT, Route to Pharmacy Electronically, [place], [place] -, 162.5, cm, 01/24/20 9:06:00 EDT, .. Start Date: 02/09/20 Status: Ordered omeprazole 20 mg oral enteric coated capsule 1 capsule = 20 mg, By Mouth, Daily, # 30 capsule, 2 Refills, Maintenance, 10/04/20 14:06:00 EST, ECCapsule, [facility] #[id number], 162.5, cm, 09/01/20 7:39:00 EST, Height, 109.5, kg, 10/20/18 21:30:00 EST, Dry Weight Start Date: 10/04/20 Status: Ordered ZyrTEC 10 mg oral tablet 1 tablet = 10 mg, By Mouth, Daily, # 90 tablet, 3 Refills, Maintenance, 09/13/20 13:21:00 EST, Tablet, [place], [place] - [id number], 162.5, cm, 09/01/20 7:39:00 EST, Height, 109.5, [...]
--- OUTSIDE RECORDS SUMMARY | 2023-07-28 03:57 | XMS_ITS | Continuity of Care Document ---
Author Name Unknown Organization [facility] Adult Address [address] [place] [address]- Care Team Providers Care Formula Room Worker Name Role Phone Katie NOVOA, Alanis Primary Care Physician En[place] [facility] [place](s): 06/21/21 - 06/28/[address] [address]- Encounter Diagnosis Pain and swelling of right ankle(Discharge Diagnosis) - 06/24/21 Bipolar disorder(Discharge Diagnosis) - 06/24/21 Attending Physician: Alanis Wilson MD Allergies, Adverse [...] 02/26/21 11:05:00 EDT, Route to Pharmacy Electronically, [facility], 162.5, cm, 01/15/21 9:10:00 [...] 3 Refills, Maintenance, 09/13/20 13:21:00 EST, Tablet, [facility] - [place], [place] - [id number], 162.5, cm, 09/01/20 7:39:00 EST, Height, 109.5, kg, 10/20/18 21:30:00 EST, Dry Weight Start Date: 09/13/20 Stop Date: 09/08/21 Status: Ordered Problem List Condition Effective Dates Status Health Status Inform ant Bipolar disorder(Confirmed) Active Migraine headache(Confirmed) Active PCOS - Polycystic ovarian syndrome(Confirmed) 05/02/09 Active Prediabetes(Confirmed) Active Diagnosis Diagnosis Type Effective Dates Health Status Cl inical Service Informant Pain and swelling of right ankle Discharge Diagnosis 06/24/21 Bipolar disorder Discharge Diagnosis 06/24/21 Vital Signs Most recent to oldest [Reference Range]: 1 Height 162 cm (06/21/21 9:27 AM) Weight 93.44 kg (06/21/21 9:27 AM) Body Mass Index [18.5-24.99] 35.6 *>HHI* (06/21/21 9:27 AM) Weight Obtained Via Patient/family state d (06/21/21 9:27 AM) Social History Social History Type Response Smoking Status 5-9 cigarettes (betw een 1/4 to 1/2 pack)/day in last 30 days entered on: 12/05/20 Sex
--- OUTSIDE RECORDS SUMMARY | 2023-07-28 03:57 | XMS_ITS | Continuity of Care Document ---
Author Name Unknown Organization [facility] Adult Address [address] [place] [address]- Care Team Providers Care Tack Puller Machine Name Role Phone Not on Staff, PCP Primary Care Physician Unavail able Encounter [facility] Date(s): 11/07/21 - 12/07/[address] [facility] Adult [address] [place] [address] Allergies, Adverse Reactions, Alerts Substance Reaction [...] 02/26/21 11:05:00 EDT, Route to Pharmacy Electronically, [facility], 162.5, cm, 01/15/21 9:10:00 EDT, [...] 3 Refills, Maintenance, 09/13/20 13:21:00 EST, Tablet, [facility] [place], [place] - [id number], 162.5, cm, 09/01/20 7:39:00 EST, Height, 109.5, [...]
--- OUTSIDE RECORDS SUMMARY | 2023-07-28 03:57 | XMS_ITS | Continuity of Care Document ---
Author Name Unknown Organization [facility] Adult Address [address] [place] [address]- Care Team Providers Care Deflector Operator Name Role Phone Alanis Wilson MD Primary Care Physician [phone] En[place] [facility] [place] Date(s): 08/19/20 - 09/18/20 [facility] Adult [address] [place] [address]- Allergies, Adverse Reactions, Alerts Substance Reaction Severity [...] 30 tablet, 0 Refills, Maintenance,08/24/20 17:36:00 EST, [id number], 162.5, cm, 08/01/20 15:54:00 EST, Height, 109.5, kg, 10/20/18 21:30:00 EST, Dry Weight Start Date: 08/24/20 Status: Ordered ibuprofen 400 mg oral tablet 400 mg, 1, tablet, By Mouth, 2 times a day, PRN, # 90 tablet, Refills 1, Tot. Refills 1, Maintenance, Pain , Moderate, 02/09/20 11:30:00 EDT, Route to Pharmacy Electronically, [place], [place] -, 162.5, cm, 01/24/20 9:06:00 EDT, [facility]... Start Date: 02/09/20 Status: Ordered omeprazole 20 mg oral enteric coated capsule 1 capsule = 20 mg, By Mouth, Daily, # 30 capsule, 2 Refills, Maintenance, 05/04/20 9:38:00 EDT, EC Capsule, [facility] #[id number], 162.5, cm, 04/27/20 11:13:00 EDT, Height, 109.5, kg, 10/20/18 21:30:00 EST, Dry Weight Start Date: 05/04/20 Status: Ordered ZyrTEC 10 mg oral tablet 1 tablet = 10 mg, By Mouth, Daily, # 90 tablet, 3 Refills, Maintenance, 09/13/20 13:21:00 EST, Tablet, [place], [place] - [id number], 162.5, cm, 09/01/20 7:39:00 EST, Height, 109.5, [...]
--- OUTSIDE RECORDS SUMMARY | 2023-07-28 03:57 | XMS_ITS | Continuity of Care Document ---
Author Name Unknown Organization [facility] Adult Address [address] [place] [address]- Care Team Providers Care General Merchandise Salesperson Name Role Phone Katie NOVOA, Alanis Primary Care Physician Encounter [facility] Date(s): 05/17/21 - 06/16/[address] [address]- Allergies, Adverse Reactions, Alerts Substance Reaction Severity [...] 06/18/21 11:15:00 EDT, 06/04/21 11:15:00 EDT, Capsule, [facility] #[id number], Partial fill upon patient request if the prescription is for a... Start Date: 06/04/21 Stop Date: 06/18/21 Status: Ordered ibuprofen 400 mg oral tablet 1, tablet, By Mouth, 2 times a day, PRN, # 60 tablet, Refills 1, Tot. Refills 0, Acute, NEEDED FOR MODERATE PAIN, 02/26/21 11:05:00 EDT, Route to Pharmacy Electronically, [facility], 162.5, cm, 01/15/21 9:10:00 EDT, [...] 3 Refills, Maintenance, 09/13/20 13:21:00 EST, Tablet, [facility] - [place], [place] - [id number], 162.5, cm, 09/01/20 7:39:00 EST, Height, 109.5, [...]
--- OUTSIDE RECORDS SUMMARY | 2023-07-28 03:57 | XMS_ITS | Continuity of Care Document ---
Author Name Unknown Organization [facility] Adult Address [address] [place] [address]- Care Team Providers Care Talent Advisor Name Role Phone Alanis Wilson MD Primary Care Physician En[place] [facility] [place](s): 04/25/21 - 05/25/21 [facility] Adult [address] [place] [address]- Allergies, Adverse Reactions, Alerts Substance Reaction Severity [...] Refills, Maintenance,05/04/21 9:36:00 EDT, [facility] [id number], 162.5, cm, 05/03/21 13:05:00 EDT, Height Start Date: 05/04/21 Status: Ordered ibuprofen 400 mg oral tablet 1, tablet, By Mouth, 2 times a day, PRN, # 60 tablet, Refills 1, Tot. Refills 0, Acute, NEEDED FOR MODERATE PAIN, 02/26/21 11:05:00 EDT, Route to Pharmacy Electronically, [facility], 162.5, cm, 01/15/21 9:10:00 EDT, Height [...] 3 Refills, Maintenance, 09/13/20 13:21:00 EST, Tablet, [facility], [place] - [id number], 162.5, cm, 09/01/20 7:39:00 EST, Height, 109.5, [...]
--- OUTSIDE RECORDS SUMMARY | 2023-07-28 03:58 | XMS_ITS | Continuity of Care Document ---
Author Name Unknown Organization [facility] ter Address [address] [place] [address]- Care Team Providers Care Textile Engraver Name Role Phone Katie NOVOA, Alanis Primary Care Physician Encounter [facility] Date(s): 01/24/21 - 03/29/[address] [address] Attending Physician: Gabriela Kumar NP Admitting Physician: Gabriela Kumar NP Referring Physician: Gabriela Kmuar NP Allergies, Adverse Reactions, Alerts Substance Reaction [...] 30 tablet, 0 Refills, Maintenance,08/24/20 17:36:00 EST, [facility] #[id number], 162.5, cm, 08/01/20 15:54:00 EST, Height, 109.5, kg, 10/20/18 21:30:00 EST, Dry Weight Start Date: 08/24/20 Status: Ordered ibuprofen 400 mg oral tablet 1, tablet, By Mouth, 2 times a day, PRN, # 60 tablet, Refills 1, Tot. Refills 0, Acute, NEEDED FOR MODERATE PAIN, 02/26/21 11:05:00 EDT, Route to Pharmacy Electronically, [facility], 162.5, cm, 01/15/21 9:10:00 EDT, Height Start Date: 02/26/21 Status: Ordered omeprazole 20 mg oral enteric coated capsule 1 capsule, By Mouth, Daily, # 30 capsule, 2 Refills, Maintenance, 02/26/21 11:05:00 EDT, [facility], 162.5, cm, 01/15/21 9:10:00 EDT, Height Start Date: 02/26/21 Status: Ordered ZyrTEC 10 mg oral tablet 1 tablet = 10 mg, By Mouth, Daily, # 90 tablet, 3 Refills, Maintenance, 09/13/20 13:21:00 EST, Tablet, [facility] [place], [place] - [id number], 162.5, cm, 09/01/20 7:39:00 EST, Height, 109.5, [...]
--- OUTSIDE RECORDS SUMMARY | 2023-07-28 03:58 | XMS_ITS | Continuity of Care Document ---
Author Name Unknown Organization [facility] ter Address [address] [place] [address]- Care Team Providers Care Foreign Language Instructor Name Role Phone Alanis Wilson MD Primary Care Physician Encounter [facility] Date(s): 09/04/21 - 09/04/[address] [address]- Discharge Disposition: A-D/C Walkout Attending Physician: Not [...] Maintenance, 09/13/20 13:21:00 EST, Tablet, [facility] - [place], [place] - [id number], 162.5, cm, 09/01/20 7:39:00 EST, Height, 109.5, kg, 10/20/18 21:30:00 EST, Dry Weight Start Date: 09/13/20 Stop Date: 09/08/21 Status: Ordered Problem List Condition Effective Dates Status Health Status Inform ant Bipolar disorder(Confirmed) Active Migraine headache(Confirmed) Active PCOS - Polycystic ovarian syndrome(Confirmed) 05/02/09 Active Prediabetes(Confirmed) Active Vital Signs Most recent to oldest [Reference Range]: 1 2 Oxygen Saturation [94-100 %] 100 % (09/04/21 11:05 AM) 100 % (09/04/21 10:58 AM) Pulse Rate [55-90 bpm] 110 bpm *H* (09/04/21 11:05 AM) 139 bpm *H* (09/04/21 10:58 AM) Blood Pressure [90-138/55-84 mm Hg] 145/ 83mm Hg *H* (09/04/21 11:05 AM) Respiratory Rate [16-30 br/min] 22 br/mi n (09/04/21 10:58 AM) Temperature [96.8-100.4 DegF] 97.3 DegF (09/04/21 11:05 AM) Mode of Delivery (Oxygen) Room air (09/04/21 10:58 AM) Blood pressure sites Arm, left (09/04/21 11:05 AM) Temperature Route Oral (09/04/21 11:05 AM) Social History Social History Type Response Smoking Status 5-9 cigarettes (betw een 1/4 to 1/2 pack)/day in last 30 days entered on: 12/05/20 Sex
--- OUTSIDE RECORDS SUMMARY | 2023-07-28 03:58 | XMS_ITS | Continuity of Care Document ---
Author Name Unknown Organization [facility] ter Address [address] [place] [address]- Care Team Providers Care Multi Operation Machine Operator Name Role Phone Franco Beard MD Primary Care Physician Encounter [facility] Date(s): 10/05/22 - 11/14/[address] [address] Attending Physician: Franco Beard MD Admitting Physician: Franco Beard MD Referring Physician: Franco Beard MD Allergies, Adverse Reactions, Alerts Substance Reaction [...] NEEDED FOR MODERATE PAIN, [facility], [facility], 162, cm, 10/02/21 11:18:00 EST, Height Start Date: 02/01/22 Status: Ordered LORazepam 0.5 mg oral tablet 1 tablet = 0.5 mg, By Mouth, Daily, PRN as needed for anxiety, # 15 tablet, 0 Refills, Maintenance,02/11/22 9:03:00 EDT, [place], [place] - [id number], 162, cm, 10/02/21 11:18:00 EST, Height Start [...] 10/24/22 13:13:00 EST, Route to Pharmacy Electronically, [id number], 162, cm, 09/25/22 8:57:00 EST, Height Start Date: 10/24/22 Status: Ordered sertraline 25 mg oral tablet 1 tablet = 25 mg, By Mouth, Daily, # 30 tablet, 2 Refills, Maintenance, 12/27/21 12:18:00 EDT, Tablet, [facility] #[id number], 162, cm, 10/02/21 11:18:00 EST, Height Start Date: 12/27/21 Status: Ordered ZyrTEC 10 mg oral tablet 1 tablet = 10 mg, By Mouth, Daily, # 90 tablet, 3 Refills, Maintenance, 09/13/20 13:21:00 EST, Tablet, [facility] [place], [place] - [id number], 162.5, cm, 09/01/20 7:39:00 EST, Height, 109.5, [...] obesity (BMI 35.0-39.9) with comorbidity Confirmed Active Social History Social History Type Response Smoking Status Former smoker, quit more than 30 days ago; Other: Quit 2020; entered on: 09/19/22 Sex Patient Care team information Care Team Personnel Name: Svetlana Akhtar MD Position: [facility] HOSE SUSPENDER CUTTER MD Member Role: Lifetime HOSE SUSPENDER CUTTER Physician Address: Address: [address] [place] [address] [facility], [place] [address]- Name: Franco Beard MD Position: [facility] Primary Care Physician Member Role: PCP Address: Address: [address] [place] [address], [address] [place] [address]- Care Team Related Persons Name: ARSH ELLSWORTH Address: [place] [address] Name: TAMERA SPENCER Address: home [address] [place] [address] Name: MELISSA EDWARDS Address: home [address] [place] [address]
--- OUTSIDE RECORDS SUMMARY | 2023-07-28 03:58 | XMS_ITS | Continuity of Care Document ---
Author Name Unknown Organization [facility] Adult Address [address] [place] [address]- Care Team Providers Care Him Clerk Name Role Phone Alanis Wilson MD Primary Care Physician Encounter [facility] Date(s): 11/09/20 - 12/09/20 [facility] Adult [address] [place] [address]- Allergies, Adverse Reactions, Alerts Substance Reaction Severity [...] 30 tablet, 0 Refills, Maintenance,08/24/20 17:36:00 EST, [facility] #[id number], 162.5, cm, 08/01/20 15:54:00 EST, Height, 109.5, kg, 10/20/18 21:30:00 EST, Dry Weight Start Date: 08/24/20 Status: Ordered ibuprofen 400 mg oral tablet 400 mg, 1, tablet, By Mouth, 2 times a day, PRN, # 90 tablet, Refills 1, Tot. Refills 1, Maintenance, Pain , Moderate, 02/09/20 11:30:00 EDT, Route to Pharmacy Electronically, [place], [place] -, 162.5, cm, 01/24/20 9:06:00 EDT, .. Start Date: 02/09/20 Status: Ordered omeprazole 20 mg oral enteric coated capsule 1 capsule = 20 mg, By Mouth, Daily, # 30 capsule, 2 Refills, Maintenance, 10/04/20 14:06:00 EST, ECCapsule, [facility] #[id number], 162.5, cm, 09/01/20 7:39:00 EST, Height, 109.5, kg, 10/20/18 21:30:00 EST, Dry Weight Start Date: 10/04/20 Status: Ordered ZyrTEC 10 mg oral tablet 1 tablet = 10 mg, By Mouth, Daily, # 90 tablet, 3 Refills, Maintenance, 09/13/20 13:21:00 EST, Tablet, [place], [place] - [id number], 162.5, cm, 09/01/20 7:39:00 EST, Height, 109.5, [...]
--- OUTSIDE RECORDS SUMMARY | 2023-07-28 03:58 | XMS_ITS | Continuity of Care Document ---
Author Name Unknown Organization [facility] Adult Address [address] [place] [address]- Care Team Providers Care Asphalt Heater Tender Name Role Phone Katie NOVOA, Alanis Primary Care Physician Encounter [facility] Date(s): 05/16/21 - 06/15/[address] [address]- Allergies, Adverse Reactions, Alerts Substance Reaction Severity [...] 06/18/21 11:15:00 EDT, 06/04/21 11:15:00 EDT, Capsule, [facility] #[id number], Partial fill upon patient request if the [...] 3 Refills, Maintenance, 09/13/20 13:21:00 EST, Tablet, [facility] - [place], [place] - [id number], 162.5, cm, 09/01/20 7:39:00 EST, Height, 109.5, [...]
--- OUTSIDE RECORDS SUMMARY | 2023-07-28 03:58 | XMS_ITS | Continuity of Care Document ---
Author Name Unknown Organization [facility] Adult Address [address] [place] [address]- Care Team Providers Care Dog Obedience Instructor Name Role Phone Alanis Wilson MD Primary Care Physician [place] [facility] Date(s): 09/12/20 - 10/12/20 [facility] Adult [address] [place] [address]- Encounter Diagnosis Allergic rhinitis(Discharge Diagnosis) - 09/13/20 Allergies, Adverse Reactions, Alerts Substance Reaction Severity [...] Refills, Maintenance,08/24/20 17:36:00 EST, [facility] #[id number], 162.5, cm, 08/01/20 15:54:00 EST, Height, 109.5, kg, 10/20/18 21:30:00 EST, Dry Weight Start Date: 08/24/20 Status: Ordered ibuprofen 400 mg oral tablet 400 mg, 1, tablet, By Mouth, 2 times a day, PRN, # 90 tablet, Refills 1, Tot. Refills 1, Maintenance, Pain , Moderate, 02/09/20 11:30:00 EDT, Route to Pharmacy Electronically, [place], [place] -, 162.5, cm, 01/24/20 9:06:00 EDT, [facility]... Start Date: 02/09/20 Status: Ordered omeprazole 20 mg oral enteric coated capsule 1 capsule = 20 mg, By Mouth, Daily, # 30 capsule, 2 Refills, Maintenance, 10/04/20 14:06:00 EST, ECCapsule, [facility] #[id number], 162.5, cm, 09/01/20 7:39:00 EST, Height, 109.5, kg, 10/20/18 21:30:00 EST, Dry Weight Start Date: 10/04/20 Status: Ordered ZyrTEC 10 mg oral tablet 1 tablet = 10 mg, By Mouth, Daily, # 90 tablet, 3 Refills, Maintenance, 09/13/20 13:21:00 EST, Tablet, [place], [place] - [id number], 162.5, cm, 09/01/20 7:39:00 EST, Height, 109.5, kg, 10/20/18 21:30:00 EST, Dry Weight Start Date: 09/13/20 Stop Date: 09/08/21 Status: Ordered Problem List Condition Effective Dates Status Health Status Inform ant Bipolar disorder(Confirmed) Active Migraine headache(Confirmed) Active PCOS - Polycystic ovarian syndrome(Confirmed) 05/02/09 Active Diagnosis Diagnosis Type Effective Dates Health Status Cl inical Service Informant Allergic rhinitis Discharge Diagnosis 09/13/20 Social History Social History Type Response Smoking Status Former smoker; Type: Cigarettes; Other: quit 4 years ago; entered on: 10/28/17 Sex
--- OUTSIDE RECORDS SUMMARY | 2023-07-28 03:58 | XMS_ITS | Continuity of Care Document ---
Author Name Unknown Organization [facility] ter Address [address] [place] [address]- Care Team Providers Care Security Supervisor Name Role Phone Franco Beard MD Primary Care Physician Encounter [facility] Date(s): 07/25/23 - 07/25/[address] [address]- Discharge Disposition: A-D/C Walkout Attending Physician: Not on Staff, Attending MD Admitting Physician: Not on Staff, Admitting MD Referring Physician: Not on Staff, Referring MD Allergies, Adverse Reactions, Alerts Substance Reaction Severity Status vancomycin pruritus Active morphine Active RisperDAL Active Immunizations Given and Recorded Vaccine Date Status Refusal Reason influenza virus vaccine, inactivated 06/20/21 Francisco J rded influenza virus vaccine, inactivated 06/22/20 Franciscoj rded influenza virus vaccine, inactivated 06/18/18 Francisco [...] 8Admin Note: given by another practices. Medications propranolol 10 mg oral tablet 1, tablet, By Mouth, 2 times a day, # 180 tablet, Refills 1, Tot. Refills 1, Maintenance, 06/23/23 9:27:00 EDT, Route to Pharmacy Electronically, [facility] #[id number], 165, cm, 06/20/23 13:12:00 EDT, Height, 85, kg, 06/12/23 11:58:00 EDT, Dry W... Start Date: 06/23/23 Status: Ordered SUMAtriptan 25 mg oral tablet 1 tablet = 25 mg, By Mouth, Once, At onset of headache. May repeat in 2 hours, # 18 tablet, 0 Refills, Soft Stop, 06/23/23 9:27:00 EDT, Tablet, [facility] #[id number], Partial fill upon patient request if the prescription is for a schedule II opi... Start Date: 06/23/23 Status: Ordered Problem List Condition Confirmation Course Effective Dates Status Health St atus Informant Bipolar disorder Confirmed Active Chest pain Confirmed Active Dizziness Confirmed Active Generalized anxiety disorder with panic attacks Confirmed Active Menorrhagia Confirmed Active Delayed menses Confirmed Active Microcytosis Confirmed Active Migraine headache Confirmed Active Obese class I Confirmed Active Palpitation Confirmed Active PCOS - Polycystic ovarian syndrome Confirmed 05/02/09 Active Prediabetes Confirmed Active Premenstrual dysphoric syndrome Confirmed Active Elevated serum creatinine Confirmed Active Vital Signs Most recent to oldest [Reference Range]: 1 2 Height 165 cm (07/25/23 8:02 PM) 165 cm (07/25/23 4:26 PM) Weight 92.3 kg (07/25/23 8:02 PM) 92.3 kg (07/25/23 4:26 PM) Oxygen Saturation [94-100 %] 100 % (07/25/23 7:26 PM) 100 % (07/25/23 4:26 PM) Pulse Rate [55-90 bpm] 82 bpm (07/25/23 7:26 PM) 83 bpm (07/25/23 4:26 PM) Body Mass Index [18.5-24.99 kg/m2] 33.9 kg/m2 *>HHI* (07/25/23 4:26 PM) Blood Pressure [90-138/55-84 mm Hg] 107/ 76mm Hg (07/25/23 7:26 PM) 114/73mm Hg (07/25/23 4:26 PM) Respiratory Rate [16-30 br/min] 16 br/mi n (07/25/23 4:26 PM) Temperature [96.8-100.4 DegF] 98.0 DegF (07/25/23 7:26 PM) 97.8 DegF (07/25/23 4:26 PM) Mode of Delivery (Oxygen) Room air (07/25/23 4:26 PM) Blood pressure sites Arm, right (07/25/23 7:26 PM) Arm, right (07/25/23 4:26 PM) Temperature Route Oral (07/25/23 7:26 PM) Oral (07/25/23 4:26 PM) Dry Weight 92.3 kg (07/25/23 8:02 PM) 92.3 kg (07/25/23 4:26 PM) Social History Social History Type Response Smoking Status Former smoker, quit more than 30 days ago; Other: Quit 2020; entered on: 09/19/22 Sex Patient Care team information Care Team Personnel Name: Svetlana Akhtar MD Position: [facility] CLERICAL OFFICE WORKER MD Member Role: Lifetime CLERICAL OFFICE WORKER Physician Address: Address: [address] [place] [address] [facility], [place] [address]- Name: Franco Beard MD Position: [facility] Physician - Primary Care Member Role: PCP Address: Address: [address] [place] [address], [address] [place] [address]- Care Team Related Persons Name: ARSH ELLSWORTH Address: [place] [address] Name: TAMERA SPENCER Address: [address] [place] [address] Name: MELISSA EDWARDS Address: home [address] [place] [address]
--- OUTSIDE RECORDS SUMMARY | 2023-07-28 03:58 | XMS_ITS | Continuity of Care Document ---
Author Name Unknown Organization [facility] Adult Address [address] [place] [address]- Care Team Providers Care Document Clerk Name Role Phone Katie NOVOA, Alanis Primary Care Physician Encounter [facility] Date(s): 01/13/20 - 01/20/20 [facility] Adult [address] [place] [address] [facility] Encounter Diagnosis Dizziness(Discharge Diagnosis) - 01/14/20 Elevated blood sugar(Discharge Diagnosis) - 01/14/20 Severe obesity(Discharge Diagnosis) - 01/15/20 Toenail fungus(Discharge Diagnosis) - 01/15/20 Attending Physician: Alanis Wilson MD Allergies, Adverse [...] 30 tablet, 0 Refills, Maintenance,11/24/19 12:57:00 EDT, [place], [place] -, 162.5, cm, 10/07/19 14:20:00 EST, Height, 109.5, kg, 10/20/18 21:30:00 EST, Dry Weight Start Date: 11/24/19 Stop Date: 12/24/19 Status: Ordered busPIRone 10 mg oral tablet 10 mg, 1, tablet, By Mouth, 2 times a day, # 60 tablet, Refills 11, Tot. Refills 11, Maintenance, 12/11/18 17:10:41 EDT, Route to Pharmacy Electronically, [id number], [facility] Start Date: 12/11/18 Stop Date: 12/06/19 [...] 08/10/19 13:50:44 EST, Route to Pharmacy Electronically, [place], [place] -, 162.5, cm, 04/07/19 11:09:30 EDT, Height, 109.5, kg, 10/20/18... Start Date: 08/10/19 Status: Ordered ibuprofen 400 mg oral tablet 400 mg, 1, tablet, By Mouth, 2 times a day, PRN, # 30 tablet, Refills 0, Tot. Refills 0, Maintenance, Pain , Moderate, 10/07/19 14:41:00 EST, Route to Pharmacy Electronically, [place], [place] -, 162.5, cm, 10/07/19 14:20:00 EST, [...] 1 Refills, Maintenance, 10/07/19 14:36:00 EST, ECCapsule, [facility] - [place], [place] -, 162.5, cm, 10/07/19 14:20:00 EST, [...] Dates Health Status Cl inical Service Informant Dizziness Discharge Diagnosis 01/14/20 Elevated blood sugar Discharge Diagnosis 01/14/20 Severe obesity Discharge Diagnosis 01/15/20 Toenail fungus Discharge Diagnosis 01/15/20 Vital Signs Most recent to oldest [Reference Range]: 1 Height 162.5 cm (01/13/20 11:04 AM) Social History Social History Type Response Smoking Status Former smoker; Type: Cigarettes; Other: quit 4 years ago; entered on: 10/28/17 Sex
--- OUTSIDE RECORDS SUMMARY | 2023-07-28 03:58 | XMS_ITS | Continuity of Care Document ---
Author Name Unknown Organization [facility] Address [address] [place] [address]- Care Team Providers Care Protein Chemist Name Role Phone Alanis Wilson MD Primary Care Physician [phone] Encounter [facility] [place] Date(s): 06/07/21 - 07/07/21 [facility] [address] [place] [address]- Attending Physician: Danish Harris Admitting Physician: AdmtrDanish Referring Physician: Admtr ArBradley Allergies, Adverse Reactions, Alerts Substance Reaction Severity [...] 02/26/21 11:05:00 EDT, Route to Pharmacy Electronically, [facility], 162.5, cm, 01/15/21 9:10:00 [...] 09/13/20 13:21:00 EST, Tablet, [facility] [place], [place] - [id number], 162.5, cm, 09/01/20 7:39:00 EST, Height, 109.5, [...]
--- OUTSIDE RECORDS SUMMARY | 2023-07-28 03:58 | XMS_ITS | Continuity of Care Document ---
Author Name Unknown Organization [facility] Adult Address [address] [place] [address]- Care Team Providers Care Assembly Operator Name Role Phone Alanis Wilson MD Primary Care Physician En[place] [facility](s): 05/03/20 - 06/02/20 [facility] Adult [address] [place] [address]- [facility] Allergies, Adverse Reactions, Alerts Substance Reaction Severity [...] 30 tablet, 0 Refills, Maintenance,11/24/19 12:57:00 EDT, [place], [place] -, 162.5, cm, 10/07/19 14:20:00 EST, [...] 08/10/19 13:50:44 EST, Route to Pharmacy Electronically, [place], [place] -, 162.5, cm, 04/07/19 11:09:30 EDT, Height, 109.5, kg, 10/20/18... Start Date: 08/10/19 Status: Ordered ibuprofen 400 mg oral tablet 400 mg, 1, tablet, By Mouth, 2 times a day, PRN, # 90 tablet, Refills 1, Tot. Refills 1, Maintenance, Pain , Moderate, 02/09/20 11:30:00 EDT, Route to Pharmacy Electronically, [place], [place] -, 162.5, cm, 01/24/20 9:06:00 EDT, [facility]... Start Date: 02/09/20 Status: Ordered MetFORMIN (Eqv-Glucophage XR) 500 mg oral tablet, extended release 1 tablet = 500 mg, By Mouth, Daily, # 90 tablet, 3 Refills, Maintenance, 01/26/20 22:25:00 EDT, [place], [place] -, 162.5, cm, 01/24/20 9:06:00 EDT, [...] Refills, Maintenance, 01/26/20 22:22:00 EDT, ER Tablet, [place], [place] -, 162.5, cm, 01/24/20 9:06:00 EDT, Height, 109.5, kg, 10/20/18 21:30:00 EST, Dry Weight Start Date: 01/26/20 Status: Ordered omeprazole 20 mg oral enteric coated capsule 1 capsule = 20 mg, By Mouth, Daily, # 30 capsule, 2 Refills, Maintenance, 05/04/20 9:38:00 EDT, EC Capsule, [facility] #[id number], 162.5, cm, 04/27/20 11:13:00 EDT, Height, 109.5, kg, 10/20/18 21:30:00 EST, Dry Weight Start Date: 05/04/20 Status: Ordered sertraline 100 mg oral tablet 1 tablet = 100 mg, By Mouth, Daily, # 7 tablet, 0 Refills, Maintenance, 04/07/20 13:06:00 EDT, [facility] #[id number], 162.5, cm, 04/07/20 10:29:00 EDT, Height, 109.5, kg, 10/20/18 21:30:00 EST,Dry Weight Start Date: 04/07/20 Stop Date: 04/14/20 Status: Ordered sertraline 100 mg oral tablet 1.5 tablet = 150 mg, By Mouth, Daily, # 45 tablet, 0 Refills, Maintenance, 04/14/20 13:10:00 EDT, [facility] #[id number], 162.5, cm, 04/07/20 10:29:00 EDT, Height, 109.5, [...]
--- OUTSIDE RECORDS SUMMARY | 2023-07-28 03:58 | XMS_ITS | Continuity of Care Document ---
Author Name Unknown Organization [facility] Adult Address [address] [place] [address]- Care Team Providers Care Motion Picture Scene Builder Name Role Phone Katie NOVOA, Alanis Primary Care Physician En[place] [facility] [place] [place] Date(s): 08/01/20 - 08/08/20 [facility] Adult [address] [place] [address]- Encounter Diagnosis Atypical chest pain(Discharge Diagnosis) - 08/01/20 Headache(Discharge Diagnosis) - 08/01/20 Blood pressure elevated without history of HTN(Discharge Diagnosis) - 08/01/20 Attending Physician: Sabi Rizzo MD Referring Physician: Alanis Wilson MD Allergies, [...] 30 tablet, 0 Refills, Maintenance,11/24/19 12:57:00 EDT, [place], [place] -, 162.5, cm, 10/07/19 14:20:00 EST, Height, 109.5, kg, 10/20/18 21:30:00 EST, Dry Weight Start Date: 11/24/19 Stop Date: 12/24/19 Status: Ordered ibuprofen 400 mg oral tablet 400 mg, 1, tablet, By Mouth, 2 times a day, PRN, # 90 tablet, Refills 1, Tot. Refills 1, Maintenance, Pain , Moderate, 02/09/20 11:30:00 EDT, Route to Pharmacy Electronically, [place], [place] -, 162.5, cm, 01/24/20 9:06:00 EDT, [facility]... Start Date: 02/09/20 Status: Ordered omeprazole 20 mg oral enteric coated capsule 1 capsule = 20 mg, By Mouth, Daily, # 30 capsule, 2 Refills, Maintenance, 05/04/20 9:38:00 EDT, EC Capsule, [facility] #[id number], 162.5, cm, 04/27/20 11:13:00 EDT, Height, 109.5, [...] Dates Health Status Cl inical Service Informant Atypical chest pain Discharge Diagnosis 08/01/20 Headache Discharge Diagnosis 08/01/20 Blood pressure elevated without history of HTN Discharge Diagnosis 08/01/20 Vital Signs Most recent to oldest [Reference Range]: 1 Height 162.5 cm (08/01/20 3:54 PM) Social History Social History Type Response Smoking Status Former smoker; Type: Cigarettes; Other: quit 4 years ago; entered on: 10/28/17 Sex
--- OUTSIDE RECORDS SUMMARY | 2023-07-28 03:58 | XMS_ITS | Continuity of Care Document ---
Author Name Unknown Organization [facility] Adult Address [address] [place] [address]- Care Team Providers Care Shoder Filler Name Role Phone Katie NOVOA, [facility] Primary Care Physician [place] [facility] [place]/05/21 - 10/05/[address] [address]- Allergies, Adverse Reactions, Alerts Substance Reaction Severity [...] 02/26/21 11:05:00 EDT, Route to Pharmacy Electronically, [facility], 162.5, cm, 01/15/21 9:10:00 EDT, Height [...] 3 Refills, Maintenance, 09/13/20 13:21:00 EST, Tablet, [facility] [place], [place] - [id number], 162.5, cm, 09/01/20 7:39:00 EST, Height, 109.5, [...]
--- OUTSIDE RECORDS SUMMARY | 2023-07-28 03:58 | XMS_ITS | Continuity of Care Document ---
Author Name Unknown Organization [facility] Adult Address [address] [place] [address]- Care Team Providers Care Geothermal Technician Name Role Phone Katie NOVOA, Alanis Primary Care Physician [phone] Encounter [facility] Date(s): 08/28/21 - 09/27/21 [facility] [address] [place] [address]- Allergies, Adverse Reactions, Alerts Substance Reaction Severity [...] 02/26/21 11:05:00 EDT, Route to Pharmacy Electronically, [facility], 162.5, cm, 01/15/21 9:10:00 [...] 3 Refills, Maintenance, 09/13/20 13:21:00 EST, Tablet, [facility] - [place], [place] - [id number], 162.5, cm, 09/01/20 7:39:00 EST, Height, 109.5, [...]
--- OUTSIDE RECORDS SUMMARY | 2023-07-28 03:58 | XMS_ITS | Continuity of Care Document ---
Author Name Unknown Organization [facility] Adult Address [address] [place] [address]- Care Team Providers Care Jewelry Repairer Name Role Phone Katie NOVOA, Alanis Primary Care Physician Encounter [facility] [place] Date(s): 01/12/21 - 01/19/21 [facility] [address] [place] [phone]- Encounter Diagnosis Chest pain(Discharge Diagnosis) - 01/12/21 Anxiety(Discharge Diagnosis) - 01/12/21 Chemical exposure(Discharge Diagnosis) - 01/12/21 Migraines(Discharge Diagnosis) - 01/12/21 Visual disturbances(Discharge Diagnosis) - 01/12/21 Attending Physician: Gabriela Kumar NP Referring Physician: Alanis Wilson MD Allergies, Adverse [...] 30 tablet, 0 Refills, Maintenance,08/24/20 17:36:00 EST, [email or web address] #[id number], 162.5, cm, 08/01/20 15:54:00 EST, Height, 109.5, kg, 10/20/18 21:30:00 EST, Dry Weight Start Date: 08/24/20 Status: Ordered ibuprofen 400 mg oral tablet 400 mg, 1, tablet, By Mouth, 2 times a day, PRN, # 90 tablet, Refills 1, Tot. Refills 1, Maintenance, Pain , Moderate, 02/09/20 11:30:00 EDT, Route to Pharmacy Electronically, [place], [place] -, 162.5, cm, 01/24/20 9:06:00 EDT, [place]... Start Date: 02/09/20 Status: Ordered omeprazole 20 mg oral enteric coated capsule 1 capsule = 20 mg, By Mouth, Daily, # 30 capsule, 2 Refills, Maintenance, 12/21/20 15:26:00 EDT, [facility], [id number], 162.5, cm, 12/05/20 12:55:00 EDT, Height Start Date: 12/21/20 Status: Ordered ZyrTEC 10 mg oral tablet 1 tablet = 10 mg, By Mouth, Daily, # 90 tablet, 3 Refills, Maintenance, 09/13/20 13:21:00 EST, Tablet, [place], [place] - [id number], 162.5, cm, 09/01/20 7:39:00 EST, Height, 109.5, kg, 10/20/18 21:30:00 EST, Dry Weight Start Date: 09/13/20 Stop Date: 09/08/21 Status: Ordered Problem List Condition Effective Dates Status Health Status Inform ant Bipolar disorder(Confirmed) Active Migraine headache(Confirmed) Active PCOS - Polycystic ovarian syndrome(Confirmed) 9/8/09 Active Prediabetes(Confirmed) Active Diagnosis Diagnosis Type Effective Dates Health Status Clinical Service Informant Anxiety Discharge Diagnosis 01/12/21 Chest pain Discharge Diagnosis 01/12/21 Chemical exposure Discharge Diagnosis 01/12/21 Migraines Discharge Diagnosis 01/12/21 Visual disturbances Discharge Diagnosis 01/12/21 Vital Signs Most recent to oldest [Reference Range]: 1 Height 162.5 cm (01/12/21 12:16 PM) Weight 102.2 kg (01/12/21 12:16 PM) Pulse Rate [55-90 bpm] 94 bpm *H* (01/12/21 12:16 PM) Body Mass Index [18.5-24.99] 38.7 *>HHI* (01/12/21 12:16 PM) Blood Pressure [90-138/55-84 mm Hg] 101/ 66mm Hg (01/12/21 12:16 PM) Blood pressure sites Arm, left (01/12/21 12:16 PM) Weight Obtained Via Patient/family state d (01/12/21 12:16 PM) Social History Social History Type Response Smoking Status 5-9 cigarettes (betw een 1/4 to 1/2 pack)/day in last 30 days entered on: 12/05/20 Sex
--- OUTSIDE RECORDS SUMMARY | 2023-07-28 03:59 | XMS_ITS | Continuity of Care Document ---
Author Name Unknown Organization [facility] Address [address] [place] [address]- Care Team Providers Care Flow Match Sofa Cutter Name Role Phone Katie NOVOA, Alanis Primary Care Physician Encounter [facility] Date(s): 06/18/21 - 07/18/21 [facility] [address] [place] [address]- Allergies, Adverse Reactions, Alerts Substance Reaction Severity [...] 02/26/21 11:05:00 EDT, Route to Pharmacy Electronically, [facility], 162.5, cm, 01/15/21 9:10:00 EDT, [...] 3 Refills, Maintenance, 09/13/20 13:21:00 EST, Tablet, [facility] [place], [place] - [id number], 162.5, cm, 09/01/20 7:39:00 EST, Height, 109.5, [...]
--- OUTSIDE RECORDS SUMMARY | 2023-07-28 03:59 | XMS_ITS | Continuity of Care Document ---
Author Name Unknown Organization [facility] Address [address] [place] [address]- Care Team Providers Care Engine Manager Name Role Phone Alanis Wilson MD Primary Care Physician En[place] [facility] [place] Date(s): 05/04/20 - 06/03/20 [facility] [address] [place] [phone]- [facility] Allergies, Adverse Reactions, Alerts [...] 30 tablet, 0 Refills, Maintenance,11/24/19 12:57:00 EDT, [place], [place] -, 162.5, cm, 10/07/19 14:20:00 EST, [...] 08/10/19 13:50:44 EST, Route to Pharmacy Electronically, [place], [place] -, 162.5, cm, 04/07/19 11:09:30 EDT, Height, 109.5, kg, 10/20/18... Start Date: 08/10/19 Status: Ordered ibuprofen 400 mg oral tablet 400 mg, 1, tablet, By Mouth, 2 times a day, PRN, # 90 tablet, Refills 1, Tot. Refills 1, Maintenance, Pain , Moderate, 02/09/20 11:30:00 EDT, Route to Pharmacy Electronically, [place], [place] -, 162.5, cm, 01/24/20 9:06:00 EDT, [facility]... Start Date: 02/09/20 Status: Ordered MetFORMIN (Eqv-Glucophage XR) 500 mg oral tablet, extended release 1 tablet = 500 mg, By Mouth, Daily, # 90 tablet, 3 Refills, Maintenance, 01/26/20 22:25:00 EDT, [place], [place] -, 162.5, cm, 01/24/20 9:06:00 EDT, [...] Refills, Maintenance, 01/26/20 22:22:00 EDT, ER Tablet, [place], [place] -, 162.5, cm, 01/24/20 9:06:00 EDT, Height, 109.5, kg, 10/20/18 21:30:00 EST, Dry Weight Start Date: 01/26/20 Status: Ordered omeprazole 20 mg oral enteric coated capsule 1 capsule = 20 mg, By Mouth, Daily, # 30 capsule, 2 Refills, Maintenance, 05/04/20 9:38:00 EDT, EC Capsule, [facility] #[id number], 162.5, cm, 04/27/20 11:13:00 EDT, Height, 109.5, kg, 10/20/18 21:30:00 EST, Dry Weight Start Date: 05/04/20 Status: Ordered sertraline 100 mg oral tablet 1 tablet = 100 mg, By Mouth, Daily, # 7 tablet, 0 Refills, Maintenance, 04/07/20 13:06:00 EDT, [facility] [place][id number], 162.5, cm, 04/07/20 10:29:00 EDT, Height, 109.5, kg, 10/20/18 21:30:00 EST,Dry Weight Start Date: 04/07/20 Stop Date: 04/14/20 Status: Ordered sertraline 100 mg oral tablet 1.5 tablet = 150 mg, By Mouth, Daily, # 45 tablet, 0 Refills, Maintenance, 04/14/20 13:10:00 EDT, [facility] [place] #[id number], 162.5, cm, 04/07/20 10:29:00 EDT, Height, 109.5, [...]
--- OUTSIDE RECORDS SUMMARY | 2023-07-28 03:59 | XMS_ITS | Continuity of Care Document ---
Author Name Unknown Organization [facility] Adult Address [address] [place] [address]- Care Team Providers Care School Clerk Name Role Phone Katie NOVOA, Alanis Primary Care Physician [place] [facility] [place]/24/21 - 02/23/21 [facility] Adult [address] [place] [phone]- Allergies, Adverse Reactions, Alerts Substance Reaction Severity [...] 30 tablet, 0 Refills, Maintenance,08/24/20 17:36:00 EST, [facility] #[id number], 162.5, cm, 08/01/20 15:54:00 EST, Height, 109.5, kg, 10/20/18 21:30:00 EST, Dry Weight Start Date: 08/24/20 Status: Ordered ibuprofen 400 mg oral tablet 400 mg, 1, tablet, By Mouth, 2 times a day, PRN, # 90 tablet, Refills 1, Tot. Refills 1, Maintenance, Pain , Moderate, 02/09/20 11:30:00 EDT, Route to Pharmacy Electronically, [place], [place] -, 162.5, cm, 01/24/20 9:06:00 EDT, [facility]... Start Date: 02/09/20 Status: Ordered omeprazole 20 mg oral enteric coated capsule 1 capsule = 20 mg, By Mouth, Daily, # 30 capsule, 2 Refills, Maintenance, 12/21/20 15:26:00 EDT, ECCapsule, [facility] #[id number], 162.5, cm, 12/05/20 12:55:00 EDT, Height Start Date: 12/21/20 Status: Ordered ZyrTEC 10 mg oral tablet 1 tablet = 10 mg, By Mouth, Daily, # 90 tablet, 3 Refills, Maintenance, 09/13/20 13:21:00 EST, Tablet, [place], [place] - [id number], 162.5, cm, 09/01/20 7:39:00 EST, Height, 109.5, [...]
--- OUTSIDE RECORDS SUMMARY | 2023-07-28 03:59 | XMS_ITS | Continuity of Care Document ---
Author Name Unknown Organization [facility] Adult Address [address] [place] [address]- Care Team Providers Care Electronic Assembler Group Leader Name Role Phone Alanis Wilson MD Primary Care Physician Encounter [facility] [place] Date(s): 10/03/20 - 11/02/[address] [facility] Adult [address] [place] [phone]- Allergies, Adverse Reactions, Alerts Substance Reaction Severity [...] 30 tablet, 0 Refills, Maintenance,08/24/20 17:36:00 EST, [facility] #[id number], 162.5, cm, 08/01/20 15:54:00 EST, Height, 109.5, kg, 10/20/18 21:30:00 EST, Dry Weight Start Date: 08/24/20 Status: Ordered ibuprofen 400 mg oral tablet 400 mg, 1, tablet, By Mouth, 2 times a day, PRN, # 90 tablet, Refills 1, Tot. Refills 1, Maintenance, Pain , Moderate, 02/09/20 11:30:00 EDT, Route to Pharmacy Electronically, [place], [place] -, 162.5, cm, 01/24/20 9:06:00 EDT, [facility]. Start Date: 02/09/20 Status: Ordered omeprazole 20 mg oral enteric coated capsule 1 capsule = 20 mg, By Mouth, Daily, # 30 capsule, 2 Refills, Maintenance, 10/04/20 14:06:00 EST, ECCapsule, [facility] #[id number], 162.5, cm, 09/01/20 7:39:00 EST, Height, 109.5, kg, 10/20/18 21:30:00 EST, Dry Weight Start Date: 10/04/20 Status: Ordered ZyrTEC 10 mg oral tablet 1 tablet = 10 mg, By Mouth, Daily, # 90 tablet, 3 Refills, Maintenance, 09/13/20 13:21:00 EST, Tablet, [place], [place] - [id number], 162.5, cm, 09/01/20 7:39:00 EST, Height, 109.5, [...]
--- OUTSIDE RECORDS SUMMARY | 2023-07-28 03:59 | XMS_ITS | Continuity of Care Document ---
Author Name Unknown Organization [facility] Adult Address [address] [place] [address]- Care Team Providers Care Harp Repairer Name Role Phone Alanis Wilson MD Primary Care Physician [place] [facility] [place] - 09/27/20 [facility] [address] [place] [phone]- Allergies, Adverse Reactions, Alerts Substance Reaction Severity [...] 30 tablet, 0 Refills, Maintenance,08/24/20 17:36:00 EST, [id number], 162.5, cm, 08/01/20 15:54:00 EST, Height, 109.5, kg, 10/20/18 21:30:00 EST, Dry Weight Start Date: 08/24/20 Status: Ordered ibuprofen 400 mg oral tablet 400 mg, 1, tablet, By Mouth, 2 times a day, PRN, # 90 tablet, Refills 1, Tot. Refills 1, Maintenance, Pain , Moderate, 02/09/20 11:30:00 EDT, Route to Pharmacy Electronically, [place], [place] -, 162.5, cm, 01/24/20 9:06:00 EDT, [facility]... Start Date: 02/09/20 Status: Ordered omeprazole 20 mg oral enteric coated capsule 1 capsule = 20 mg, By Mouth, Daily, # 30 capsule, 2 Refills, Maintenance, 05/04/20 9:38:00 EDT, EC Capsule, [facility] #[id number], 162.5, cm, 04/27/20 11:13:00 EDT, Height, 109.5, kg, 10/20/18 21:30:00 EST, Dry Weight Start Date: 05/04/20 Status: Ordered ZyrTEC 10 mg oral tablet 1 tablet = 10 mg, By Mouth, Daily, # 90 tablet, 3 Refills, Maintenance, 09/13/20 13:21:00 EST, Tablet, [place], [place] - [id number], 162.5, cm, 09/01/20 7:39:00 EST, Height, 109.5, [...]
--- OUTSIDE RECORDS SUMMARY | 2023-07-28 03:59 | XMS_ITS | Continuity of Care Document ---
Author Name Unknown Organization [facility] Adult Address [address] [place] [address]- Care Team Providers Care Setter Machine Name Role Phone Alanis Wilson MD Primary Care Physician [phone] En[place] [facility] [place](s): 11/09/20 - 12/09/20 [facility] Adult [address] [place] [phone]- Allergies, Adverse Reactions, Alerts Substance Reaction Severity [...] 30 tablet, 0 Refills, Maintenance,08/24/20 17:36:00 EST, [facility] #[id number], 162.5, cm, 08/01/20 15:54:00 EST, Height, 109.5, kg, 10/20/18 21:30:00 EST, Dry Weight Start Date: 08/24/20 Status: Ordered ibuprofen 400 mg oral tablet 400 mg, 1, tablet, By Mouth, 2 times a day, PRN, # 90 tablet, Refills 1, Tot. Refills 1, Maintenance, Pain , Moderate, 02/09/20 11:30:00 EDT, Route to Pharmacy Electronically, [place], [place] -, 162.5, cm, 01/24/20 9:06:00 EDT, .. Start Date: 02/09/20 Status: Ordered omeprazole 20 mg oral enteric coated capsule 1 capsule = 20 mg, By Mouth, Daily, # 30 capsule, 2 Refills, Maintenance, 10/04/20 14:06:00 EST, ECCapsule, [facility] #[id number], 162.5, cm, 09/01/20 7:39:00 EST, Height, 109.5, kg, 10/20/18 21:30:00 EST, Dry Weight Start Date: 10/04/20 Status: Ordered ZyrTEC 10 mg oral tablet 1 tablet = 10 mg, By Mouth, Daily, # 90 tablet, 3 Refills, Maintenance, 09/13/20 13:21:00 EST, Tablet, [place], [place] - [id number], 162.5, cm, 09/01/20 7:39:00 EST, Height, 109.5, [...]
--- OUTSIDE RECORDS SUMMARY | 2023-07-28 03:59 | XMS_ITS | Continuity of Care Document ---
Author Name Unknown Organization [facility] Address [address] [place] [phone]- Care Team Providers Care Mobility Architect Name Role Phone Katie NOVOA, Alanis Primary Care Physician Encounter [facility] [place] Date(s): 01/24/20 - 01/31/20 [facility] [address] [place] [address]- [facility] Encounter Diagnosis Dizziness(Discharge Diagnosis) - 01/26/20 Prediabetes(Discharge Diagnosis) - 01/26/20 Severe obesity(Discharge Diagnosis) - 01/26/20 Attending Physician: Alanis Wilson MD Allergies, Adverse [...] 30 tablet, 0 Refills, Maintenance,11/24/19 12:57:00 EDT, [place], [place] -, 162.5, cm, 10/07/19 14:20:00 EST, Height, 109.5, kg, 10/20/18 21:30:00 EST, Dry Weight Start Date: 11/24/19 Stop Date: 12/24/19 Status: Ordered busPIRone 10 mg oral tablet 10 mg, 1, tablet, By Mouth, 2 times a day, # 60 tablet, Refills 11, Tot. Refills 11, Maintenance, 12/11/18 17:10:41 EDT, Route to Pharmacy Electronically, [id number], [facility] Start Date: 12/11/18 Stop Date: 12/06/19 [...] 08/10/19 13:50:44 EST, Route to Pharmacy Electronically, [place], [place] -, 162.5, cm, 04/07/19 11:09:30 EDT, Height, 109.5, kg, 10/20/18... Start Date: 08/10/19 Status: Ordered ibuprofen 400 mg oral tablet 400 mg, 1, tablet, By Mouth, 2 times a day, PRN, # 30 tablet, Refills 0, Tot. Refills 0, Maintenance, Pain , Moderate, 10/07/19 14:41:00 EST, Route to Pharmacy Electronically, [place], [place] -, 162.5, cm, 10/07/19 14:20:00 EST, [place]... Start Date: 10/07/19 Status: Ordered MetFORMIN (Eqv-Glucophage XR) 500 mg oral tablet, extended release 1 tablet = 500 mg, By Mouth, Daily, # 90 tablet, 3 Refills, Maintenance, 01/26/20 22:25:00 EDT, [place], [place] -, 162.5, cm, 01/24/20 9:06:00 EDT, [...] Refills, Maintenance, 01/26/20 22:22:00 EDT, ER Tablet, [place], [place] -, 162.5, cm, 01/24/20 9:06:00 EDT, Height, 109.5, kg, 10/20/18 21:30:00 EST, Dry Weight Start Date: 01/26/20 Status: Ordered omeprazole 20 mg oral enteric coated capsule 1 capsule = 20 mg, By Mouth, Daily, # 30 capsule, 2 Refills, Maintenance, 01/21/20 11:11:00 EDT, ECCapsule, [place], [place] -, 162.5, cm, 01/13/20 11:04:00 EDT, [...] Dates Health Status Cl inical Service Informant Prediabetes Discharge Diagnosis 01/26/20 Dizziness Discharge Diagnosis 01/26/20 Severe obesity Discharge Diagnosis 01/26/20 Vital Signs Most recent to oldest [Reference Range]: 1 Height 162.5 cm (01/24/20 9:06 AM) Social History Social History Type Response Smoking Status Former smoker; Type: Cigarettes; Other: quit 4 years ago; entered on: 10/28/17 Sex
--- OUTSIDE RECORDS SUMMARY | 2023-07-28 03:59 | XMS_ITS | Continuity of Care Document ---
Author Name Unknown Organization [facility] Address [address] [place] [address]- Care Team Providers Care Customer Loyalty Representative Name Role Phone Alanis Wilson MD Primary Care Physician [phone] [place] [facility] [place] 12[place]20 [facility] [address] [place] [phone]- Allergies, Adverse Reactions, Alerts Substance Reaction Severity [...] 30 tablet, 0 Refills, Maintenance,08/24/20 17:36:00 EST, [facility] #[id number], 162.5, cm, 08/01/20 15:54:00 EST, Height, 109.5, kg, 10/20/18 21:30:00 EST, Dry Weight Start Date: 08/24/20 Status: Ordered ibuprofen 400 mg oral tablet 400 mg, 1, tablet, By Mouth, 2 times a day, PRN, # 90 tablet, Refills 1, Tot. Refills 1, Maintenance, Pain , Moderate, 02/09/20 11:30:00 EDT, Route to Pharmacy Electronically, [place], [place] -, 162.5, cm, 01/24/20 9:06:00 EDT, .. Start Date: 02/09/20 Status: Ordered omeprazole 20 mg oral enteric coated capsule 1 capsule = 20 mg, By Mouth, Daily, # 30 capsule, 2 Refills, Maintenance, 10/04/20 14:06:00 EST, ECCapsule, [facility] #[id number], 162.5, cm, 09/01/20 7:39:00 EST, Height, 109.5, kg, 10/20/18 21:30:00 EST, Dry Weight Start Date: 10/04/20 Status: Ordered ZyrTEC 10 mg oral tablet 1 tablet = 10 mg, By Mouth, Daily, # 90 tablet, 3 Refills, Maintenance, 09/13/20 13:21:00 EST, Tablet, [place], [place] - [id number], 162.5, cm, 09/01/20 7:39:00 EST, Height, 109.5, [...]
--- OUTSIDE RECORDS SUMMARY | 2023-07-28 03:59 | XMS_ITS | Continuity of Care Document ---
Author Name Unknown Organization [facility] Address [address] [place] [address]- Care Team Providers Care Engineering Leader Name Role Phone Katie NOVOA, Alanis Primary Care Physician Encounter [facility] Date(s): 01/26/21 - 02/25/[address] [id number] Allergies, Adverse Reactions, [...] # 30 tablet, 0 Refills, Maintenance,08/24/20 17:36:00 [facility] #[id number], 162.5, cm, 08/01/20 15:54:00 EST, Height, 109.5, kg, 10/20/18 21:30:00 EST, Dry Weight Start Date: 08/24/20 Status: Ordered ibuprofen 400 mg oral tablet 400 mg, 1, tablet, By Mouth, 2 times a day, PRN, # 90 tablet, Refills 1, Tot. Refills 1, Maintenance, Pain , Moderate, 02/09/20 11:30:00 EDT, Route to Pharmacy Electronically, [place], [place] -, 162.5, cm, 01/24/20 9:06:00 EDT, [facility]... Start Date: 02/09/20 Status: Ordered omeprazole 20 mg oral enteric coated capsule 1 capsule = 20 mg, By Mouth, Daily, # 30 capsule, 2 Refills, Maintenance, 12/21/20 15:26:00 EDT, ECCapsule, [facility] #[id number], 162.5, cm, 12/05/20 12:55:00 EDT, Height Start Date: 12/21/20 Status: Ordered ZyrTEC 10 mg oral tablet 1 tablet = 10 mg, By Mouth, Daily, # 90 tablet, 3 Refills, Maintenance, 09/13/20 13:21:00 EST, Tablet, [place], [place] - [id number], 162.5, cm, 09/01/20 7:39:00 EST, Height, 109.5, [...]
--- OUTSIDE RECORDS SUMMARY | 2023-07-28 03:59 | XMS_ITS | Continuity of Care Document ---
Author Name Unknown Organization [facility] Adult Address [address] [place] [address]- Care Team Providers Care Meter Repairer Helper Name Role Phone Katie NOVOA, Alanis Primary Care Physician [phone] Encounter [facility] [place] Date(s): 10/02/21 - 10/09/[address] [address]- Encounter Diagnosis Leukocytosis(Discharge Diagnosis) - 10/02/21 Bipolar disorder(Discharge Diagnosis) - 10/03/21 Attending Physician: Alanis Wilson MD Allergies, Adverse [...] 02/26/21 11:05:00 EDT, Route to Pharmacy Electronically, [facility], 162.5, cm, 01/15/21 9:10:00 EDT, Height [...] 3 Refills, Maintenance, 09/13/20 13:21:00 EST, Tablet, [facility] [place], [place] - [id number], 162.5, cm, 09/01/20 7:39:00 EST, Height, 109.5, kg, 10/20/18 21:30:00 EST, Dry Weight Start Date: 09/13/20 Stop Date: 09/08/21 Status: Ordered Problem List Condition Effective Dates Status Health Status Inform ant Bipolar disorder(Confirmed) Active Migraine headache(Confirmed) Active PCOS - Polycystic ovarian syndrome(Confirmed) 05/02/09 Active Prediabetes(Confirmed) Active Diagnosis Diagnosis Type Effective Dates Health Status Clinical Service Informant Leukocytosis Discharge Diagnosis 10/02/21 Bipolar disorder Discharge Diagnosis 10/03/21 Vital Signs Most recent to oldest [Reference Range]: 1 Height 162 cm (10/02/21 11:18 AM) Weight 82.9 kg (10/02/21 11:18 AM) Oxygen Saturation [94-100 %] 99 % (10/02/21 11:18 AM) Pulse Rate [55-90 bpm] 85 bpm (10/02/21 11:18 AM) Body Mass Index [18.5-24.99] 31.59 *>HHI* (10/02/21 11:18 AM) Blood Pressure [90-138/55-84 mm Hg] 106/ 78mm Hg (10/02/21 11:18 AM) Temperature [96.8-100.4 DegF] 98.5 DegF (10/02/21 11:18 AM) Blood pressure sites Arm, right (10/02/21 11:18 AM) Temperature Route Oral (10/02/21 11:18 AM) Social History Social History Type Response Smoking Status 5-9 cigarettes (betw een 1/4 to 1/2 pack)/day in last 30 days entered on: 12/05/20 Sex
--- OUTSIDE RECORDS SUMMARY | 2023-07-28 03:59 | XMS_ITS | Continuity of Care Document ---
Author Name Unknown Organization [facility] Address [address] [place] [address]- Care Team Providers Care Legal Administrative Assistant Name Role Phone Not on Staff, PCP Primary Care Physician Unavail able [facility]counter [facility] Date(s): 11/06/21 - 12/16/21 [facility] [address] [place] [id number] Attending Physician: Katie NOVOA, Alanis [...] 11:05:00 EDT, Route to Pharmacy Electronically, [facility], 162.5, cm, 01/15/21 9:10:00 [...] 13:21:00 EST, Tablet, [facility] [place], [place] - [id number], 162.5, cm, 09/01/20 7:39:00 EST, Height, 109.5, [...]
--- OUTSIDE RECORDS SUMMARY | 2023-07-28 03:59 | XMS_ITS | Continuity of Care Document ---
Author Name Unknown Organization [facility] Adult Address [address] [place] [address]- Care Team Providers Care Hamper Maker Machine Name Role Phone Alanis iWlson MD Primary Care Physician Encounter [facility] [place] Date(s): 04/07/20 - 04/14/20 [facility] Adult [address] [place] [id number] [facility] Attending Physician: Ignacio CASTING CLEANER, Gabriela Allergies, Adverse Reactions, Alerts Substance Reaction Severity [...] 30 tablet, 0 Refills, Maintenance,11/24/19 12:57:00 EDT, [place], [place] -, 162.5, cm, 10/07/19 14:20:00 EST, [...] 08/10/19 13:50:44 EST, Route to Pharmacy Electronically, [place], [place] -, 162.5, cm, 04/07/19 11:09:30 EDT, Height, 109.5, kg, 10/20/18... Start Date: 08/10/19 Status: Ordered ibuprofen 400 mg oral tablet 400 mg, 1, tablet, By Mouth, 2 times a day, PRN, # 90 tablet, Refills 1, Tot. Refills 1, Maintenance, Pain , Moderate, 02/09/20 11:30:00 EDT, Route to Pharmacy Electronically, [place], [place] -, 162.5, cm, 01/24/20 9:06:00 EDT, [facility]... Start Date: 02/09/20 Status: Ordered MetFORMIN (Eqv-Glucophage XR) 500 mg oral tablet, extended release 1 tablet = 500 mg, By Mouth, Daily, # 90 tablet, 3 Refills, Maintenance, 01/26/20 22:25:00 EDT, [place], [place] -, 162.5, cm, 01/24/20 9:06:00 EDT, [...] Refills, Maintenance, 01/26/20 22:22:00 EDT, ER Tablet, [place], [place] -, 162.5, cm, 01/24/20 9:06:00 EDT, Height, 109.5, kg, 10/20/18 21:30:00 EST, Dry Weight Start Date: 01/26/20 Status: Ordered omeprazole 20 mg oral enteric coated capsule 1 capsule = 20 mg, By Mouth, Daily, # 30 capsule, 2 Refills, Maintenance, 01/21/20 11:11:00 EDT, ECCapsule, [place], [place] -, 162.5, cm, 01/13/20 11:04:00 EDT, Height, 109.5, kg, 10/20/18 21:30:00 EST, Dry Weight Start Date: 01/21/20 Status: Ordered sertraline 100 mg oral tablet 1 tablet = 100 mg, By Mouth, Daily, # 7 tablet, 0 Refills, Maintenance, 04/07/20 13:06:00 EDT, [id number], 162.5, cm, 04/07/20 10:29:00 EDT, Height, 109.5, kg, 10/20/18 21:30:00 EST,Dry Weight Start Date: 04/07/20 Stop Date: 04/14/20 Status: Ordered sertraline 100 mg oral tablet 1.5 tablet = 150 mg, By Mouth, Daily, # 45 tablet, 0 Refills, Maintenance, 04/14/20 13:10:00 EDT, [facility] #[id number], 162.5, cm, 04/07/20 10:29:00 EDT, Height, 109.5, kg, 10/20/18 21:30:00 EST, Dry Weight Start Date: 04/14/20 Stop Date: 05/14/20 Status: Ordered ZyrTEC 10 mg oral tablet 1 tablet = 10 mg, By Mouth, Daily, # 30 tablet, 0 Refills, Maintenance, 08/14/19 15:46:52 EDT, Tablet Start Date: 04/07/19 Status: Ordered Problem List Condition Effective Dates Status Health Status Inform ant Bipolar disorder, curr episo de depressed, severe, w/psychotic features(Confirmed) 05/10/09 Active Migraine headache(Confirmed) Active PCOS - Polycystic ovarian syndrome(Confirmed) 05/02/09 Active Severe obesity(Confirmed) Active Vital Signs Most recent to oldest [Reference Range]: 1 Height 162.5 cm (04/07/20 10:29 AM) Social History Social History Type Response Smoking Status Former smoker; Type: Cigarettes; Other: quit 4 years ago; entered on: 10/28/17 Sex
--- OUTSIDE RECORDS SUMMARY | 2023-07-28 03:59 | XMS_ITS | Continuity of Care Document ---
Author Name Unknown Organization [facility] Adult Address [address] [place] [id number]- Care Team Providers Care Stitching Machine Setter Name Role Phone Katie NOVOA, Alanis Primary Care Physician [phone] Encounter [facility] Date(s): 06/04/21 - 06/11/[address] [address]- Encounter Diagnosis Bipolar disorder(Discharge Diagnosis) - 06/04/21 Attending Physician: Jose Luis Clark MD Referring Physician: Alanis Wilson MD Allergies, Adverse Reactions, Alerts Substance Reaction Severity Status vancomycin pruritus Active RisperDAL Active Immunizations Given and Recorded Vaccine Date Status Refusal Reason SARS-CoV-2 (COVID-19) mRNA BNT-162b2 vac 04/15/21 Recorded SARS-CoV-2 (COVID-19) mRNA BNT-162b2 vac 03/25/21 Recorded influenza virus vaccine, inactivated 06/22/20 Francisco J rded influenza virus vaccine, inactivated 06/18/18 Francicso J rded influenza virus vaccine, inactivated 1 [...] 06/18/21 11:15:00 EDT, 06/04/21 11:15:00 EDT, Capsule, [facility] #[id number], Partial fill upon patient request if the prescription is for a... Start Date: 06/04/21 Stop Date: 06/18/21 Status: Ordered ibuprofen 400 mg oral tablet 1, tablet, By Mouth, 2 times a day, PRN, # 60 tablet, Refills 1, Tot. Refills 0, Acute, NEEDED FOR MODERATE PAIN, 02/26/21 11:05:00 EDT, Route to Pharmacy Electronically, [facility], 162.5, cm, 01/15/21 9:10:00 EDT, Height Start [...] 3 Refills, Maintenance, 09/13/20 13:21:00 EST, Tablet, [facility] - [place], [place] - [id number], 162.5, cm, 09/01/20 7:39:00 EST, Height, 109.5, kg, 10/20/18 21:30:00 EST, Dry Weight Start Date: 09/13/20 Stop Date: 09/08/21 Status: Ordered Problem List Condition Effective Dates Status Health Status Inform ant Bipolar disorder(Confirmed) Active Migraine headache(Confirmed) Active PCOS - Polycystic ovarian syndrome(Confirmed) 05/02/09 Active Prediabetes(Confirmed) Active Diagnosis Diagnosis Type Effective Dates Health Status Cl inical Service Informant Bipolar disorder Discharge Diagnosis 06/04/21 Vital Signs Most recent to oldest [Reference Range]: 1 Height 162 cm (06/04/21 10:47 AM) Weight 98.5 kg (06/04/21 10:47 AM) Oxygen Saturation [94-100 %] 98 % (06/04/21 10:47 AM) Pulse Rate [55-90 bpm] 84 bpm (06/04/21 10:47 AM) Body Mass Index [18.5-24.99] 37.53 *>HHI* (06/04/21 10:47 AM) Blood Pressure [90-138/55-84 mm Hg] 116/ 79mm Hg (06/04/21 10:47 AM) Mode of Delivery (Oxygen) Room air (06/04/21 10:47 AM) Blood pressure sites Arm, left (06/04/21 10:47 AM) Weight Obtained Via Standing scale (06/04/21 10:47 AM) Social History Social History Type Response Smoking Status 5-9 cigarettes (betw een 1/4 to 1/2 pack)/day in last 30 days entered on: 12/05/20 Sex
--- OUTSIDE RECORDS SUMMARY | 2023-07-28 03:59 | XMS_ITS | Continuity of Care Document ---
Author Name Unknown Organization [facility] Adult Address [address] [place] [address]- Care Team Providers Care Press Tender Incendiary Grenade Name Role Phone Katie NOVOA, Alanis Primary Care Physician Encounter [facility] Date(s): 02/13/21 - 03/15/21 [facility] Adult [address] [place] [id number] Allergies, Adverse Reactions, Alerts Substance Reaction [...] Refills, Maintenance,08/24/20 17:36:00 EST, [facility] #[id number], 162.5, cm, 08/01/20 15:54:00 EST, Height, 109.5, [...] Tablet, [facility] - [place], [place] - [id number], 162.5, cm, 09/01/20 7:39:00 EST, Height, 109.5, [...]
[2023-07-28 04:05] LABS: Basophils Absolute Auto 0.1 X10*3/uL (0.0-0.2); Basophils Percent Auto 0.7 % (0-2); Eosinophils Absolute Auto 0.2 X10*3/uL (0.0-0.4); Eosinophils Percent Auto 2.5 % (0-4); Hematocrit 37.1 % (37.0-47.0); Hemoglobin 12.1 g/dl (12.0-16.0); Imm Gran Abs Auto 0.02 X10*3/uL (0.00-0.03); Imm Gran Pct Auto 0.2 % (0.0-0.4); Lymphocytes Absolute Auto 2.8 X10*3/uL (1.2-4.9); Lymphocytes Percent Auto 28.4 % (20-40); MANUAL DIFF FLAG SCAN; Mean Corpuscular HGB Conc 32.6 g/dl (31.0-35.0); Mean Corpuscular Hemoglobin 24.8 pg (27.0-33.0); Mean Corpuscular Volume 76.2 fL (80.0-98.0); Monocytes Absolute Auto 0.7 X10*3/uL (0.1-1.2); Monocytes Percent Auto 7.3 % (2-11); Neutrophils Percent Auto 60.9 % (45-73); PLT CLUMP 1; Red Blood Count 4.87 X10*6/uL (4.20-5.50); SCAN SMEAR FLAG 1
[2023-07-28 04:21] LABS: Platelet Count 236 X10*3/uL (160-400); White Blood Count 9.8 X10*3/uL (4.8-10.8)
[2023-07-28 04:22] LABS: SLIDE REVIEW VERIFIED
[2023-07-28 04:38] LABS: Influenza A PCR NEGATIVE (Negative); Influenza B PCR NEGATIVE (Negative); Resp Syncy Virus RNA Qual PCR NEGATIVE (Negative); SARS COV2 PCR INHOUSE NEGATIVE (Negative)
[2023-07-28 04:40] LABS: Alanine Aminotransferase 9 U/L (0-31); Albumin Level 4.3 g/dL (3.5-5.0); Alkaline Phosphatase 84 U/L (39-117); Anion Gap 14 (12-20); Aspartate Amino Transferase 13 U/L (5-31); Bilirubin Total 0.3 mg/dL (0.0-1.0); Blood Urea Nitrogen 16 mg/dL (9-16); Calcium 10.1 mg/dL (8.4-10.2); Carbon Dioxide 25 mmol/L (22-29); Chloride 107 mmol/L (96-108); Creatinine Clr Calc Pharmacy 97.2; Estimated Glomerular Filt Rate > 60; Glucose Random 96 mg/dL (60-115); Potassium 4.2 mmol/L (3.3-5.1); Sodium 142 mmol/L (135-145); Total Protein 7.9 g/dL (6.5-8.0)
[2023-07-28 04:48] LABS: Troponin-I High Sensitivity < 2.7 ng/L (<3.5-17.0)
--- NOTE | 2023-07-28 06:50 | ED_ITS ---
HPI - Chest Pain General Chief Complaint: Chest Pain Stated Complaint: Chest Pain Time Seen by Provider: 07/28/23 06:50 Source: patient, RN notes reviewed and old records reviewed Mode of arrival: ambulatory History of Present Illness HPI narrative: 37-year-old female with no significant past medical history presenting to the ED complaining of lightheadedness, SOB, palpitations/rapid heart rate x1 week with left-sided/substernal chest pain beginning at 22:00 last night. Reports chest pain worse with lying flat and deep inspiration, relieved with sitting forward. Denies fever/chills, recent illness, cough, new exercises, pedal edema, calf pain abdominal pain, vomiting MD complaint: chest pain Related Data Allergies Allergy/AdvReac Type Severity Reaction Status Date / Time No Known Allergies Allergy Verified 07/28/23 06:55 Review of Systems 2 Review of Systems: Constitutional: No Fever, No Chills ENT/Mouth: No Ear Pain, No Nasal Congestion, No sore throat, No Rhinorrhea, No Swallowing Difficulty Cardiovascular: + Chest Pain, + SOB, +palpitations Respiratory: No Cough, No Sputum Gastrointestinal: + Nausea, No Vomiting, No Diarrhea, No Constipation, No Abdominal pain Genitourinary: No Dysuria, No Urinary Frequency, No Hematuria, No Flank Pain Musculoskeletal: No joint pain, No Myalgias, No Joint Swelling Skin: No Skin Lesions, No rash Neuro: No Weakness, No Numbness, No Paresthesias, + lightheaded Yes all other systems are reviewed and are negative Constitutional: Constitutional: Reports as per [facility] Past Medical History Attestation statement: The following information was validated with the patient. Source: old records reviewed Social History Social History Advance Directives: No Advance Directives Information Provided: No Physical Exam 2 Vital Signs: Vital Signs: Last Vital Signs Temp 97.0 F 07/28/23 02:16 Pulse 70 07/28/23 07:31 Resp 15 07/28/23 04:15 BP 113/76 07/28/23 07:31 Pulse Ox 98 07/28/23 04:15 O2 Del Method Room Air 07/28/23 04:15 BMI result Body Mass Index 33.8 Const: General: cooperative, healthy appearing and no acute distress O rientation/consciousness: patient oriented x3 Limitations: no limitations HEENT: Head: Yes normal to inspection and Yes atraumatic Ears: hearing grossly normal bilaterally General nose exam: Normal external nose present Face and sinus: Yes normal facial exam Eyes: General: appearance normal, both eyes and all related structures EOM: EOMs intact bilaterally Neck: Neck: Yes normal visual inspection and Yes no meningeal signs Chest: Chest palpation & inspection: normal inspection of the chest, no crepitus and no tenderness Resp: Effort & Inspection: normal respiratory effort and no respiratory distress Auscultation: clear to auscultation bilaterally, no crackles, no rales, no rhonchi and no wheezes Cardio: Rate: regular rate Heart sounds: S1 normal heart sound present and S2 normal heart sound present GI: Inspection: Yes normal to inspection Palpation (GI): Soft to palpation, nontender, no guarding and not rigid : General: Yes no CVA tenderness Back/Spine/Pelvis: Back: no CVA tenderness Skin: Rashes: no rashes Wounds: no wounds Neuro: General: patient oriented x3, tone normal and no meningeal signs C ranial nerves: Yes CN's II-XII intact bilaterally Gait exam (Neuro): Normal gait present Extrem: General: Yes normal to inspection, Yes no pedal edema and Yes no calf tenderness Course Course Course Narrative: -0718--no leukocytosis. Initial troponin negative > will obtain 3 hour repeat -COVID/flu/RSV negative XR chest 1V IMPRESSION: No acute cardiopulmonary findings. -[id number] negative > PE unlikely. Troponin x2 negative -TSH WNL Results discussed with patient including worrisome signs and symptoms and strict return precautions, and when to return to the emergency department. They verbalized understanding and feel safe for discharge at this time. Medications Administered Discontinued Medications Generic Name Dose Route Start Last Admin Trade Name Freq PRN Reason Stop Dose Admin Sodium Chloride 1,000 mls @ 999 mls/hr 07/28/23 07:00 07/28/23 07:46 Ns IV 07/28/23 08:00 999 mls/hr .Q1H1M ISABEL Administration Ketorolac Tromethamine 15 mg 07/28/23 06:57 07/28/23 07:48 Ketorolac Tromethamine 15 Mg/Ml Vial IVPUSH 07/28/23 06:58 15 mg ONCE ONE Administration Medical Decision Making Medical Decision Making MDM Narrative: 37-year-old female with no significant past medical history presenting to the ED complaining of lightheadedness, SOB, palpitations/rapid heart rate x1 week with left-sided/substernal chest pain beginning at 22:00 last night. On exam vital signs stable, NAD, nontoxic appearing, lungs CTA, no focal neuro deficits, chest pain not reproducible, no pedal edema/calf tenderness. Symptoms atypical for ACS. Concern for ?PE vs costochondritis vs pericarditis/myocarditis. Rule out pneumonia/infectious and metabolic etiology Plan: EKG, labs, CXR, viral testing, IV Toradol, IVF, orthostatic Please refer to course for remaining clinical decision making, interpretation of labs/imaging results, and discussions with consultants and/or family members. Differential Diagnosis Differential Diagnoses: The differential diagnosis associated with the presentation includes As above Admission/Observation Consideration of admission/observation: Escalation of care including admission/observation considered Lab Data [facility] Lab Attestation statement: I reviewed the patient's lab results. 07/28/23 03:57 07/28/23 04:22 Labs: Lab Results 07/28/23 07/28/23 07/28/23 Range/Units 03:57 04:22 07:43 WBC 9.8 (4.8-10.8) X10*3/uL RBC 4.87 (4.20-5.50) X10*6/uL Hgb 12.1 (12.0-16.0) g/dl Hct 37.1 (37.0-47.0) % MCV 76.2 L (80.0-98.0) fL MCH 24.8 L (27.0-33.0) pg MCHC 32.6 (31.0-35.0) g/dl RDW 14.0 (11.0-16.0) % Plt Count 236 (160-400) X10*3/uL MPV 11.0 (9.4-12.3) fL Immature Gran % (Auto) 0.2 (0.0-0.4) % Neut % (Auto) 60.9 (45-73) % Lymph % (Auto) 28.4 (20-40) % Dade % (Auto) 7.3 (2-11) % Eos % (Auto) 2.5 (0-4) % Baso % (Auto) 0.7 (0-2) % Lymph # (Auto) 2.8 (1.2-4.9) X10*3/uL Dade # (Auto) 0.7 (0.1-1.2) X10*3/uL Eos # (Auto) 0.2 (0.0-0.4) X10*3/uL Baso # (Auto) 0.1 (0.0-0.2) X10*3/uL Abs Immat Gran (auto) 0.02 (0.00-0.03) X10*3/uL Absolute Neuts (auto) 6.0 (2.0-8.3) x10*3/uL Absolute Nucleated RBC 0.000 (0.0-0.012) X10*3/uL Nucleated RBC % (auto) 0.0 (0.0-0.2) /100WBC Smear Tech's Comments VERIFIED D-Dimer High Sensitivty < 150 NG/ML Sodium 142 (135-145) mmol/L Potassium 4.2 (3.3-5.1) mmol/L Chloride 107 (96-108) mmol/L Carbon Dioxide 25 (22-29) mmol/L Anion Gap 14 (12-20) BUN 16 (9-16) mg/dL Creatinine 0.88 (0.5-1.4) mg/dL Estim Creat Clear Calc 97.2 Estimated GFR > 60 Random Glucose 96 (60-115) mg/dL Calcium 10.1 (8.4-10.2) mg/dL Magnesium 2.2 (1.6-2.6) mg/dL Total Bilirubin 0.3 (0.0-1.0) mg/dL AST 13 (5-31) U/L ALT 9 (0-31) U/L Alkaline Phosphatase 84 (39-117) U/L Troponin I High Sens < 2.7 < 2.7 (<3.5-17.0) ng/L Total Protein 7.9 (6.5-8.0) g/dL Albumin 4.3 (3.5-5.0) g/dL TSH 2.80 (0.32-4.0) uIU/mL Influenza Type A (PCR) NEGATIVE (Negative) Influenza Type B (PCR) NEGATIVE (Negative) RSV RNA Qual (PCR) NEGATIVE (Negative) SARS-CoV-2 RNA (RT-PCR) NEGATIVE (Negative) Independent Interpretation I performed an independent interpretation of an: EKG (My interpretation EKG normal sinus rhythm with sinus arrhythmia rate of 74. Pr interval 162. QTC 399. No STEMI) and Plain X-Ray Radiology Impression Discussion of test interpretation with radiology: I have reviewed the radiologist's reading. External Record Review External record reviewed: Inpatient record, Office record, Outpatient record, Prior outpatient labs, Prior outpatient radiology, Primary care record and Outside ED record Tests considered The following testing was considered but not selected: As above Prescription Management I considered prescription management with: Pain Medication Discharge Plan Discharge Clinical Impression: Atypical chest pain Patient Disposition: Home, Self-Care Instructions: Noncardiac Chest Pain (ED) Additional Instructions: Your blood work and chest x-ray were reassuring you tested negative for COVID, flu, RSV Please of close follow-up with your doctor and Cardiology If symptoms persist or worsen return to the ED Referrals: [facility] [place] [facility] [Provider Group] Franco Beard MD [Primary Care Provider] - 3 days
--- NOTE | 2023-07-28 07:22 | ECG_ITS ---
Test Reason : CHEST PAIN Blood Pressure : / mmHG Vent. Rate : 063 BPM Atrial Rate : 063 BPM P-R Int : 172 ms QRS Dur : 092 ms QT Int : 410 ms P-R-T Axes : 027 031 042 degrees QTc Int : 419 ms Normal sinus rhythm Incomplete right bundle branch block Borderline ECG No previous ECGs available Referred By: Britt Lei Electronically Signed By:DANO MONTES
[2023-07-28 07:34] LABS: Magnesium 2.2 mg/dL (1.6-2.6)
[2023-07-28] MEDS: 0.9 % Sodium Chloride 1,000 ML 999 ML IV (07:46)
[2023-07-28] MEDS: Ketorolac Tromethamine 15 MG/ML VIAL IVPUSH (07:48)
--- NOTE | 2023-07-28 08:00 | PC.NURSE ---
assumed care of pt at 0700. pt a&o x4, pleasant, calm, and cooperative. pt appears to be anxious at times. 20G IV placed to LAC. labs drawn, fluids infusing and pt medicated per mar. pt resting quietly on stretcher in no apparent distress. rr even/unlabored. call bryant within reach. plan of care ongoing.
[2023-07-28 08:05] LABS: D Dimer High Sensitivity < 150 NG/ML
[2023-07-28 08:10] LABS: Troponin-I High Sensitivity < 2.7 ng/L (<3.5-17.0)
== END 2023-07-28 09:46 | disposition home or self-care (01) ==
PROVIDERS: Physician Assistant; Emergency Provider Emergency Medicine; PCP Internal Medicine
DX: R07.89 Other chest pain (principal); R06.02 Shortness of breath; R00.2 Palpitations; R11.2 Nausea with vomiting, unspecified; Z20.822 Contact with and (suspected) exposure to COVID-19; Z20.828 Contact with and (suspected) exposure to other viral communicable diseases; Z79.899 Other long term (current) drug therapy
CPT/HCPCS: 0241U; 36415; 71045; 80053; 83735; 84443; 84484; 85025; 85379; 93005; 96361; 96374; 99284; 99285; J1885

== ENCOUNTER → 2023-07-28 02:05 | Outpatient (BNV) | payer OTHER, MEDICAID, SELFPAY | PROVIDERS: Emergency Provider Emergency Medicine; PCP Internal Medicine; Visit Provider Internal Medicine | DX: R94.31 Abnormal electrocardiogram [ECG] [EKG] (principal); R07.9 Chest pain, unspecified | CPT/HCPCS: 93010 ==